=== PATIENT | male | born 1940 | race Caucasian/White ===

== ENCOUNTER → 2019-08-15 14:15 | Outpatient (BNVA) | payer MEDICARE, SELFPAY | PROVIDERS: Family Provider Internal Medicine; PCP Internal Medicine; Visit Provider Urology | DX: R97.20 Elevated prostate specific antigen [PSA] (principal) | CPT/HCPCS: 84153 ==

== ENCOUNTER → 2019-08-18 09:05 | Outpatient (BNVA) | payer MEDICARE, SELFPAY | PROVIDERS: Family Provider Internal Medicine; PCP Internal Medicine; Visit Provider Urology | DX: N41.1 Chronic prostatitis (principal); N40.1 Benign prostatic hyperplasia with lower urinary tract symptoms; R97.20 Elevated prostate specific antigen [PSA] | CPT/HCPCS: 81001 ==

== ENCOUNTER 2019-08-19 14:00 | Outpatient (CLI) | payer MEDICARE, SELFPAY ==
--- NOTE | 2019-08-19 14:06 | XR_ITS ---
WS: [id number] Right shoulder, 3 views, 08/19/2019 Clinical Data: pain in right shoulder Comparison: None. Findings: No fractures or dislocations are seen. The AC joint is normal. There are arthritic changes on the usama face of the glenoid fossa. There is a spur at the inferior aspect of the humeral head as it articulat es with the inferior aspect of the glenoid.The adjacent right clavicle and right ribs are not remarka ble. XR/XR shoulder RT min 2V* [id number] Impression: Osteoarthritic change of the glenoid fossa and inferior aspect of the medial ri ght humeral head.
== END 2019-08-19 14:01 | disposition home or self-care (01) ==
LOC: RAD 14:03
PROVIDERS: Family Provider Internal Medicine; PCP Internal Medicine; Visit Provider Internal Medicine
DX: M25.511 Pain in right shoulder (principal)
CPT/HCPCS: 73030

== ENCOUNTER 2019-11-29 13:21 | Outpatient (CLI) | payer MEDICARE, SELFPAY ==
--- NOTE | 2019-11-29 13:46 | MR_ITS ---
WS: [id number] MRI RIGHT SHOULDER HISTORY: RIGHT SHOULDER PAIN COMPARISON: Radiographs 08/19/2019 TECHNIQUE: Multiplanar sequences of the shoulder joint are submitted. Complete tear distal supraspinatus tendon with the tendon retracted to the medial humeral head. There is fluid extending along the tendon sheath. Severe atrophy of the supraspinatus muscle. Motion obscuring detail of the tendons of the infraspinatus and subscapularis muscles. No significant atrophy but there is increased signal in the distal tendons. Partial tears versus tendinopathy. Ther e is no muscle atrophy of the subscapularis or infraspinatus. Biceps tendon is in normal position with increased fluid in the tendon sheath. Osteophytic ridging with subchondral cystic changes, loss of cartilage and edema in the humeral head. Severe subchondral cystic changes and loss of cartilage involving the glenoid. Marked narrowing of t he glenohumeral joint. Increased signal throughout the entire labrum. Moderate AC joint narrowing with bony hypertrophy. Increase fluid in the subacromial and subdeltoid b ursa. Humeral head is high riding abutting the undersurface of the distal acromion. No os acromion. MR/MR shoulder RT wo con* [id number] IMPRESSION: 1. Severe degenerative changes at the glenohumeral joint. 2. Torn retracted supraspinatus tendon. Chronic tear as there is muscle atroph y. 3. Motion artifact obscuring detail of the distal subscapularis and infraspina tus tendons. There is increased signal. Partial tears versus tendinopathy. 4. Severe degenerative changes involving the humeral head and at the glenohume ral joint with moderate AC joint arthritis.
== END 2019-11-29 13:22 | disposition home or self-care (01) ==
LOC: RADWPI 13:24
PROVIDERS: Family Provider Internal Medicine; PCP Internal Medicine; Visit Provider Internal Medicine
DX: M25.511 Pain in right shoulder (principal); M75.101 Unspecified rotator cuff tear or rupture of right shoulder, not specified as traumatic
CPT/HCPCS: 73221

== ENCOUNTER → 2020-01-16 13:54 | Outpatient (BNVA) | payer MEDICARE, SELFPAY | PROVIDERS: Family Provider Internal Medicine; PCP Internal Medicine; Visit Provider Nurse Practitioner Family | DX: R97.20 Elevated prostate specific antigen [PSA] (principal) | CPT/HCPCS: 84153 ==

== ENCOUNTER → 2020-01-19 09:45 | Outpatient (BNVA) | payer MEDICARE, SELFPAY | PROVIDERS: Family Provider Internal Medicine; PCP Internal Medicine; Visit Provider Urology | DX: R97.20 Elevated prostate specific antigen [PSA] (principal); N40.1 Benign prostatic hyperplasia with lower urinary tract symptoms | CPT/HCPCS: 81001 ==

== ENCOUNTER 2020-06-29 08:44 | Outpatient (CLI) | payer MEDICARE, SELFPAY ==
--- NOTE | 2020-06-29 09:00 | CT_ITS ---
WS: [id number] CT scan of the chest with IV contrast, additional two-dimensional coronal and sagittal reconstruction was performed. 06/29/2020 Clinical Data: PULMONARY NODULE Comparison: CT chest, 03/09/2018. DLP: 715.[address] scans at [facility] use at least one of these dose optimization techniques: automat ed exposure control; mA and/or kV adjustment per patient size (includes targeted exams where dose is matched to clinical indication); or iterative reconstruction. Findings: There is a right upper lobe nodule measuring 0.6 cm seen best on axial image 1971 which is unchanged. The there is a nodule at the right pleural surface seen best on axial image 32 of 71 measuring 1.1 c m unchanged. The left upper lobe nodule is not imaged. There are emphysematous changes throughout the lungs especially in the upper lobes. No large masses are seen. There are no effusions. No pneumonia or pneumothorax is seen. The heart size is normal with no pericardial effusion. The pulmonary arteria l system and thoracic aorta demonstrate no dilatations. The aortic arch and descending aorta show ca lcification. 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 The trachea bifurcates normally into the bronchi. The thyroid gland shows normal enhancement. There is no axillary or signi ficant mediastinal adenopathy. The upper abdomen shows no change from before. There are bilateral renal cysts. Osteoarthritic change of the thoracic vertebral bodies is seen. CT/CT chest w con* [id number] Impression: 1. 2 right upper lobe nodules are unchanged. 2. The left upper lobe nodule is no longer present. No new nodules or masses ar e seen. 3. Emphysematous changes throughout both lungs.
[2020-06-29] MEDS: iodixanol 320 mg/mL 100mL Btl IV (09:35)
== END 2020-06-29 08:45 | disposition home or self-care (01) ==
LOC: RADWPI 08:49
PROVIDERS: PCP Internal Medicine; Visit Provider Internal Medicine
DX: R91.1 Solitary pulmonary nodule (principal); R91.8 Other nonspecific abnormal finding of lung field
CPT/HCPCS: 71260; Q9967

== ENCOUNTER → 2020-07-18 10:17 | Outpatient (BNVA) | payer MEDICARE, SELFPAY | PROVIDERS: PCP Internal Medicine; Visit Provider Specialist | DX: M65.341 Trigger finger, right ring finger (principal) | CPT/HCPCS: 73130 ==

== ENCOUNTER → 2020-07-23 14:49 | Outpatient (BNVA) | payer MEDICARE, SELFPAY | PROVIDERS: PCP Internal Medicine; Visit Provider Specialist | DX: Z20.822 Contact with and (suspected) exposure to COVID-19 (principal) | CPT/HCPCS: 87635 ==

== ENCOUNTER 2020-07-27 06:45 | Day surgery (SDC) | payer MEDICARE, SELFPAY ==
[2020-07-26 13:14] VITALS: BMI 21.2
--- NOTE | 2020-07-27 06:56 | W.PM.OPSUD ---
Surgery/Procedure H&P Update DATE OF PROCEDURE: July 27, 2020 DATE H&P PERFORMED: 07/18/20 H&P UPDATE INFORMATION: I have reviewed H&P completed within last 30 days, I have examined patient prior to procedure, No changes to prior documentation and H&P is in [facility] EMR on date indicated PREOP DIAGNOSIS: Ring long and ring trigger fingers PLANNED PROCEDURE: Operation Date: 07/27/20 08:00 Proposed Procedures p Right ring and long finger trigger digit release 54126 M65.30(Right) - Martha Gomez MD Related Problem List Diagnoses (1) Trigger finger, right middle finger: (2) Trigger finger, right ring finger:
[2020-07-27 07:07] VITALS: BP 159/77; PULSE 85; RESP 18; TEMP 36.3; O2SAT 99
[2020-07-27 07:18] LABS: Basophils # 0.1 10^3/uL (0.0-0.1); Basophils % 0.7 %; Eosinophils # 0.3 10^3/uL (0.0-0.8); Hematocrit 42.5 % (42.0-52.0); Hemoglobin 13.6 g/dL (11.7-16.6); Lymphocytes # 1.3 10^3/uL (0.8-4.8); Lymphocytes % 15.2 %; Mean Corpuscular Hemoglobin 31.6 pg (28.0-34.0); Mean Corpuscular Volume 98.6 fL (80-94); Mean Platelet Volume 9.1 fL (7.4-10.4); Monocytes # 1.1 10^3/uL (0.2-0.9); Monocytes % 12.4 %; Neutrophils # 5.88 10^3/uL (1.8-7.7); Neutrophils % 68.6 %; Nucleated Red Blood Cells % 0 %; Platelet Count 283 10^3/cmm (130-400); Red Blood Count 4.31 10^6/uL (4.1-5.3); Red Cell Distribution Width 13.6 % (12.1-15.1); White Blood Count 8.6 10^3/uL (4.0-10.0)
[2020-07-27] MEDS: CELEcoxib 200 mg Capsule 400 MG PO (07:31)
[2020-07-27] MEDS: sodium chloride 0.9% 1,000 ML 30 ML IV (07:31)
[2020-07-27 07:33] LABS: Alanine Aminotransferase 12 U/L (0-41); Albumin Level 4.1 g/dL (3.5-5.2); Alkaline Phosphatase 71 IU/L (40-130); Anion Gap 11.3 (5-19); Aspartate Amino Transferase 15 U/L (0-40); Blood Urea Nitrogen 23 mg/dL (8-23); Calcium 9.6 mg/dL (8.5-10.5); Carbon Dioxide 31 mmol/L (22-29); Chloride 104 mmol/L (98-107); Creatinine Clr Calc Pharmacy 46.1397; Globulin 3.1 g/dL (1.3-4.6); Glucose 106 mg/dL (65-115); Osmolality Calculated 298 mOsm/kg (285-295); Potassium 4.3 mmol/L (3.5-5.1); Sodium 142 mmol/L (136-145); Total Bilirubin 0.3 mg/dL (0.15-1.2); Total Protein 7.2 g/dL (6.6-8.7)
--- NOTE | 2020-07-27 08:24 | ANES.PREANE2 ---
Pre-Anesthetic Assessment Pre-Anesthetic Assessment: Height/Weight: Height 1.73 m Weight 63.503 kg Temp Pulse Resp BP Pulse Ox 97.3 F L 85 18 159/77 99 07/27/20 07:07 07/27/20 07:07 07/27/20 07:07 07/27/20 07:07 07/27/20 07:07 Preop Diagnosis: Ring long and ring trigger fingers Proposed Procedure: Operation Date: 07/27/20 08:00 Proposed Procedures p Right ring and long finger trigger digit release [id number] M65.30(Right) - Martha Gomez MD Was Beta Ankur taken within 24 hours: N/A Last intake: Intake Last Liquid Date 07/26/20 Last Solid Date 07/26/20 Social: Social History: Tobacco and No alcohol Exam: Pre-Anes Outpt Exam: alert, oriented x 3 and regular rate & rhythm Additional Exam Findings (including area of procedure): rhonchi Airway: Submandibular: WNL Cervical ROM: WNL MP: 2 Dentition: False Pulmonary: Pulmonary: COPD CV/HEM: CV/HEM: HTN : : None reported Hepatic: Hepatic: None reported GI: GI: None reported Metabolic: Metabolic: None reported Musc/skel: Musc/skel: None reported Neuropsych: Neuropsych: None reported Anesthetic Plan: ASA status: 3 Anesthesia: MAC Risk of > 500 ml blood loss (7ml/kg in children): No Meds/Allergies Current Medications: Current Medications Generic Name Dose Route Start Last Admin Trade Name Freq PRN Reason Stop Dose Admin Sodium Chloride 1,000 mls @ 30 ml s/hr 07/27/20 06:45 07/27/20 07:31 Sodium Chloride 0.9% IV 07/28/20 06:44 30 mls/hr .Q24H ADDY Administration PFSH Anesthesia PFSH: Medical History (Updated 07/19/20 @ 11:16 by Martha Gomez MD) Benign prostatic hyperplasia with lower urinary tract symptoms Chronic prostatitis Elevated PSA Surgical History History of amputation of toe History of appendectomy History of inguinal hernia repair right History of tonsillectomy Family History Mother , at age 84-leukemia No problems noted. Father , at age 64--heart attack No problems noted. Social History Smoking and tobacco status: current every day smoker Alcohol intake: never Marital status: Current occupational status: employed History of recent travel: No Data Anesthesia CBC & Chem 7: 07/27/20 07:10 07/27/20 07:10 Other Labs: Laboratory Results - last 48 hr 07/27/20 07/27/20 07:10 07:10 WBC 8.6 RBC 4.31 Hgb 13.6 Hct 42.5 MCV 98.6 H MCH 31.6 MCHC 32.0 RDW 13.6 Plt Count 283 MPV 9.1 Neut % (Auto) 68.6 Lymph % (Auto) 15.2 [place] % (Auto) 12.4 Eos % (Auto) 3.0 Baso % (Auto) 0.7 Neut # (Auto) 5.88 Lymph # (Auto) 1.3 [place] # (Auto) 1.1 H Eos # (Auto) 0.3 Baso # (Auto) 0.1 Nucleated RBC % (auto) 0 Nucleated RBCs # 0.0 Sodium 142 Potassium 4.3 Chloride 104 Carbon Dioxide 31 H Anion Gap 11.3 BUN 23 Creatinine 1.2 GFR Calculation Not Reportable Glucose 106 Calculated Osmolality 298 H Calcium 9.6 Total Bilirubin 0.3 AST 15 ALT 12 Alkaline Phosphatase 71 Total Protein 7.2 Albumin 4.1 Globulin 3.1 Cardiac Studies: No Data to Display
[2020-07-27 09:30] VITALS: BP 128/73; PULSE 75; RESP 18; TEMP 36.4; O2SAT 100
--- NOTE | 2020-07-27 09:34 | W.PM.OPSUD ---
Surgery/Procedure H&P Update DATE OF PROCEDURE: July 27, 2020 DATE H&P PERFORMED: 07/18/20 H&P UPDATE INFORMATION: I have reviewed H&P completed within last 30 days, I have examined patient prior to procedure, No changes to prior documentation and H&P is in [facility] on date indicated PREOP DIAGNOSIS: Ring long and ring trigger fingers PLANNED PROCEDURE: Operation Date: 07/27/20 08:00 Proposed Procedures p Right ring and long finger trigger digit release 91271 M65.30(Right) - Martha Gomez MD
--- NOTE | 2020-07-27 09:35 | PM.OP ---
Operative Report Date of procedure: July 27, 2020 Pre-op Diagnosis: Ring long and ring trigger fingers Post-op diagnosis: same Post-op Findings: Significant compression across the tendons with minimal tendon damage. 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 Primarily, it involves the long and ring fingers. After discussion, he wished to proceed with trigger finger release of both fingers. Risks and complications were discussed with him. Preoperatively, they were also discussed with his . Consents were signed. Procedure: Patient was brought to the operating theater. He was placed on the operating room table. A Accord block was administered without difficulty. Patient tolerated it well. Prophylactic antibiotic, Ancef 2 g was administered. A tourniquet was placed high on the arm and was elevated for the Accord block following exsanguination. Tourniquet time was 31 minutes. Surgical pause was performed prior to commencement of the surgical procedure. At the time of the surgical pause we identified the site and side of surgery. We also identified the patient's identity and appropriate administration of IV antibiotics. Following the surgical pause, an incision was made along the distal palmar crease beneath the long and ring fingers. Dissection continued through the skin to the subcutaneous tissues using a scalpel. Blunt dissection was then utilized to spread soft tissues and allow access to the A1 wily. Each A1 wily was identified. It was then incised longitudinally and sharply using a knife. This was accomplished without difficulty and atraumatically. Once the A1 pulleys were released, tendons were brought up out of the wound and evaluated. There were no gross masses on the tendons. Tendons were returned to normal position. Proximally, we also evaluated for compression secondary to fibrous tissue. Release was accomplished proximally as well. We then irrigated the wound and subsequently closed it with 3-0 nylon with an interrupted mattress type suture. Following closure of the wound, the wound was injected with local anesthetic into the subcutaneous tissues. Sterile dressing was then placed consisting of OpSite, fluffed fluffs, sterile soft roll, and an Mateus wrap. The patient was returned to recovery in satisfactory condition. He will be discharged home to follow-up with me in the office. There were no complications and no specimens.
[2020-07-27 09:44] VITALS: BP 136/82; PULSE 73; RESP 18; O2SAT 100
--- NOTE | 2020-07-27 10:08 | ANE.PACU2 ---
Inpatient post-anesthesia follow up: Airway intact: Yes Vital signs: Temperature 97.6 F Pulse Rate 73 Respiratory Rate 18 Blood Pressure 136/82 Pulse Oximetry 100 Oxygen Delivery Me thod Nasal Cannula Oxygen Flow Rate 3 Fraction of Inspir ed Oxygen Hydration adequate: Yes Nausea and vomiting: No Pain level: 1 Mental status: Baseline
== END 2020-07-27 10:10 | disposition home or self-care (01) ==
PROVIDERS: PCP Internal Medicine; Visit Provider Specialist
PROC: (CPT 26055; principal; 2020-07-27 08:00)
DX: M65.341 Trigger finger, right ring finger (principal); M65.331 Trigger finger, right middle finger; J44.9 Chronic obstructive pulmonary disease, unspecified; I10 Essential (primary) hypertension; F17.210 Nicotine dependence, cigarettes, uncomplicated
CPT/HCPCS: 26055 ×2; 12345; 36415; 80053; 85025; 96365; J0131; J0690; J3490; J7030

== ENCOUNTER → 2020-07-30 11:24 | Outpatient (BNVA) | payer MEDICARE, SELFPAY | PROVIDERS: PCP Internal Medicine; Visit Provider Urology | DX: R97.20 Elevated prostate specific antigen [PSA] (principal) | CPT/HCPCS: 84153 ==

== ENCOUNTER → 2020-08-01 11:04 | Outpatient (BNVA) | payer MEDICARE, SELFPAY | PROVIDERS: PCP Internal Medicine; Visit Provider Urology | DX: N40.1 Benign prostatic hyperplasia with lower urinary tract symptoms (principal); R97.20 Elevated prostate specific antigen [PSA] | CPT/HCPCS: 81003 ==

== ENCOUNTER → 2020-10-17 13:39 | Outpatient (BNVA) | payer MEDICARE, SELFPAY | PROVIDERS: PCP Internal Medicine; Visit Provider Internal Medicine | DX: M65.331 Trigger finger, right middle finger (principal); M65.341 Trigger finger, right ring finger; Z20.822 Contact with and (suspected) exposure to COVID-19 | CPT/HCPCS: 87635 ==

== ENCOUNTER 2020-10-23 07:10 | Outpatient (CLI) | payer MEDICARE, SELFPAY ==
--- NOTE | 2020-10-23 10:35 | PFTS_ITS ---
Date of Study:10/23/20 Date of Dictation: 10/24/20 MECHANICS: Postbronchodilator Forced vital capacity (FVC) is reduced . Postbronchodilator Forced expiratory volume in one second (FEV1) is severely reduced 36%. FEV1/FVC is reduced. FLOW VOLUME LOOP: severe scooping of expiratory limb suggestive of obstruction of airways. LUNG VOLUMES: Not measured DIFFUSING CAPACITY FOR CARBON MONOXIDE: severely reduced 30% . INTERPRETATION: The spirometry consistent with severe obstructive ventilatory defect with a postbronchodilator FEV1 36% and 0.97 L. Lung volumes not measured. There is severe gas transfer defect 30%. 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 Correlate clinically. MTDD
== END 2020-10-23 07:11 | disposition home or self-care (01) ==
LOC: RT 07:11
PROVIDERS: PCP Internal Medicine; Visit Provider Internal Medicine
DX: J44.9 Chronic obstructive pulmonary disease, unspecified (principal)
CPT/HCPCS: 94060; 94729; J7611

== ENCOUNTER → 2020-11-15 14:29 | Outpatient (BNVA) | payer MEDICARE, SELFPAY | PROVIDERS: PCP Internal Medicine; Visit Provider Surgery | DX: K40.90 Unilateral inguinal hernia, without obstruction or gangrene, not specified as recurrent (principal); Z20.822 Contact with and (suspected) exposure to COVID-19 | CPT/HCPCS: 87635 ==

== ENCOUNTER 2020-11-21 08:12 | Day surgery (SDC) | payer MEDICARE, SELFPAY ==
[2020-11-20 14:50] VITALS: BMI 20.7
[2020-11-21] VITALS (12 sets, daily range): BP systolic 126–158; BP diastolic 65–83; PULSE 70–89; RESP 15–20; TEMP 36.3–36.6; O2SAT 95–100
[2020-11-21] MEDS: sodium chloride 0.9% 1,000 ML 30 ML IV (08:41)
--- NOTE | 2020-11-21 08:41 | ECG_ITS ---
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 Measurements Intervals [place] Rate: 66 P: 75 MS: 141 QRS: -76 QRSD: 132 T: 49 QT: 399 QTc: 421 Interpretive Statements SINUS RHYTHM MARKED LEFT AXIS DEVIATION [QRS AXIS < -30] RIGHT BUNDLE BRANCH BLOCK [120+ ms QRS DURATION, UPRIGHT V1, 40+ ms S IN I/aVL/V4/V5/V6] Compared to ECG 04/26/2018 08:57:54 Left-axis deviation now present Right bundle-branch block now present Sinus arrhythmia no longer present Myocardial infarct finding no longer present Electronically Signed On 11-21-2020 18:22:16 CDT by Rama Condon M.D. [email or web address]
--- NOTE | 2020-11-21 09:06 | P.HP_ITS ---
Same Day Surgery H&P Indication for Procedure/HPI DATE OF PROCEDURE: November 21, 2020 CHIEF COMPLAINT/INDICATIONFOR SURGICAL PROCEDURE: Recurrent inguinal hernia PREOP DIAGNOSIS: Recurrent right inguinal hernia PLANNED PROCEDRUE: Operation Date: 11/21/20 10:00 Proposed Procedures p Laparoscopic Inguinal Hernia Repair 08100 K40.90(Not Applicable) - Ted marc MD Medications/Allergies* Home Medications Medication Instructions Recorded Confirmed Type acetaminophen 500 mg tablet 500 mg PO Q6H PRN 08/18/19 11/21/20 History albuterol sulfate 2.5 mg INHALATION Q4H PRN 08/18/19 11/21/20 History albuterol sulfate 90 mcg/actuation 2 puff INHALATION Q6H PRN 08/18/19 11/21/20 H istory aerosol inhaler ascorbic acid (vitamin C) 1,000 mg 1,000 mg PO Q12H 08/18/19 11/20/20 History tablet,extended release fluticasone fur. 100 mcg-umeclid 1 inh INHALATION DAILY 08/18/19 11/21/20 History 62.5 mcg-vilant 25 mcg inhalat.powder ibuprofen 200 mg capsule 200 mg PO Q6H PRN 08/18/19 11/21/20 History meclizine 25 mg tablet 25 mg PO .Q6 HOURS PRN tab 08/18/19 11/21/20 History multivitamin,jw-gthh-nwbivtbc 1 tab PO DAILY 08/18/19 11/20/20 History atorvastatin [Lipitor] 20 mg PO DAILY 07/26/20 11/20/20 History esomeprazole magnesium [Nexium] 20 mg PO DAILY 11/20/20 11/20/20 History Allergies/Adverse Reactions Allergy/AdvReac Type Severity Reaction Status Date / Time No Known Allergies Allergy Verified 11/20/20 14:46 Current Medications: Generic Name Dose Route Start Last Admin Trade Name Freq PRN Reason Stop Dose Admin Sodium Chloride 1,000 mls @ 30 mls/hr 11/21/20 08:30 11/21/20 08:41 Sodium Chloride 0.9% IV 11/22/20 08:29 30 mls/hr .Q24H ADDY Administration Pertinent History/Comorbid Conditions* Medical History (Updated 11/06/20 @ 16:30 by Ted Moore MD) Benign prostatic hyperplasia with lower urinary tract symptoms Chronic prostatitis COPD (chronic obstructive pulmonary disease) Elevated PSA Surgical History (Updated 11/06/20 @ 16:30 by Ted Moore MD) History of amputation of toe History of appendectomy History of inguinal hernia repair right History of tonsillectomy Status post left inguinal hernia repair Family History Father, at age 64--heart attack Mother, at age 84-leukemia Social History Smoking and tobacco status: current every day smoker cigarettes Packs smoked per day: 1 Quit status (tobacco): has tried quititng Alcohol intake: never Marital status: Current occupational status: employed History of recent travel: No Pertinent Exam Findings alert, oriented x 3 and operative site marked Recommendations Surgery/Procedure today Coding Level of Care Code 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
[2020-11-21] MEDS: ipratropium-albuterol 3 mL Neb INHALATION (09:16)
--- NOTE | 2020-11-21 09:17 | P.ANESASSM_ITS ---
Pre-Anesthetic Assessment Pre-Anesthetic Assessment: Height/Weight: Height 1.75 m Weight 63.503 kg Temp Pulse Resp BP Pulse Ox 97.6 F 89 18 158/80 95 11/21/20 08:34 11/21/20 09:16 11/21/20 09:11 11/21/20 08:34 11/21/20 09:11 Preop Diagnosis: Recurrent right inguinal hernia Proposed Procedure: Operation Date: 11/21/20 10:00 Proposed Procedures p Laparoscopic Inguinal Hernia Repair 13720 K40.90(Not Applicable) - Ted Moore MD Familial anesthetic complications: none Was Beta Ankur taken within 24 hours: N/A Was Clonidine taken within 24 hours: N/A Last intake: Intake Last Liquid Date 11/20/20 Last Liquid Time 21:00 Last Solid Date 11/20/20 Last Solid Time 21:00 Social: Social History: No alcohol and No tobacco Exam: Pre-Anes Outpt Exam: alert, oriented x 3, clear to auscultation bilaterally and regular rate & rhythm Airway: Cervical ROM: WNL MP: 2 Dentition: False Pulmonary: Pulmonary: COPD CV/HEM: CV/HEM: HTN Anesthetic Plan: ASA status: 3 Anesthesia: General Risk of > 500 ml blood loss (7ml/kg in children): No Meds/Allergies Current Medications: Current Medications Generic Name Dose Route Start Last Admin Trade Name Freq PRN Reason Stop Dose Admin Sodium Chloride 1,000 mls @ 30 ml s/hr 11/21/20 08:30 11/21/20 08:41 Sodium Chloride 0.9% IV 11/22/20 08:29 30 mls/hr .Q24H ADDY Administration PFSH Anesthesia PFSH: Medical History Benign prostatic hyperplasia with lower urinary tract symptoms Chronic prostatitis COPD (chronic obstructive pulmonary disease) Elevated PSA Surgical History History of amputation of toe History of appendectomy History of inguinal hernia repair right History of tonsillectomy Status post left inguinal hernia repair Family History Mother , at age 84-leukemia No problems noted. Father , at age 64--heart attack No problems noted. Social History Smoking and tobacco status: current every day smoker cigarettes Packs smoked per day: 1 Quit status (tobacco): has tried quititng Alcohol intake: never Marital status: Current occupational status: employed History of recent travel: No Data Anesthesia Cardiac Studies: No Data to Display
--- NOTE | 2020-11-21 11:16 | P.OP_ITS ---
Operative Report Date of procedure: November 21, 2020 Pre-op Diagnosis: Recurrent right inguinal hernia Post-op Diagnosis: Recurrent reducible direct right inguinal hernia Procedure Done: Laparoscopic total extraperitoneal repair of recurrent right direct inguinal hernia with 16 x 10 cm Surgimax 3D mesh Pathology: none sent Surgeon: Ted Moore Anesthesia: General Condition: stable Disposition: PACU Procedure: The patient was taken to the operating room and intubated under general anesthesia. After IV antibiotic was administered, the abdomen was prepped and draped in a sterile manner. Using a 15 blade, a 1.0 cm transverse incision was made infraumbilically on the right side. Subcutaneous tissue was divided using electrocautery and the anterior rectus sheath divided using an 11 blade. The rectus muscle was retracted laterally and the extraperitoneal space identified. A 11 mm port was placed and 12 mm of pneumoperitoneum was created. A 10 mm 30? scope was introduced and the retrorectus space was opened using the camera up to the pubic symphysis and 5 mm ports were placed in the midline, one 2-fingerbreadths above the pubic symphysis and the other midway between these two ports under direct visualization. Blunt dissection was carried out to open up the tissue in the midline and to the pubic symphysis, which was identified. The dissection was then carried laterally where the iliopubic tract was sofia ntified. There was no femoral or obturator hernia noted but there was moderate sized direct hernia which was reduced without difficulty. The inferior epigastric artery was identified and dissection was carried posterior to it and laterally, the space was opened up to the level of the umbilicus superior to the anterior superior iliac spine. I then proceeded to dissect out the spermatic cord and there was no indirect hernia sac noted. 16 x 10cm Surigmax 3D mesh was rolled and introduced through the 10 mm port and then rolled laterally and apposed well against the abdominal wall to cover the myopectineal orifice completely. 10 Cc of 0.5% Marcaine was infiltrated into the preperitoneal space. The extraperitoneal space was desufflated under direct visualization to ensure no slippage of hernial sac under the mesh. All ports were removed, the anterior rectus fascia at the infraumbilical port closed using figure of eight 0 Vicryl sutures, subcutaneous tissue approximated using 3-0 Vicryl sutures and skin at all three port sites were closed using running subcuticular 4-0 Monocryl sutures and Dermabond. 10 mL of 0.5% Marcaine was infiltrated at the port sites. The patient was stable throughout the procedure, extubated and transferred to recovery room.
[2020-11-21] MEDS: HYDROcodone-acetaminophen 5-325 mg Tablet 1 TAB PO (11:49)
--- NOTE | 2020-11-21 14:11 | ANE.PACU2 ---
Inpatient post-anesthesia follow up: Airway intact: Yes Vital signs: Temperature 97.8 F Pulse Rate 70 Respiratory Rate 18 Blood Pressure 133/77 Pulse Oximetry 99 Oxygen Delivery Me thod Nasal Cannula Oxygen Flow Rate 2.0 Fraction of Inspir ed Oxygen Hydration adequate: Yes Nausea and vomiting: No Pain level: 1 Mental status: Baseline
== END 2020-11-21 12:55 | disposition home or self-care (01) ==
PROVIDERS: PCP Internal Medicine; Visit Provider Surgery
PROC: (CPT 49650; principal; 2020-11-21 09:50)
DX: K40.91 Unilateral inguinal hernia, without obstruction or gangrene, recurrent (principal); J44.9 Chronic obstructive pulmonary disease, unspecified; I10 Essential (primary) hypertension; N40.0 Benign prostatic hyperplasia without lower urinary tract symptoms; F17.210 Nicotine dependence, cigarettes, uncomplicated
CPT/HCPCS: 49651; 93005; 94640; C1781; J0690; J2370; J2704; J2710; J3010; J3490; J7030

== ENCOUNTER 2021-01-24 12:57 | Outpatient (RCR) | payer MEDICARE, SELFPAY | END 2021-02-09 23:59 | disposition home or self-care (01) | LOC: PULRHB 12:57 | PROVIDERS: PCP Internal Medicine; Visit Provider Internal Medicine | DX: J44.9 Chronic obstructive pulmonary disease, unspecified (principal); R97.20 Elevated prostate specific antigen [PSA]; N40.1 Benign prostatic hyperplasia with lower urinary tract symptoms | CPT/HCPCS: 84153; 94618; G0424 ==

== ENCOUNTER → 2021-01-29 12:20 | Outpatient (BNVA) | payer MEDICARE, SELFPAY | PROVIDERS: PCP Internal Medicine; Visit Provider Urology | DX: R97.20 Elevated prostate specific antigen [PSA] (principal); N40.1 Benign prostatic hyperplasia with lower urinary tract symptoms | CPT/HCPCS: 81003 ==

== ENCOUNTER 2021-02-10 06:00 | Outpatient (RCR) | payer MEDICARE, SELFPAY | END 2021-03-12 23:59 | disposition home or self-care (01) | LOC: PULRHB 06:00 | PROVIDERS: PCP Internal Medicine; Visit Provider Internal Medicine | DX: J44.9 Chronic obstructive pulmonary disease, unspecified (principal) | CPT/HCPCS: G0237; G0238; G0424 ==

== ENCOUNTER 2021-03-06 08:25 | Outpatient (CLI) | payer MEDICARE, SELFPAY ==
--- NOTE | 2021-03-06 08:29 | MR_ITS ---
WS: [id number] MRI HEAD WITH CONTRAST TECHNIQUE: Sagittal T1, T2 axial, T2 axial FLAIR, axial susceptibility weighted imaging, axial diffus ion weighted images, and coronal T2 images were obtained. Pre and post-T1 axial and post T1 coronal i mages. ADC and FSPGR images. CLINICAL INFORMATION: LEFT FOOT DROP COMPARISON: None. FINDINGS: No evidence of restricted diffusion to suggest acute pneumonia. Ventricular system and basal cisterns are patent. Mild small vessel changes. Moderate parenchymal volume loss. Mild small vessel changes i n the [place]. Poor flow in the left ICA at the skull base likely due to high-grade cervical stenosis. R ecommend further evaluation with CTA neck. Normal right ICA fluid. No extra axial fluid collections. No evidence of mass or mass effect. Mild mucosal thickening in the paranasal sinuses. Mastoid air celio ls are well aerated. Normal optic chiasm and pituitary infundibulum. Slightly asymmetric pituitary tissue likely incidenta l. Normal cavernous sinuses and Meckel's cave.No abnormal gadolinium enhancement. Hypoplastic normal variant right transverse sinus. Normal dural venous sinuses. MR/MR head wo/w con [id number] IMPRESSION: 1. No evidence of restricted diffusion to suggest acute ischemia. Ventricular system and basal cisterns are patent. 2. Mild small vessel changes with moderate parenchymal volume loss. 3. Poor flow in the left ICA at the skull base likely due to high-grade cervic al stenosis. Recommend further evaluation with CTA neck 4. Mild symmetric atrophy temporal lobes and hippocampal formations 5. . No abnormal gadolinium enhancement. 6. No hemosiderin on the susceptibility weighted images.
[2021-03-06] MEDS: gadobenate dimeglumine 20 mL vial IV (09:26)
== END 2021-03-06 08:26 | disposition home or self-care (01) ==
LOC: RADSHAW 08:29
PROVIDERS: PCP Internal Medicine; Visit Provider Internal Medicine
DX: M21.372 Foot drop, left foot (principal)
CPT/HCPCS: 70553; A9577

== ENCOUNTER 2021-03-13 06:00 | Outpatient (RCR) | payer MEDICARE, SELFPAY | END 2021-04-11 23:59 | disposition home or self-care (01) | LOC: PULRHB 06:00 | PROVIDERS: PCP Internal Medicine; Visit Provider Internal Medicine | DX: J44.9 Chronic obstructive pulmonary disease, unspecified (principal) | CPT/HCPCS: G0424 ==

== ENCOUNTER 2021-03-21 12:26 | Outpatient (CLI) | payer MEDICARE, SELFPAY ==
--- NOTE | 2021-03-21 12:49 | CT_ITS ---
WS: [id number] CT ANGIOGRAM CAROTID ARTERIES HISTORY: ABNORMAL BRAIN MRI TECHNIQUE: CT angiogram is performed of the carotid arteries. During arterial injection imaging is ob tained from the skull base to the aortic arch in 1.25 mm imaging. Coronal and sagittal reformats are submitted, MIP imaging also reviewed. Additional multiplanar reformats of the carotid arteries are hammonds bmitted. NASCET criteria utilized. All CT scans at [facility] use at least one of these dose optimization techniques: automated exposure control; mA and/or kV adjustment per patient size (includ es targeted exams where dose is matched to clinical indication); or iterative reconstruction. CONTRAST: Visipaque 320; 95 mL IV. DLP: 890.55 mGycm COMPARISON: MRI brain 03/06/2021 Right carotid: Common carotid artery: Arises normally from the innominate. Scattered calcified plaque and intimal th ickening. Internal carotid artery: Increasing calcified plaque and intimal thickening at the bifurcation. 40% s tenosis involving the origin of the RIGHT ICA. External carotid artery: Patent. Left carotid: Common carotid artery: Arises normally from the arch. Intimal thickening is asymmetric along the ante rior proximal LEFT common carotid artery. Stenosis less than 30%. 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 There is dense calc ified plaque in intimal thickening. External carotid artery: Patent. Right vertebral artery: Unremarkable. Left vertebral artery: Unremarkable. Arises normally from the left subclavian artery. Subclavian arteries: Poor visualization of the RIGHT subclavian artery due to contrast within the vei n. Atherosclerotic plaque in the LEFT subclavian artery. No stenosis. Upper thorax: Marked emphysematous changes at the lung apices. Thyroid gland: Very small caliber atrophied thyroid. Osseous structures: Moderate cervical spondylosis. No fracture. Skull base: Lack of contrast on the intracranial LEFT ICA due to the complete occlusion more proximal ly. CT/CT angio neck [id number] IMPRESSION: 1. Complete occlusion LEFT extracranial ICA. 2. 40% stenosis proximal RIGHT ICA. 3. Vertebral arteries are both patent.
[2021-03-21 13:13] LABS: Blood Urea Nitrogen 19 mg/dL (8-23)
[2021-03-21] MEDS: iodixanol 320 mg/mL 100mL Btl IV (13:26)
== END 2021-03-21 12:27 | disposition home or self-care (01) ==
PROVIDERS: PCP Internal Medicine; Visit Provider Internal Medicine
DX: R90.89 Other abnormal findings on diagnostic imaging of central nervous system (principal); I65.23 Occlusion and stenosis of bilateral carotid arteries
CPT/HCPCS: 70498; 82565; 84520; Q9967

== ENCOUNTER 2021-03-21 16:23 | Inpatient (IN) | payer MEDICARE, SELFPAY ==
[2021-03-21] VITALS (7 sets, daily range): BP systolic 127–147; BP diastolic 64–83; PULSE 76–96; RESP 16–20; TEMP 36.6–37.1; O2SAT 99–100; BMI 19.9
--- NOTE | 2021-03-21 16:37 | ECG_ITS ---
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 Measurements Intervals [place] Rate: 89 P: 80 LA: 157 QRS: -84 QRSD: 138 T: -21 QT: 369 QTc: 451 Interpretive Statements SINUS RHYTHM WITH OCCASIONAL SUPRAVENTRICULAR PREMATURE COMPLEXES LEFT AXIS DEVIATION [QRS AXIS < -30] RIGHT BUNDLE BRANCH BLOCK [120+ ms QRS DURATION, UPRIGHT V1, 40+ ms S IN I/aVL/V4/V5/V6] Compared to ECG 11/21/2020 09:03:22 No significant changes Electronically Signed On 03-21-2021 20:08:25 CDT by Jonathan Hill M.D. [email or web address]
--- NOTE | 2021-03-21 16:39 | ED_ITS ---
HPI - General Adult General: Chief complaint: ER Hold Stated complaint: SEIZURE LIKE ACTIVITY Time Seen by Provider: 03/21/21 16:24 History of Present Illness: HPI narrative: Patient is an 80-year-old male with a history of COPD, BPH, prior inguinal hernia repairs who presents the emergency room after a witnessed episode of seizure-like activity. Patient was seen and evaluated earlier today had a CTA study that was performed which showed complete left-sided cranial ICA occlusion. Patient was doing cross for possible shortly after getting home and at which point time, patient's noticed that the patient was not acting like himself. Patient fell to his right side and has a minor abrasion on the right elbow. Patient was noted to be unresponsive and shaking his arms for 2 minutes. Patient also lost his bladder. After yesterday, patient was noted to be confused. reports the patient hitting his head. Patient does not have a history of seizure. No prior shaking-like activity similar to this 1. Patient denies any associated chest pain shortness breath palpitation prior to this happening. Patient has no focal neurological complaints including weakness, dysarthria, dysphagia, diplopia, or vertigo symptoms. Onset: 6 hrs ago Duration:6 hrs Location:home Severity:moderate/severe Review of Systems Narrative: Constitutional: No fever, no chills. HEENT: No vision changes CV: No chest pain, no palpitations PULM: no cough, no dyspnea. GI: No abdominal pain, no N/V/D. : No dysuria MSKEL: No muscle pain SKIN: No new rashes, no lesions. NEURO: No headache, no focal weakness. HEME: No visible bruises PSYCH: Normal mood PFS ED PFSH: Medical History Benign prostatic hyperplasia with lower urinary tract symptoms Chronic prostatitis COPD (chronic obstructive pulmonary disease) Elevated PSA Surgical History History of amputation of toe History of appendectomy History of inguinal hernia repair right History of tonsillectomy Status post left inguinal hernia repair Status post right inguinal hernia repair (11/21/20) Recurrent Family History Mother , at age 84-leukemia No problems noted. Father , at age 64--heart attack No problems noted. Social History Smoking and tobacco status: current every day smoker cigarettes Packs smoked per day: 1 Quit status (tobacco): has tried quititng Alcohol intake: never Marital status: Current occupational status: employed History of recent travel: No Physical Exam Narrative: EXAM NARRATIVE: Head: Atraumatic Eyes: PERRL, conjunctiva without injection ENT: Mucous membrane moist NECK: Supple, ROM intact LUNGS: LCTAB, no crackles/rhonchi CV: RRR ABDOMEN: Soft, nontender in all quadrants EXTREMITY: Normal ROM SKIN: No rash or erythema NEURO: Mental status? Awake, alert, and oriented to self, year, month, location, and situation.? Following simple axial and appendicular commands.? Has appropriate fund of knowledge, comprehension, and insight.? Able to recall and understands pertinent aspects of medical history and current treatment status.? ? Language? Speech is fluent without word-finding difficulties.? 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 ? Cranial nerves? 2,3,4,6: PERRL, EOMI with no nystagmus. 5: Intact sensation to light touch, symmetric? 7: Smile symmetrical, no facial droop.? 8: Hearing grossly intact.? 9,10: Normal palate movement.? 11: Normal strength in trapezius bilaterally 12: Tongue protrudes midline.? ? Motor examination? Normal bulk & tone. Strength as follows (R/L): Delts (5/5), Biceps (5/5), Triceps (5/5), Wrist ext (5/5), hip flexors (5/5), plantarflexors (5/5), dorsiflexors (5/5). ? Sensation? Light Touch: Grossly intact and equal in upper and lower extremities bilaterally? Romberg: Negative.? Distal joint position sense intact ? Coordination? Lnkdlu-nl-zgyv-finger movements intact without dysmetria or past-pointing.? Rapid fingertaps: preserved amplitude without decriment.? No tremor, myoclonus or truncal ataxia.? ? Gait/stance? Steady, normal narrow base gait with appropriate arm swing and turning.? Tandem gait without hesitation or loss of balance. PSYCH: Normal mood and affect Course Vital Signs: Vital signs: Vital Signs Temperature 98.2 F 03/23/21 07:13 Pulse Rate 74 03/23/21 08:40 Respiratory Rate 18 03/23/21 08:40 Blood Pressure 124/61 03/23/21 07:13 Pulse Oximetry 96 03/23/21 08:42 MDM - General Adult MDM Narrative: Medical decision making narrative: 80-year-old male with a history of hypertension, smoking presented to the emergency room after possible syncope versus seizure-like episode. On arrival, patient is hemodynamically stable, neuro exam is intact. EKG showing regular sinus rhythm at HT of [89]. RBBB, LAFB Normal axis. No ST elevations/depressions to suggest coronary occlusion. Normal NM, QRS, QT intervals. Upright T wave in V2-V3 in the setting of RBBB is abnormal but similar to prior EKG from 11/21/2020. Today patient is currently chest pain-free. Troponin is noted to be 112 s/p aspirin and heparin bolus & drip. Patient will be in the hospital for work-up of cardiac syncope. Patient received TDAP arm abrasion. Repeat troponin uptrending. Disposition: Admission Lab Data: Labs: Lab Results 03/21/21 03/21/21 03/21/21 Range/Units 16:05 16:05 16:05 WBC 8.8 (4.0-10.0) 10^3/ uL RBC 3.93 L (4.1-5.3) 10^6/u L Hgb 12.6 (11.7-16.6) g/dL Hct 38.8 L (42.0-52.0) % MCV 98.7 H (80-94) fl MCH 32.1 (28.0-34.0) pg MCHC 32.5 (30.0-36.0) g/dL RDW 13.5 (12.1-15.1) % Plt Count 319 (130-400) 10^3/c mm MPV 9.7 (7.4-10.4) fL Neut % (Auto) 68.5 % Lymph % (Auto) 19.4 % [place] % (Auto) 9.6 % Eos % (Auto) 1.1 % Baso % (Auto) 0.7 % Neut # (Auto) 6.02 (1.8-7.7) 10^3/u L Lymph # (Auto) 1.7 (0.8-4.8) 10^3/u L [place] # (Auto) 0.8 (0.2-0.9) 10^3/u L Eos # (Auto) 0.1 (0.0-0.8) 10^3/u L Baso # (Auto) 0.1 (0.0-0.1) 10^3/u L Nucleated RBC % (a uto) 0 % Nucleated RBCs # 0.0 /100WBC PT (12.1-14.9) SECO NDS INR (0.8-1.2) APTT (23.9-36.7) SECO NDS Sodium 135 L (136-145) mmol/L Potassium 4.8 (3.5-5.1) mmol/L Chloride 99 (98-107) mmol/L Carbon Dioxide 26 (22-29) mmol/L Anion Gap 14.8 (5-19) BUN 17 (8-23) mg/dL Creatinine 1.2 (0.7-1.2) mg/dL GFR Calculation Not Reportable Glucose 142 H (65-115) mg/dL POC Glucose (70-110) mg/dL Estimat Average Gl ucose Hemoglobin A1c (4.0-6.0) % Calculated Osmolal ity 284 L (285-295) mOsm/k g Calcium 8.8 (8.5-10.5) mg/dL Magnesium 2.0 (1.7-2.3) mg/dL Total Bilirubin 0.4 (0.15-1.2) mg/dL AST 33 (0-40) U/L ALT 23 (0-41) U/L Alkaline Phosphata se 71 (40-130) IU/L Troponin T Gen 5 n g/L 126 H* (0-15) ng/L Troponin T 120 Min [place] (0-15) ng/L Delta Troponin T (0-10) ABS# Troponin T Hi Sens 6Hr (0-15) ng/L Troponin T Hi Sens 6Hr Delta (0-12) ng/L NT-Pro-B Natriuret Pep (0-450) pg/mL Total Protein 6.4 L (6.6-8.7) g/dL Albumin 4.0 (3.5-5.2) g/dL Globulin 2.4 (1.3-4.6) g/dL Lipase 38 (13-60) U/L TSH (0.27-4.20) uIU/ mL Urine Color (Yellow) Urine Appearance (CLEAR) Urine pH (5-7) Ur Specific Gravit y (1.005-1.030) Urine Protein (Negative) Urine Glucose (UA) (Normal) Urine Ketones (Negative) Urine Blood (Negative) Urine Nitrate (Negative) Urine Bilirubin (Negative) Urine Urobilinogen (Negative) mg/dL Ur Leukocyte Patricia ase (Negative) Urine RBC (0-2) /hpf Urine WBC (0-5) /hpf Ur Squamous Epith Cells (0-5) /hpf Amorphous Sediment Urine Bacteria (NONE) /hpf SARS-CoV-2 Ag (Rap id) (Negative) 3 03/21/21 03/21/21 03/21/21 Range/Units 16:05 16:05 16:42 WBC (4.0-10.0) 10^3/ uL RBC (4.1-5.3) 10^6/u L Hgb (11.7-16.6) g/dL Hct (42.0-52.0) % MCV (80-94) fl MCH (28.0-34.0) pg MCHC (30.0-36.0) g/dL RDW (12.1-15.1) % Plt Count (130-400) 10^3/c mm MPV (7.4-10.4) fL Neut % (Auto) % Lymph % (Auto) % [place] % (Auto) % Eos % (Auto) % Baso % (Auto) % Neut # (Auto) (1.8-7.7) 10^3/u L Lymph # (Auto) (0.8-4.8) 10^3/u L [place] # (Auto) (0.2-0.9) 10^3/u L Eos # (Auto) (0.0-0.8) 10^3/u L Baso # (Auto) (0.0-0.1) 10^3/u L Nucleated RBC % (a uto) % Nucleated RBCs # /100WBC PT (12.1-14.9) SECO NDS INR (0.8-1.2) APTT (23.9-36.7) SECO NDS Sodium (136-145) mmol/L Potassium (3.5-5.1) mmol/L Chloride (98-107) mmol/L Carbon Dioxide (22-29) mmol/L Anion Gap (5-19) BUN (8-23) mg/dL Creatinine (0.7-1.2) mg/dL GFR Calculation Glucose (65-115) mg/dL POC Glucose 130 H (70-110) mg/dL Estimat Average Gl ucose 108 Hemoglobin A1c 5.4 (4.0-6.0) % Calculated Osmolal ity (285-295) mOsm/k g Calcium (8.5-10.5) mg/dL Magnesium 2.2 (1.7-2.3) mg/dL Total Bilirubin (0.15-1.2) mg/dL AST (0-40) U/L ALT (0-41) U/L Alkaline Phosphata se (40-130) IU/L Troponin T Gen 5 n g/L (0-15) ng/L Troponin T 120 Min [place] (0-15) ng/L Delta Troponin T (0-10) ABS# Troponin T Hi Sens 6Hr (0-15) ng/L Troponin T Hi Sens 6Hr Delta (0-12) ng/L NT-Pro-B Natriuret Pep 793 H (0-450) pg/mL Total Protein (6.6-8.7) g/dL Albumin (3.5-5.2) g/dL Globulin (1.3-4.6) g/dL Lipase (13-60) U/L TSH 3.26 (0.27-4.20) uIU/ mL Urine Color (Yellow) Urine Appearance (CLEAR) Urine pH (5-7) Ur Specific Gravit y (1.005-1.030) Urine Protein (Negative) Urine Glucose (UA) (Normal) Urine Ketones (Negative) Urine Blood (Negative) Urine Nitrate (Negative) Urine Bilirubin (Negative) Urine Urobilinogen (Negative) mg/dL Ur Leukocyte Patricia ase (Negative) Urine RBC (0-2) /hpf Urine WBC (0-5) /hpf Ur Squamous Epith Cells (0-5) /hpf Amorphous Sediment Urine Bacteria (NONE) /hpf SARS-CoV-2 Ag (Rap id) (Negative) 03/21/21 03/21/21 03/21/21 Range/Units 17:21 18:19 19:02 WBC (4.0-10.0) 10^3/ uL RBC (4.1-5.3) 10^6/u L Hgb (11.7-16.6) g/dL Hct (42.0-52.0) % MCV (80-94) fl MCH (28.0-34.0) pg MCHC (30.0-36.0) g/dL RDW (12.1-15.1) % Plt Count (130-400) 10^3/c mm MPV (7.4-10.4) fL Neut % (Auto) % Lymph % (Auto) % [place] % (Auto) % Eos % (Auto) % Baso % (Auto) % Neut # (Auto) (1.8-7.7) 10^3/u L Lymph # (Auto) (0.8-4.8) 10^3/u L [place] # (Auto) (0.2-0.9) 10^3/u L Eos # (Auto) (0.0-0.8) 10^3/u L Baso # (Auto) (0.0-0.1) 10^3/u L Nucleated RBC % (a uto) % Nucleated RBCs # /100WBC PT 13.70 (12.1-14.9) SECO NDS INR 1.02 (0.8-1.2) APTT 25.8 (23.9-36.7) SECO NDS Sodium (136-145) mmol/L Potassium (3.5-5.1) mmol/L Chloride (98-107) mmol/L Carbon Dioxide (22-29) mmol/L Anion Gap (5-19) BUN (8-23) mg/dL Creatinine (0.7-1.2) mg/dL GFR Calculation Glucose (65-115) mg/dL POC Glucose (70-110) mg/dL Estimat Average Gl ucose Hemoglobin A1c (4.0-6.0) % Calculated Osmolal ity (285-295) mOsm/k g Calcium (8.5-10.5) mg/dL Magnesium (1.7-2.3) mg/dL Total Bilirubin (0.15-1.2) mg/dL AST (0-40) U/L ALT (0-41) U/L Alkaline Phosphata se (40-130) IU/L Troponin T Gen 5 n g/L (0-15) ng/L Troponin T 120 Min [place] (0-15) ng/L Delta Troponin T (0-10) ABS# Troponin T Hi Sens 6Hr (0-15) ng/L Troponin T Hi Sens 6Hr Delta (0-12) ng/L NT-Pro-B Natriuret Pep (0-450) pg/mL Total Protein (6.6-8.7) g/dL Albumin (3.5-5.2) g/dL Globulin (1.3-4.6) g/dL Lipase (13-60) U/L TSH (0.27-4.20) uIU/ mL Urine Color Yellow (Yellow) Urine Appearance Sl hazy (CLEAR) Urine pH 6.5 (5-7) Ur Specific Gravit y 1.010 (1.005-1.030) Urine Protein 1+ H (Negative) Urine Glucose (UA) Norm (Normal) Urine Ketones Negative (Negative) Urine Blood 2+ H (Negative) Urine Nitrate Negative (Negative) Urine Bilirubin Neg (Negative) Urine Urobilinogen 1 H (Negative) mg/dL Ur Leukocyte Patricia ase Trace H (Negative) Urine RBC 0-4 H (0-2) /hpf Urine WBC 0-4 H (0-5) /hpf Ur Squamous Epith Cells 0-4 H (0-5) /hpf Amorphous Sediment Not Reportable Urine Bacteria Trace (NONE) /hpf SARS-CoV-2 Ag (Rap id) Negative (Negative) 03/21/21 03/22/21 03/22/21 Range/Units 19:42 01:40 01:40 WBC (4.0-10.0) 10^3/ uL RBC (4.1-5.3) 10^6/u L Hgb (11.7-16.6) g/dL Hct (42.0-52.0) % MCV (80-94) fl MCH (28.0-34.0) pg MCHC (30.0-36.0) g/dL RDW (12.1-15.1) % Plt Count (130-400) 10^3/c mm MPV (7.4-10.4) fL Neut % (Auto) % Lymph % (Auto) % [place] % (Auto) % Eos % (Auto) % Baso % (Auto) % Neut # (Auto) (1.8-7.7) 10^3/u L Lymph # (Auto) (0.8-4.8) 10^3/u L [place] # (Auto) (0.2-0.9) 10^3/u L Eos # (Auto) (0.0-0.8) 10^3/u L Baso # (Auto) (0.0-0.1) 10^3/u L Nucleated RBC % (a uto) % Nucleated RBCs # /100WBC PT (12.1-14.9) SECO NDS INR (0.8-1.2) APTT 76.9 H D (23.9-36.7) SECO NDS Sodium (136-145) mmol/L Potassium (3.5-5.1) mmol/L Chloride (98-107) mmol/L Carbon Dioxide (22-29) mmol/L Anion Gap (5-19) BUN (8-23) mg/dL Creatinine (0.7-1.2) mg/dL GFR Calculation Glucose (65-115) mg/dL POC Glucose (70-110) mg/dL Estimat Average Gl ucose Hemoglobin A1c (4.0-6.0) % Calculated Osmolal ity (285-295) mOsm/k g Calcium (8.5-10.5) mg/dL Magnesium (1.7-2.3) mg/dL Total Bilirubin (0.15-1.2) mg/dL AST (0-40) U/L ALT (0-41) U/L Alkaline Phosphata se (40-130) IU/L Troponin T Gen 5 n g/L (0-15) ng/L Troponin T 120 Min [place] 133.6 H (0-15) ng/L Delta Troponin T 7.60 (0-10) ABS# Troponin T Hi Sens 6Hr 435.3 H (0-15) ng/L Troponin T Hi Sens 6Hr Delta 309.3 H* (0-12) ng/L NT-Pro-B Natriuret Pep (0-450) pg/mL Total Protein (6.6-8.7) g/dL Albumin (3.5-5.2) g/dL Globulin (1.3-4.6) g/dL Lipase (13-60) U/L TSH (0.27-4.20) uIU/ mL Urine Color (Yellow) Urine Appearance (CLEAR) Urine pH (5-7) Ur Specific Gravit y (1.005-1.030) Urine Protein (Negative) Urine Glucose (UA) (Normal) Urine Ketones (Negative) Urine Blood (Negative) Urine Nitrate (Negative) Urine Bilirubin (Negative) Urine Urobilinogen (Negative) mg/dL Ur Leukocyte Patricia ase (Negative) Urine RBC (0-2) /hpf Urine WBC (0-5) /hpf Ur Squamous Epith Cells (0-5) /hpf Amorphous Sediment Urine Bacteria (NONE) /hpf SARS-CoV-2 Ag (Rap id) (Negative) 03/22/21 03/22/21 03/22/21 Range/Units 01:40 07:44 12:52 WBC 9.6 (4.0-10.0) 10^3/ uL RBC 3.52 L (4.1-5.3) 10^6/u L Hgb 11.4 L (11.7-16.6) g/dL Hct 35.6 L (42.0-52.0) % MCV 101.1 H (80-94) fl MCH 32.4 (28.0-34.0) pg MCHC 32.0 (30.0-36.0) g/dL RDW 13.8 (12.1-15.1) % Plt Count 276 (130-400) 10^3/c mm MPV 9.6 (7.4-10.4) fL Neut % (Auto) 76.5 % Lymph % (Auto) 10.3 % [place] % (Auto) 11.2 % Eos % (Auto) 1.1 % Baso % (Auto) 0.6 % Neut # (Auto) 7.34 (1.8-7.7) 10^3/u L Lymph # (Auto) 1.0 (0.8-4.8) 10^3/u L [place] # (Auto) 1.1 H (0.2-0.9) 10^3/u L Eos # (Auto) 0.1 (0.0-0.8) 10^3/u L Baso # (Auto) 0.1 (0.0-0.1) 10^3/u L Nucleated RBC % (a uto) 0 % Nucleated RBCs # 0.0 /100WBC PT (12.1-14.9) SECO NDS INR (0.8-1.2) APTT 78.6 H (23.9-36.7) SECO NDS Sodium (136-145) mmol/L Potassium (3.5-5.1) mmol/L Chloride (98-107) mmol/L Carbon Dioxide (22-29) mmol/L Anion Gap (5-19) BUN (8-23) mg/dL Creatinine (0.7-1.2) mg/dL GFR Calculation Glucose (65-115) mg/dL POC Glucose (70-110) mg/dL Estimat Average Gl ucose Hemoglobin A1c (4.0-6.0) % Calculated Osmolal ity (285-295) mOsm/k g Calcium (8.5-10.5) mg/dL Magnesium (1.7-2.3) mg/dL Total Bilirubin (0.15-1.2) mg/dL AST (0-40) U/L ALT (0-41) U/L Alkaline Phosphata se (40-130) IU/L Troponin T Gen 5 n g/L (0-15) ng/L Troponin T 120 Min [place] (0-15) ng/L Delta Troponin T (0-10) ABS# Troponin T Hi Sens 6Hr (0-15) ng/L Troponin T Hi Sens 6Hr Delta (0-12) ng/L NT-Pro-B Natriuret Pep 1421 H (0-450) pg/mL Total Protein (6.6-8.7) g/dL Albumin (3.5-5.2) g/dL Globulin (1.3-4.6) g/dL Lipase (13-60) U/L TSH (0.27-4.20) uIU/ mL Urine Color (Yellow) Urine Appearance (CLEAR) Urine pH (5-7) Ur Specific Gravit y (1.005-1.030) Urine Protein (Negative) Urine Glucose (UA) (Normal) Urine Ketones (Negative) Urine Blood (Negative) Urine Nitrate (Negative) Urine Bilirubin (Negative) Urine Urobilinogen (Negative) mg/dL Ur Leukocyte Patricia ase (Negative) Urine RBC (0-2) /hpf Urine WBC (0-5) /hpf Ur Squamous Epith Cells (0-5) /hpf Amorphous Sediment Urine Bacteria (NONE) /hpf SARS-CoV-2 Ag (Rap id) (Negative) 03/22/21 03/22/21 Range/Units 12:52 14:27 WBC (4.0-10.0) 10^3/ uL RBC (4.1-5.3) 10^6/u L Hgb (11.7-16.6) g/dL Hct (42.0-52.0) % MCV (80-94) fl MCH (28.0-34.0) pg MCHC (30.0-36.0) g/dL RDW (12.1-15.1) % Plt Count (130-400) 10^3/c mm MPV (7.4-10.4) fL Neut % (Auto) % Lymph % (Auto) % [place] % (Auto) % Eos % (Auto) % Baso % (Auto) % Neut # (Auto) (1.8-7.7) 10^3/u L Lymph # (Auto) (0.8-4.8) 10^3/u L [place] # (Auto) (0.2-0.9) 10^3/u L Eos # (Auto) (0.0-0.8) 10^3/u L Baso # (Auto) (0.0-0.1) 10^3/u L Nucleated RBC % (a uto) % Nucleated RBCs # /100WBC PT (12.1-14.9) SECO NDS INR (0.8-1.2) APTT 59.6 H (23.9-36.7) SECO NDS Sodium 139 (136-145) mmol/L Potassium 5.2 H (3.5-5.1) mmol/L Chloride 105 (98-107) mmol/L Carbon Dioxide 30 H (22-29) mmol/L Anion Gap 9.2 (5-19) BUN 18 (8-23) mg/dL Creatinine 1.1 (0.7-1.2) mg/dL GFR Calculation Not Reportable Glucose 88 (65-115) mg/dL POC Glucose (70-110) mg/dL Estimat Average Gl ucose Hemoglobin A1c (4.0-6.0) % Calculated Osmolal ity 289 (285-295) mOsm/k g Calcium 8.4 L (8.5-10.5) mg/dL Magnesium 2.1 (1.7-2.3) mg/dL Total Bilirubin 0.3 (0.15-1.2) mg/dL AST 58 H (0-40) U/L ALT 28 (0-41) U/L Alkaline Phosphata se 56 (40-130) IU/L Troponin T Gen 5 n g/L (0-15) ng/L Troponin T 120 Min [place] (0-15) ng/L Delta Troponin T (0-10) ABS# Troponin T Hi Sens 6Hr (0-15) ng/L Troponin T Hi Sens 6Hr Delta (0-12) ng/L NT-Pro-B Natriuret Pep 2386 H (0-450) pg/mL Total Protein 5.7 L (6.6-8.7) g/dL Albumin 3.3 L (3.5-5.2) g/dL Globulin 2.4 (1.3-4.6) g/dL Lipase (13-60) U/L TSH (0.27-4.20) uIU/ mL Urine Color (Yellow) Urine Appearance (CLEAR) Urine pH (5-7) Ur Specific Gravit y (1.005-1.030) Urine Protein (Negative) Urine Glucose (UA) (Normal) Urine Ketones (Negative) Urine Blood (Negative) Urine Nitrate (Negative) Urine Bilirubin (Negative) Urine Urobilinogen (Negative) mg/dL Ur Leukocyte Patricia ase (Negative) Urine RBC (0-2) /hpf Urine WBC (0-5) /hpf Ur Squamous Epith Cells (0-5) /hpf Amorphous Sediment Urine Bacteria (NONE) /hpf SARS-CoV-2 Ag (Rap id) (Negative) Imaging Data^: Other Imaging: Radiologist's impression: [email or web address], [place] [id number] Scan ReportSigned Patient: Jorge Odom #: [id number]: [id number]#:[id number]/Sex: 80 / MADM Date: 03/21/21Loc: ERRoom/Bed:Attending Dr: Ordering Provider/Ordering MD: Aly Mejía MD Date of Service: 03/21/21 Procedure(s): CT head wo con* [id number] Accession Number(s): [id number] Report Number: [id number] PROCEDURE INFORMATION: Exam: CT Head Without Contrast Exam date and time: 03/21/2021 4:37 PM Age: 80 years old Clinical indication: Syncope and collapse; Additional info: Rule out bran injury TECHNIQUE: Imaging protocol: Computed tomography of the head without contrast. Radiation optimization: All CT scans at this facility use at least one of these dose optimization techniques: automated exposure control; mA and/or kV adjustment per patient size (includes targeted exams where dose is matched to clinical indication); or iterative reconstruction. COMPARISON: MR head wo/w con [id number] 03/06/2021 8:55 AM RADIATION DOSE METRICS: Total DLP (mGy-cm): 920.8 FINDINGS: Brain: Normal. No hemorrhage. Unremarkable white matter. No mass effect. Cerebral ventricles: No ventriculomegaly. Paranasal sinuses: Visualized sinuses are unremarkable. No fluid levels. Mastoid air cells: Visualized mastoid air cells are well aerated. Bones/joints: Unremarkable. No acute fracture. Soft tissues: Unremarkable. CT/CT head wo con* [id number] IMPRESSION: No acute intracranial abnormality. Radiation Dose CTDIVOL = (mGy): DLP = 920.8 (mGy-cm) Dictated By:Jasen Cervantes MDSigned By:Jasen Cervantes MDSigned Date/Time:03/21/21 1712DD/ [address].[place], [place] [address]LLfs ReportSigned Patient: Jorge Odom #: [id number]: 1940Acct#:[id number]/Sex: 80 / MADM Date: 03/21/21Loc: ERRoom/Bed:Attending Dr: Ordering Provider/Ordering MD: Aly Mejía MD Date of Service: 03/21/21 Procedure(s): XR elbow RT 2V [id number] Accession Number(s): [id number] Report Number: [id number] PROCEDURE INFORMATION: Exam: XR Right Elbow Exam date and time: 03/21/2021 4:37 PM Age: 80 years old Clinical indication: Patient HX: Fall, right elbow pain/abrasion; Additional info: Rule out injury TECHNIQUE: Imaging protocol: XR Right elbow. Views: 1 or 2 views. COMPARISON: No relevant prior studies available. FINDINGS: Bones/joints: Normal. Soft tissues: Normal. XR/XR elbow RT 2V [id number] IMPRESSION: No acute findings. Dictated By:Jasen Cervantes MDSigned By:Jasen Cervantes MDSigned Date/Time:03/21/21 17 34DD/ 1733 Discharge Plan Discharge Patient Disposition: Admitted As Inpatient Admit Provider: Andriy Reich Clinical Impression: Syncope, Elevated troponin Condition: Stable Coding Level of Care Code ED [employer] Agent for Jesica Johnson
[2021-03-21 16:46] LABS: Glucose Point of Care 130 mg/dL (70-110)
[2021-03-21 16:52] LABS: Basophils # 0.1 10^3/uL (0.0-0.1); Basophils % 0.7 %; Eosinophils # 0.1 10^3/uL (0.0-0.8); Eosinophils % 1.1 %; Hematocrit 38.8 % (42.0-52.0); Hemoglobin 12.6 g/dL (11.7-16.6); Lymphocytes # 1.7 10^3/uL (0.8-4.8); Lymphocytes % 19.4 %; Mean Corpuscular HGB Conc 32.5 g/dL (30.0-36.0); Mean Corpuscular Hemoglobin 32.1 pg (28.0-34.0); Mean Corpuscular Volume 98.7 fl (80-94); Mean Platelet Volume 9.7 fL (7.4-10.4); Monocytes # 0.8 10^3/uL (0.2-0.9); Monocytes % 9.6 %; Neutrophils # 6.02 10^3/uL (1.8-7.7); Neutrophils % 68.5 %; Nucleated Red Blood Cells % 0 %; Platelet Count 319 10^3/cmm (130-400); Red Blood Count 3.93 10^6/uL (4.1-5.3); Red Cell Distribution Width 13.5 % (12.1-15.1); White Blood Count 8.8 10^3/uL (4.0-10.0)
--- NOTE | 2021-03-21 17:10 | PC.PHAR ---
PT AND PTS VERIFIED THE PTS MEDICATIONS
--- NOTE | 2021-03-21 17:13 | PC.NURSE ---
PATIENT COMPLAINS OF RIGHT ELBOW PAIN, RATING IT AN 8/10.
[2021-03-21 17:45] LABS: Alanine Aminotransferase 23 U/L (0-41); Alkaline Phosphatase 71 IU/L (40-130); Anion Gap 14.8 (5-19); Aspartate Amino Transferase 33 U/L (0-40); Blood Urea Nitrogen 17 mg/dL (8-23); Calcium 8.8 mg/dL (8.5-10.5); Carbon Dioxide 26 mmol/L (22-29); Chloride 99 mmol/L (98-107); Globulin 2.4 g/dL (1.3-4.6); Glucose 142 mg/dL (65-115); Lipase 38 U/L (13-60); Osmolality Calculated 284 mOsm/kg (285-295); Potassium 4.8 mmol/L (3.5-5.1); Sodium 135 mmol/L (136-145); Total Bilirubin 0.4 mg/dL (0.15-1.2); Total Protein 6.4 g/dL (6.6-8.7)
[2021-03-21 17:47] LABS: Troponin T (5th) Once 126 ng/L (0-15)
[2021-03-21 18:00] LABS: Add Urine Microscopic? YES; Bilirubin Urine Neg (Negative); Blood Urine 2+ (Negative); Glucose Urine UA Norm (Normal); Ketones Urine Negative (Negative); Leukocyte Esterase Urine Trace (Negative); Nitrate Urine Negative (Negative); Protein Urine 1+ (Negative); Urine Appearance SL Hazy (CLEAR); Urine Color Yellow (Yellow); Urobilinogen Urine 1 mg/dL (Negative); pH Urine 6.5 (5-7)
[2021-03-21 18:01] LABS: Add Urine Culture? No; Bacteria Urine TRACE /hpf; RBC Urine 0-4 /hpf (0-2); Squamous Epithelial Cell Urine 0-4 /hpf (0-5); WBC Urine 0-4 /hpf (0-5)
[2021-03-21] MEDS: aspirin 325 mg Tablet PO (18:08)
[2021-03-21] MEDS: acetaminophen 500 mg Tablet PO (18:08)
[2021-03-21] MEDS: tetanus-dipt-pertussis 0.5 mL SDV IM (18:09)
--- NOTE | 2021-03-21 18:48 | PM.HP ---
Providers/Chief Complaint Primary Care Provider: Sulma Alcantara MD Chief Complaint: SEIZURE LIKE ACTIVITY History of Present Illness Jorge Odom is a 80 year old male with a past medical history of COPD 2 L oxygen dependent, smoker, BPH, hyperlipidemia, left foot drop, left ICA complete stenosis, who presents [facility] for seizure-like episode. Patient tells me that he was in the regular state of health, at 3 PM he was playing a crossword puzzle, his stepped out to fold the laundry, suddenly she heard a thump, and he was found on the floor on his side, shaking all over, he was according to her nonresponsive, no facial droop, no slurring of speech, roughly lasting about 3 minutes, after 3 minutes he was a bit dazed and confused, he is weak in bilateral lower extremities, but they were able to get him up to a chair, but he was still weak on and days, it took about 20 minutes for the EMS to,, and then he was more responsive, in the emergency room is alert and oriented x3, his only complaint is chronic left foot drop for which Dr. Infante has been doing an outpatient work-up, no history of seizures, no history of dehydration, does have evidence of UTI, does have an enlarged prostate, denies drug use, no alcohol use, no history of thyroid problems. He was also found to have elevated troponins of 114, with nonspecific ST-T wave changes, no complaints of chest pain, no cardiovascular history, he does provide a vague history of passing out in the past, but no work-up was completed Review of Systems Const: Denies: fever(s), chills, fatigue or malaise Eyes: Denies: change in vision or blurry vision ENMT: Denies: nasal congestion Card: Denies: chest pain, palpitations, irregular heart rhythm, edema, lightheadedness or syncope Resp: Denies: dyspnea, productive cough, non-productive cough or wheezing GI: Denies: abdominal pain, nausea, vomiting, hematemesis, diarrhea, constipation, hematochezia or melena : Denies: flank pain, difficulty urinating, dysuria or urinary frequency Musc: Denies: neck pain or back pain Skin/Breast: Denies: rash Neuro: Denies: headache(s), dizziness or vertigo Psych: Reports: anxiety; Denies: depression Endo: Denies: polyuria or polydipsia Medications/Allergies Home Medications Medication Instructions Recorded Confirmed Last Taken Type acetaminophen 500 mg tablet 1,000 mg PO Q4H PRN 08/18/19 03/21/21 11/20/20 History albuterol sulfate 90 mcg/actuation 2 puff INHALATION Q6H PRN 08/18/19 03/21/21 07/27/20 History aerosol inhaler fluticasone fur. 100 mcg-umeclid 1 inh INHALATION QAM 08/18/19 03/21/21 03/21/21 10:00 History 62.5 mcg-vilant 25 mcg inhalat.powder meclizine 25 mg tablet 25 mg PO Q6H PRN tab 08/18/19 03/21/21 11/20/20 History tamsulosin 0.4 mg capsule 0.4 mg PO BID #180 cap 06/29/20 03/21/21 03/21/21 10:00 Rx atorvastatin [Lipitor] 20 mg PO QAM 07/26/20 03/21/21 03/21/21 10:00 History escitalopram oxalate 10 mg tablet 5 mg PO QAM tab 01/29/21 03/21/21 03/21/21 10:00 History ascorbic acid (vitamin C) [Vitamin 1,000 mg PO QPM 03/21/21 03/21/21 03/20/21 History C] multivitamin 1 tab PO QAM 03/21/21 03/21/21 03/21/21 10:00 History Allergies Allergy/AdvReac Type Severity Reaction Status Date / Time No Known Allergies Allergy Verified 03/21/21 17:10 PFSH Acute PFSH: Medical History (Updated 03/21/21 @ 18:58 by Andriy Reich MD) Benign prostatic hyperplasia with lower urinary tract symptoms Chronic prostatitis COPD (chronic obstructive pulmonary disease) Elevated PSA Surgical History History of amputation of toe History of appendectomy History of inguinal hernia repair right History of tonsillectomy Status post left inguinal hernia repair Status post right inguinal hernia repair (11/21/20) Recurrent Family History Mother , at age 84-leukemia No problems noted. Father , at age 64--heart attack No problems noted. Social History Smoking and tobacco status: current every day smoker cigarettes Packs smoked per day: 1 Quit status (tobacco): has tried quititng Alcohol intake: never Marital status: Current occupational status: employed History of recent travel: No Vitals/I&O/Wt Last Vital Signs Temp 97.9 F 03/21/21 16:25 Pulse 96 03/21/21 17:04 Resp 16 03/21/21 16:25 BP 128/73 03/21/21 17:04 Pulse Ox 100 03/21/21 17:04 Weight last 48 hrs Weight 61.235 kg Physical Exam Const: COMMON NORMALS: no acute distress and patient oriented x3 Eye: COMMON NORMALS: Equal, round and reactive pupils present and EOMs intact bilaterally GENERAL EYE: appearance normal, both eyes and all related structures PUPIL: Yes Equal, round and reactive pupils present Neck/C-Spine: COMMON NORMALS: full ROM Lymph: LYMPHATIC: no lymphadenopathy noted Resp: COMMON NORMALS: normal respiratory effort, No retractions, No use of accessory muscles and clear to auscultation bilaterally AUSCULTATION: clear to auscultation bilaterally Cardio: COMMON NORMALS: regular rate, regular rhythm, S1 normal heart sound present, S2 normal heart sound present, No gallops present (Cardio), No clicks present (Cardio) and No murmurs present (Cardio) RATE: regular rate RHYTHM: regular rhythm HEART SOUNDS: S1 normal heart sound present and S2 normal heart sound present GI: COMMON NORMALS: Normal to inspection, nondistended, normoactive bowel sounds present, Soft to palpation, non-tender and No hepatosplenomegaly present PALPATION: Yes Soft to palpation and Yes No hepatosplenomegaly present Extremity: COMMON NORMALS: normal to inspection, full ROM and no pedal edema Neuro: COMMON NORMALS: patient oriented x3, CN's II-XII intact bilaterally, moves all extremities and no focal motor deficits OTHER: Some degree of a left foot drop Psych: COMMON NORMALS: mental status grossly normal, Normal thought process present and cooperative THOUGHT PROCESS: Normal thought process present Data : 03/21/21 16:05 03/21/21 16:05 A&P Assessment and plan (1) NSTEMI (non-ST elevated myocardial infarction): Admit to CSU -Serial troponins, serial EKGs, telemetry monitoring -TSH, mag -Cardiac echo -Aspirin, statin, Coreg, heparin drip -Cardiology on consult -Full code -Heparin for DVT prophylaxis Status: Acute (2) Seizure: -No evidence of electrolyte abnormalities's, sounds like a true seizure -Start Keppra 500 twice daily Status: Acute (3) COPD (chronic obstructive pulmonary disease): Status: Acute (4) Internal carotid artery stenosis: -Left ICA stenosis Chronicity unknown, no focal neurologic deficits, does have chronic left foot drop, unrelated Status: Acute Additional A&P Information UTI, continue Rocephin COPD, continue inhalers Attestations Medical Necessity Statement*: Patient course hospitalization, inpatient, greater than 2 midnights, or NSTEMI, seizure Coding Level of Care Code Acute Vp Information Technology for [facility] Fwd Diagnoses NSTEMI (non-ST elevated myocardial infarction) I21.4 Seizure R56.9 COPD (chronic obstructive pulmonary disease) J44.9 Internal carotid artery stenosis I65.29
[2021-03-21 19:12] LABS: Magnesium 2.2 mg/dL (1.7-2.3); NT Pro B Type Natriuretic Pept 793 pg/mL (0-450); Thyroid Stimulating Hormone 3.26 uIU/mL (0.27-4.20)
[2021-03-21 19:34] LABS: INR 1.02 (0.8-1.2)
[2021-03-21 19:35] LABS: Partial Thromboplastin Time 25.8 SECONDS (23.9-36.7)
[2021-03-21] MEDS: heparin 5,000 unit/mL INJ 1 mL 4000 UNIT IVP (20:00)
[2021-03-21] MEDS: heparin drip 25,000 UNIT/500 ML PREMIX 17.15 UNIT IV (20:10)
--- NOTE | 2021-03-21 20:33 | PC.NURSE ---
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
[2021-03-21 20:54] LABS: Troponin 5 2HR 133.6 ng/L (0-15)
--- NOTE | 2021-03-21 20:55 | ECG_ITS ---
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 Measurements Intervals [place] Rate: 83 P: 85 TN: 155 QRS: -78 QRSD: 146 T: -23 QT: 368 QTc: 434 Interpretive Statements SINUS RHYTHM LEFT AXIS DEVIATION [QRS AXIS < -30] RIGHT BUNDLE BRANCH BLOCK [120+ ms QRS DURATION, UPRIGHT V1, 40+ ms S IN I/aVL/V4/V5/V6] Compared to ECG 03/21/2021 16:36:07 No significant changes Electronically Signed On 03-22-2021 20:41:45 CDT by Jonathan Hill M.D. [email or web address]/[id number] f
--- NOTE | 2021-03-21 20:56 | ECG_ITS ---
[facility] Test Date: 2021-03-21 Pat Name: Jorge Odom Department: Room: Gender: Male Legal Operations Manager: : 1940 Requested By: Aly Mejía Order Number: [id number] Hortencia MD: Jonathan Hill M.D. Measurements Intervals [place] Rate: 83 P: 85 NE: 155 QRS: -78 QRSD: 146 T: -23 QT: 368 QTc: 434 Interpretive Statements SINUS RHYTHM LEFT AXIS DEVIATION [QRS AXIS < -30] RIGHT BUNDLE BRANCH BLOCK [120+ ms QRS DURATION, UPRIGHT V1, 40+ ms S IN I/aVL/V4/V5/V6] Compared to ECG 03/21/2021 16:36:07 No significant changes Electronically Signed On 03-22-2021 20:43:01 CDT by Jonathan Hill M.D. [email or web address]/store/[id number] f
[2021-03-21 21:24] LABS: SARS Covid-2 Antigen Negative (Negative)
[2021-03-21 22:20] LABS: Estmated Average Glucose 108; Hemoglobin A1C 5.4 % (4.0-6.0)
--- NOTE | 2021-03-21 22:50 | PC.NURSE ---
patient was assisted with ambulation to restroom. Patient was then assisted into the clean clothes his brought to sleep in. Dr. Mejía approved food until midnight. patient sitting up in bed eating a sack lunch with milk. denies any needs at this time
--- NOTE | 2021-03-21 23:28 | PC.NURSE ---
patient done eating. Placed in wheelchair and patient and patient belongings moved to room 6 for a hospital bed. reports received by Kymberly MARTINES
[2021-03-22] VITALS (19 sets, daily range): BP systolic 100–142; BP diastolic 47–72; PULSE 66–87; RESP 16–25; TEMP 36.6–36.7; O2SAT 90–100
--- NOTE | 2021-03-22 00:55 | ECG_ITS ---
[facility] Test Date: 2021-03-21 Pat Name: Jorge Odom Department: Room: Gender: Male Cupola Man: : 1940 Requested By: Aly Mejía Order Number: [id number] Hortencia MD: Jonathan Hill M.D. Measurements Intervals [place] Rate: 89 P: 80 DC: 157 QRS: -84 QRSD: 138 T: -21 QT: 369 QTc: 451 Interpretive Statements SINUS RHYTHM WITH OCCASIONAL SUPRAVENTRICULAR PREMATURE COMPLEXES LEFT AXIS DEVIATION [QRS AXIS < -30] RIGHT BUNDLE BRANCH BLOCK [120+ ms QRS DURATION, UPRIGHT V1, 40+ ms S IN I/aVL/V4/V5/V6] Compared to ECG 11/21/2020 09:03:22 No significant changes Electronically Signed On 03-22-2021 20:43:41 CDT by Jonathan Hill M.D. [email or web address] [email or web address] Energymccullough-[facility].[employer] - Financial Reconciliation/store/NU/[id number].pd f
--- NOTE | 2021-03-22 00:56 | ECG_ITS ---
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 Measurements Intervals [place] Rate: 89 P: 80 VT: 157 QRS: -84 QRSD: 138 T: -21 QT: 369 QTc: 451 Interpretive Statements SINUS RHYTHM WITH OCCASIONAL SUPRAVENTRICULAR PREMATURE COMPLEXES LEFT AXIS DEVIATION [QRS AXIS < -30] RIGHT BUNDLE BRANCH BLOCK [120+ ms QRS DURATION, UPRIGHT V1, 40+ ms S IN I/aVL/V4/V5/V6] Compared to ECG 11/21/2020 09:03:22 No significant changes Electronically Signed On 03-22-2021 20:43:52 CDT by Jonathan Hill M.D. [email or web address] Scrap Metal Recyclingochsner rush healthObjectFXcleveland [facility].[employer]/store/NU/[id number]/[id number] f
[2021-03-22 02:12] LABS: Troponin 5 6HR 435.3 ng/L (0-15); Troponin 5 6HR Delta 309.3 ng/L (0-12)
[2021-03-22 02:21] LABS: Partial Thromboplastin Time 76.9 SECONDS (23.9-36.7)
--- NOTE | 2021-03-22 07:52 | USCV_ITS ---
Jorge Odom Age: 80 Gender: M : 1940 Exam Date: 03/22/2021 09:48 Ordering Phys: Andriy Reich MD Technologist: Debbie Meredith Exam Location: [facility] [place] Indication: NSTEMI BP: 134 / 66 HR: 69 Rhythm: Sinus Technical Quality: Technically difficult study MEASUREMENTS (Male / Female) Normal Values 2D ECHO LV Diastolic Diameter PLAX 3.3 cm 4.2 - 5.9 / 3.9 - 5.3 cm LV Systolic Diameter PLAX 2.3 cm IVS Diastolic Thickness 1.3 cm 0.6 - 1.0 / 0.6 - 0.9 cm IVS Systolic Thickness 1.5 cm LVPW Diastolic Thickness 1.0 cm 0.6 - 1.0 / 0.6 - 0.9 cm LVPW Systolic Thickness 1.3 cm RV Chamber Size 3.3 cm LVOT Diameter 2.0 cm LV Ejection Fraction 2D Teich 58.8 % LV Ejection Fraction MOD 2C 56.1 % LV Ejection Fraction 2C AL 59.0 % LA Diameter 2.5 cm LA Width 2.9 cm LA Height 2.9 cm RA Width 3.0 cm RA Height 3.1 cm Aorta at Sinotubular Diameter 2.6 cm M-MODE LV Diastolic Diameter MM 3.5 cm 4.2 - 5.9 / 3.9 - 5.3 cm LV Systolic Diameter MM 2.4 cm LV Ejection Fraction MM Teich 59.6 % IVS Diastolic Thickness MM 1.7 cm 0.6 - 1.0 / 0.6 - 0.9 cm IVS Systolic Thickness MM 1.5 cm LVPW Diastolic Thickness MM 1.6 cm 0.6 - 1.0 / 0.6 - 0.9 cm LVPW Systolic Thickness MM 1.7 cm DOPPLER AV Peak Velocity 102.0 cm/s LVOT Peak Velocity 83.0 cm/s AV Area Cont Eq vti 3.2 cm squared AV Area Cont Eq pk 2.5 cm squared MV Area PHT 3.2 cm squared Mitral E to A Ratio 0.7 MV E' Velocity 37.0 cm/s Mitral E to MV E' Ratio 8.7 Mitral E to LV E' Lateral Ratio 9.8 Mitral E to LV E' Septal Ratio 8.0 TR Peak Velocity 214.3 cm/s TR Peak Gradient 18.4 mmHg TV Peak E Velocity 41.0 cm/s Right Atrial Pressure 3.0 mmHg Pulmonary Artery Systolic Pressu 21.4 mmHg PV Peak Velocity 94.0 cm/s RV Acceleration Time 0.1 s RV Ejection Time 0.3 s RV AcT/ET 0.4 FINDINGS Left Ventricle Normal left ventricular size. LV systolic function is normal with EF of 50-55%. Septal motion is consistent with conduction abnormalities. Grade 1 diastolic dysfunction Right Ventricle The right ventricle is dilated and mildly hypokinetic Right Atrium The right atrium is normal in size. Left Atrium The left atrium is normal in size. Mitral Valve Mild to moderate mitral annular calcification is noted without significant stenosis or prolapse. There is mild mitral regurgitation. Aortic Valve Aotic valve is thickened and calcified without significant stenosis. There is no aortic regurgitation. Tricuspid Valve Structurally normal tricuspid valve without significant stenosis. Mild tricuspid regurgitation. Pulmonary artery systolic pressure is normal. Pulmonic Valve Structurally normal pulmonic valve without significant stenosis. There is no pulmonic regurgitation. Pericardium Normal pericardium without effusion. Aorta Normal ascending aorta dimension. CONCLUSIONS Technically limited quality study because of poor ultrasonic windows. LV systolic function is normal with EF of 50 to 55%. Septal motion is consistent with conduction abnormalities. Grade 1 diastolic dysfunction. Right ventricle is dilated and mildly hypokinetic. Mild to moderate mitral annular calcification is seen. Mild mitral regurgitation Aortic valve is thickened and calcified Mild tricuspid regurgitation No comparison studies are available Jonathan Hill MD (Electronically Signed) Final Date: 23 March 2021 09:48 S
[2021-03-22] MEDS: aspirin 81 mg EC Tablet PO (08:07)
[2021-03-22] MEDS: levETIRAcetam 500 mg Tablet PO ×2 (08:07→18:32)
[2021-03-22] MEDS: atorvastatin 40 mg Tablet 20 MG PO (08:07)
[2021-03-22] MEDS: tamsulosin 0.4 mg Capsule PO ×2 (08:07→18:32)
[2021-03-22] MEDS: famotidine 20 mg Tablet PO ×2 (08:07→18:32)
[2021-03-22 08:11] LABS: Partial Thromboplastin Time 78.6 SECONDS (23.9-36.7)
[2021-03-22 08:31] LABS: NT Pro B Type Natriuretic Pept 1421 pg/mL (0-450)
[2021-03-22] MEDS: cefTRIAXone 1,000 MG in sodium chloride 0.9% (plus) 50 ML 100 MG IV (08:45)
[2021-03-22] MEDS: escitalopram 10 mg Tablet 5 MG PO (09:04)
[2021-03-22] MEDS: carvedilol 3.125 mg Tablet PO ×2 (09:04→18:33)
--- NOTE | 2021-03-22 09:20 | USCV_ITS ---
Jorge Odom Age: 80 Gender: M : 1940 Exam Date: 03/22/2021 09:48 Ordering Phys: Andriy Reich MD Technologist: Aquilino Curry Exam Location: [facility] [place] Indication: SWELLING HISTORY: Lower extremity swelling. PROCEDURES: Venous duplex imaging was performed in bilateral lower extremities. The following venous structures were evaluated: common femoral vein, profunda vein, proximal portion of the greater saphenous vein, superficial femoral vein, and the popliteal vein. In addition, the posterior tibial and peroneal trunk were evaluated. FINDINGS: Normal 2-D Doppler and augmentation and compressibility throughout the lower extremity venous structures. Additional imaging through the proximal calf veins also reveals no thrombus. Limited evaluation of the greater saphenous vein is patent with no thrombus.. CONCLUSIONS No evidence of right lower extremity DVT. No evidence of left lower extremity DVT. Lavon Larsen MD (Electronically Signed) Final Date: 22 March 2021 17:04 S
--- NOTE | 2021-03-22 09:20 | CT_ITS ---
WS: [id number] CTA OF THE CHEST WITH PULMONARY EMBOLISM PROTOCOL TECHNIQUE: High-resolution contrast enhanced CTA of the chest with coronal and sagittal reformatted i mages with pulmonary embolism protocol. MIP images are also reviewed. CLINICAL INFORMATION: right heart strain, elevated troponin COMPARISON: CT chest June 2020 DLP: 532.[address] scans at [facility] use at least one of these dose optimization techniques: automated e xposure control; mA and/or kV adjustment per patient size (includes targeted exams where dose is matc hed to clinical indication); or iterative reconstruction. FINDINGS: Proximal main pulmonary arteries are normal. Normal segmental and subsegmental pulmonary arteries. No evidence of pulmonary embolus. No suspicious filling defects. Moderate aortic calcification. No mediastinal or hilar lymphadenopathy. Advanced chronic emphysematou s changes. No acute pulmonary infiltrates. No focal pneumonia or pleural fluid. Stable 6 mm pulmonary nodule right upper lobe. Additional stable 11 mm opacity right lower lobe. Additional noncalcified p ulmonary nodule left lower lobe subpleural in location and measuring 7 mm is unchanged. Additional n odule right lower lobe slightly more prominent today measuring 5 mm. Hypertrophic changes thoracic spine. Adrenal glands are normal. Small bilateral renal cysts. Small e sophageal hiatal hernia. Small pericardial effusion. Ectatic upper abdominal aorta measuring 2.5 x 3. 0 CM. Slightly ectatic aortic arch measuring 3.[address]/CT angio chest PE protcl [id number] IMPRESSION: 1. Proximal main pulmonary arteries are normal. No evidence of pulmonary embol us. 2. Moderate chronic emphysematous changes. No acute pulmonary infiltrates. 3. A few subcentimeter pulmonary nodules and semisolid pulmonary opacities lar gest measuring 11 mm in right lower lobe are unchanged from previous. Slightly more prominent right lower lobe nodule measuring 5 mm. Recommend 6 month follow -up chest CT. 4. No mediastinal or hilar lymphadenopathy. 5. Slightly ectatic upper abdominal aorta measuring 2.5 x 3.0 cm unchanged. Sl ightly ectatic aortic arch measuring 3.4 cm unchanged. 6. Partially visualized small bilateral renal cysts.
[2021-03-22] MEDS: iodixanol 320 mg/mL 100mL Btl IV (10:18)
--- NOTE | 2021-03-22 12:20 | P.PN_ITS ---
Subjective Subjective: Interval history: Patient was seen this morning, he is currently symptom-free, no chest pain, no shortness of breath, no nausea, no vomiting, no recurrent seizure-like episodes Vitals/I&O/Wt Last Vital Signs Temp 97.8 F 03/22/21 11:00 Pulse 73 03/22/21 11:00 Resp 18 03/22/21 11:00 BP 101/64 03/22/21 11:00 Pulse Ox 100 03/22/21 11:00 03/21/21 03/22/21 03/22/21 22:59 06:59 14:59 Intake Total 111.475 / 111.475 90.744 / 90.744 Balance 111.475 / 111.475 90.744 / 90.744 Weight last 48 hrs Weight 61.235 kg Physical Exam Const: COMMON NORMALS: no acute distress and patient oriented x3 Resp: COMMON NORMALS: normal respiratory effort, No retractions, No use of accessory muscles and clear to auscultation bilaterally AUSCULTATION: clear to auscultation bilaterally Cardio: COMMON NORMALS: regular rate, regular rhythm, S1 normal heart sound present and S2 normal heart sound present RATE: regular rate RHYTHM: regular rhythm HEART SOUNDS: S1 normal heart sound present and S2 normal heart sound present GI: COMMON NORMALS: Normal to inspection, nondistended, normoactive bowel sounds present, Soft to palpation and non-tender PALPATION: Yes Soft to palpation Extremity: COMMON NORMALS: no pedal edema Neuro: COMMON NORMALS: patient oriented x3 Psych: COMMON NORMALS: mental status grossly normal Data : 03/21/21 16:05 03/21/21 16:05 A&P Assessment and plan (1) NSTEMI (non-ST elevated myocardial infarction): Admit to CSU -Baseline troponin 126, 6-hour 309, delta 435, BNP 1421 -EKG no acute ST-T wave changes -TSH WNL, mag WNL -ct angio: 1. Proximal main pulmonary arteries are normal. No evidence of pulmonary embolus. 2. Moderate chronic emphysematous changes. No acute pulmonary infiltrates. 3. A few subcentimeter pulmonary nodules and semisolid pulmonary opacities largest measuring 11 mm in right lower lobe are unchanged from previous. Slightly more prominent right lower lobe nodule measuring 5 mm. Recommend 6 month follow-up chest CT. 4. No mediastinal or hilar lymphadenopathy. 5. Slightly ectatic upper abdominal aorta measuring 2.5 x 3.0 cm unchanged. Sli ghtly ectatic aortic arch measuring 3.4 cm unchanged. 6. Partially visualized small bilateral renal cysts plan Plan: -echo pending -Aspirin, statin, Coreg -heparin drip, will require 48 hours of anticoagulation -Likely will require an outpatient stress test, no urgent need for cardiac catheterization -Cardiology on consult -Full code -Heparin for DVT prophylaxis Status: Acute (2) Seizure: -No evidence of electrolyte abnormalities's, sounds like a true seizure -Start Keppra 500 twice daily Status: Acute (3) COPD (chronic obstructive pulmonary disease): Status: Acute (4) Internal carotid artery stenosis: -Left ICA stenosis Chronicity unknown, no focal neurologic deficits, does have chronic left foot drop, unrelated Status: Acute Additional A&P Information UTI, continue Rocephin COPD, continue inhalers Attestations Medical Necessity Statement*: Patient requires hospitalization for NSTEMI Coding Level of Care Code Acute 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
[2021-03-22 13:02] LABS: Basophils # 0.1 10^3/uL (0.0-0.1); Basophils % 0.6 %; Eosinophils # 0.1 10^3/uL (0.0-0.8); Eosinophils % 1.1 %; Hematocrit 35.6 % (42.0-52.0); Hemoglobin 11.4 g/dL (11.7-16.6); Lymphocytes % 10.3 %; Mean Corpuscular Hemoglobin 32.4 pg (28.0-34.0); Mean Corpuscular Volume 101.1 fl (80-94); Mean Platelet Volume 9.6 fL (7.4-10.4); Monocytes # 1.1 10^3/uL (0.2-0.9); Monocytes % 11.2 %; Neutrophils # 7.34 10^3/uL (1.8-7.7); Neutrophils % 76.5 %; Nucleated Red Blood Cells % 0 %; Platelet Count 276 10^3/cmm (130-400); Red Blood Count 3.52 10^6/uL (4.1-5.3); Red Cell Distribution Width 13.8 % (12.1-15.1); White Blood Count 9.6 10^3/uL (4.0-10.0)
[2021-03-22 13:23] LABS: Alanine Aminotransferase 28 U/L (0-41); Albumin Level 3.3 g/dL (3.5-5.2); Alkaline Phosphatase 56 IU/L (40-130); Anion Gap 9.2 (5-19); Aspartate Amino Transferase 58 U/L (0-40); Blood Urea Nitrogen 18 mg/dL (8-23); Calcium 8.4 mg/dL (8.5-10.5); Carbon Dioxide 30 mmol/L (22-29); Chloride 105 mmol/L (98-107); Globulin 2.4 g/dL (1.3-4.6); Glucose 88 mg/dL (65-115); Magnesium 2.1 mg/dL (1.7-2.3); NT Pro B Type Natriuretic Pept 2386 pg/mL (0-450); Osmolality Calculated 289 mOsm/kg (285-295); Potassium 5.2 mmol/L (3.5-5.1); Sodium 139 mmol/L (136-145); Total Bilirubin 0.3 mg/dL (0.15-1.2); Total Protein 5.7 g/dL (6.6-8.7)
[2021-03-22] MEDS: sodium chloride 0.9% 1,000 ML 50 ML IV (13:43)
--- NOTE | 2021-03-22 14:28 | PM.CONSULT ---
Providers/Reason For Consult Consulting Physician/Specialty*: Jonathan Hill MD/Cardiology Reason for Consult*: Troponin elevation Requesting Physician: Dr Reich Attending Physician: Andriy Reich MD Primary Care Provider: Sulma Alcantara MD History of Present Illness History of Present Illness Jorge Odom is a 80 year old male past medical history of COPD 2 L oxygen dependent, smoker, BPH, hyperlipidemia, left foot drop, left ICA complete stenosis, who presented to hospital with syncope and seizure. Says he was sitting on the table yesterday afternoon and fell down. The next thing he remembers is that his family was trying to help him get up. Denies any chest pain or pressure . He is chronically on oxygen. Episode lasted for approximately 3 minutes. In the ER he had normal sinus rhythm with right bundle branch block. Cardiology was consulted as initial troponin was elevated and at 6 hours trended up significantly. Review of Systems Const: Denies: fever(s), chills, fatigue or malaise Eyes: Denies: change in vision or blurry vision ENMT: Denies: nasal congestion Card: Denies: chest pain, palpitations, irregular heart rhythm, edema, lightheadedness or syncope Resp: Denies: dyspnea, productive cough, non-productive cough or wheezing GI: Denies: abdominal pain, nausea, vomiting, hematemesis, diarrhea, constipation, hematochezia or melena : Denies: flank pain, difficulty urinating, dysuria or urinary frequency Musc: Denies: neck pain or back pain Skin/Breast: Denies: rash Neuro: Denies: headache(s), dizziness or vertigo Psych: Reports: anxiety; Denies: depression Endo: Denies: polyuria or polydipsia Meds/Allergies Home Medications and Allergies Home Medications Medication Instructions Recorded Confirmed Last Taken Type acetaminophen 500 mg tablet 1,000 mg PO Q4H PRN 08/18/19 03/21/21 11/20/20 History albuterol sulfate 90 mcg/actuation 2 puff INHALATION Q6H PRN 08/18/19 03/21/21 07/27/20 History aerosol inhaler fluticasone fur. 100 mcg-umeclid 1 inh INHALATION QAM 08/18/19 03/21/21 03/21/21 10:00 History 62.5 mcg-vilant 25 mcg inhalat.powder meclizine 25 mg tablet 25 mg PO Q6H PRN tab 08/18/19 03/21/21 11/20/20 History tamsulosin 0.4 mg capsule 0.4 mg PO BID #180 cap 06/29/20 03/21/21 03/21/21 10:00 Rx atorvastatin [Lipitor] 20 mg PO QAM 07/26/20 03/21/21 03/21/21 10:00 History escitalopram oxalate 10 mg tablet 5 mg PO QAM tab 01/29/21 03/21/21 03/21/21 10:00 History ascorbic acid (vitamin C) [Vitamin 1,000 mg PO QPM 03/21/21 03/21/21 03/20/21 History C] multivitamin 1 tab PO QAM 03/21/21 03/21/21 03/21/21 10:00 History Allergies Allergy/AdvReac Type Severity Reaction Status Date / Time No Known Allergies Allergy Verified 03/21/21 17:10 Current Medications Current Medications Generic Name Dose Route Start Last Admin Trade Name Freq PRN Reason Stop Dose Admin Aspirin 81 mg 03/22/21 08:00 03/22/21 13:26 Aspirin 81 Mg Ec Tablet PO Not Given DAILY ADDY Atorvastatin Calcium 20 mg 03/22/21 09:00 03/22/21 08:07 Atorvastatin 40 Mg Tablet PO 20 mg QAM ADDY Administration Carvedilol 3.125 mg 03/22/21 09:00 03/22/21 09:04 Carvedilol 3.125 Mg Tablet PO 3.125 mg BID ADDY Administration Escitalopram Oxalate 5 mg 03/22/21 09:00 03/22/21 09:04 Escitalopram 10 Mg Tablet PO 5 mg QAM ADDY Administration Famotidine 20 mg 03/22/21 09:00 03/22/21 08:07 Famotidine 20 Mg Tablet PO 20 mg BID ADDY Administration Heparin Sodium/Sodium Chloride 25,000 unit in 500 mls @ 0 mls/hr 03/21/21 18:00 03/22/21 08:22 Heparin Drip IV 12.17 unit/kg/hr .Q0M ADDY 14.9 mls/hr Titration Protocol Per Protocol Ceftriaxone Sodium 1,000 mg/ 50 mls @ 100 mls/hr 03/22/21 09:00 03/22/21 08:45 Sodium Chloride IV 100 mls/hr Q24H ADDY Administration Protocol Sodium Chloride 1,000 mls @ 50 mls/hr 03/22/21 12:30 03/22/21 13:43 Sodium Chloride 0.9% IV 50 mls/hr .Q20H ADDY Administration Levetiracetam 500 mg 03/22/21 07:52 03/22/21 13:26 Levetiracetam 500 Mg Tablet PO Not Given BID ADDY Tamsulosin HCl 0.4 mg 03/22/21 09:00 03/22/21 08:07 Tamsulosin 0.4 Mg Capsule PO 0.4 mg BID ADDY Administration PFSH Acute PFSH: Medical History Benign prostatic hyperplasia with lower urinary tract symptoms Chronic prostatitis COPD (chronic obstructive pulmonary disease) Elevated PSA Surgical History History of amputation of toe History of appendectomy History of inguinal hernia repair right History of tonsillectomy Status post left inguinal hernia repair Status post right inguinal hernia repair (11/21/20) Recurrent Family History Mother , at age 84-leukemia No problems noted. Father , at age 64--heart attack No problems noted. Social History Smoking and tobacco status: current every day smoker cigarettes Packs smoked per day: 1 Quit status (tobacco): has tried quititng Alcohol intake: never Marital status: Current occupational status: employed History of recent travel: No Vitals/I&O/Wt Last Vital Signs Temp 97.8 F 03/22/21 11:00 Pulse 73 03/22/21 11:00 Resp 18 03/22/21 11:00 BP 101/64 03/22/21 11:00 Pulse Ox 100 03/22/21 11:00 03/21/21 03/22/21 03/22/21 22:59 06:59 14:59 Intake Total 111.475 / 111.475 90.744 / 90.744 Balance 111.475 / 111.475 90.744 / 90.744 Weight last 48 hrs Weight 135 lb Physical Exam Const: COMMON NORMALS: no acute distress and patient oriented x3 Resp: COMMON NORMALS: normal respiratory effort, No retractions, No use of accessory muscles and clear to auscultation bilaterally AUSCULTATION: clear to auscultation bilaterally Cardio: COMMON NORMALS: regular rate, regular rhythm, S1 normal heart sound present and S2 normal heart sound present RATE: regular rate RHYTHM: regular rhythm HEART SOUNDS: S1 normal heart sound present and S2 normal heart sound present GI: COMMON NORMALS: Normal to inspection, nondistended, normoactive bowel sounds present, Soft to palpation and non-tender PALPATION: Yes Soft to palpation Extremity: COMMON NORMALS: no pedal edema Neuro: COMMON NORMALS: patient oriented x3 Psych: COMMON NORMALS: mental status grossly normal A&P Assessment and plan (1) Elevated troponin: Status: Acute (2) COPD (chronic obstructive pulmonary disease): Status: Acute 80 year old man with no significant cardiac history presented with seizure like activity and was found to have elevated troponins. No symptoms suggestive of NM. Likely demand ischemia, however given the extent of troponin elevation reasonable to complete 48 hours of anticoagulation Continue aspirin and statin ECHO showed normal LV systolic function, RV is dilated. CTA to rule out PE. Patient will need ischemic evaluation with a stress test. Continue tele monitoring Thank you for involving us with care of this patient. We will continue to follow. Please call with questions Coding Level of Care Code Acute Sales Marketing Director for Chg Fwd Diagnoses Elevated troponin R77.8 COPD (chronic obstructive pulmonary disease) J44.9
[2021-03-22 14:54] LABS: Partial Thromboplastin Time 59.6 SECONDS (23.9-36.7)
[2021-03-22] MEDS: acetaminophen 325 mg Tablet 650 MG PO (21:07)
[2021-03-22 22:17] LABS: Partial Thromboplastin Time 48.8 SECONDS (23.9-36.7)
[2021-03-22] MEDS: heparin 5,000 unit/mL INJ 1 mL IV (22:30)
[2021-03-23] VITALS (34 sets, daily range): BP systolic 94–125; BP diastolic 49–85; PULSE 57–83; RESP 15–26; TEMP 36.5–36.9; O2SAT 93–100
[2021-03-23 04:58] LABS: Basophils # 0.1 10^3/uL (0.0-0.1); Basophils % 0.6 %; Eosinophils # 0.2 10^3/uL (0.0-0.8); Eosinophils % 2.3 %; Hematocrit 32.7 % (42.0-52.0); Hemoglobin 10.4 g/dL (11.7-16.6); Lymphocytes # 1.4 10^3/uL (0.8-4.8); Lymphocytes % 16.6 %; Mean Corpuscular HGB Conc 31.8 g/dL (30.0-36.0); Mean Corpuscular Hemoglobin 32.5 pg (28.0-34.0); Mean Corpuscular Volume 102.2 fl (80-94); Mean Platelet Volume 9.9 fL (7.4-10.4); Monocytes # 1.2 10^3/uL (0.2-0.9); Neutrophils # 5.44 10^3/uL (1.8-7.7); Neutrophils % 66.3 %; Nucleated Red Blood Cells % 0 %; Platelet Count 253 10^3/cmm (130-400); Red Cell Distribution Width 13.8 % (12.1-15.1); White Blood Count 8.2 10^3/uL (4.0-10.0)
[2021-03-23 05:25] LABS: Chol HDL Ratio 2.28 mg/dL (1.0-5.00); Cholesterol 130 mg/dL (0-200); HDL Cholesterol 57 mg/dL (60-100); LDL Cholesterol Calculated 62 mg/dL (50-129); LDL HDL Ratio 1.09 RATIO (0.00-3.22); Triglycerides 55 mg/dL (0-150)
[2021-03-23] MEDS: atorvastatin 40 mg Tablet 20 MG PO (05:28)
[2021-03-23] MEDS: escitalopram 10 mg Tablet 5 MG PO (05:29)
[2021-03-23] MEDS: heparin drip 25,000 UNIT/500 ML PREMIX 15.9 UNIT IV (05:30)
[2021-03-23 05:32] LABS: Partial Thromboplastin Time 89.6 SECONDS (23.9-36.7)
[2021-03-23 05:33] LABS: Alanine Aminotransferase 26 U/L (0-41); Albumin Level 3.3 g/dL (3.5-5.2); Alkaline Phosphatase 57 IU/L (40-130); Anion Gap 13.5 (5-19); Aspartate Amino Transferase 44 U/L (0-40); Blood Urea Nitrogen 19 mg/dL (8-23); Carbon Dioxide 27 mmol/L (22-29); Chloride 107 mmol/L (98-107); Globulin 1.9 g/dL (1.3-4.6); Glucose 74 mg/dL (65-115); NT Pro B Type Natriuretic Pept 2632 pg/mL (0-450); Osmolality Calculated 295 mOsm/kg (285-295); Potassium 5.5 mmol/L (3.5-5.1); Sodium 142 mmol/L (136-145); Total Bilirubin 0.3 mg/dL (0.15-1.2); Total Protein 5.2 g/dL (6.6-8.7)
[2021-03-23 05:36] LABS: Creatine Phosphokinase 372 U/L (39-308); Troponin T (5th) Once 1635 ng/L (0-15)
--- NOTE | 2021-03-23 07:54 | PC.NURSE ---
Pt presents lying in bed at 45 degree eating breakfast and talking to staff. Pts resp even and non -labored no distress noted. Pt had no c/o pain or discomfort at the present time. No needs voiced. Call light in reach. Will cont to monitor.
--- NOTE | 2021-03-23 08:00 | ECG_ITS ---
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 Measurements Intervals [place] Rate: 57 P: 78 CT: 138 QRS: 269 QRSD: 138 T: -50 QT: 404 QTc: 396 Interpretive Statements SINUS BRADYCARDIA RIGHT BUNDLE BRANCH BLOCK [120+ ms QRS DURATION, UPRIGHT V1, 40+ ms S IN I/aVL/V4/V5/V6] LEFT POSTERIOR FASCICULAR BLOCK [QRS AXIS > 109, INFERIOR Q] MODERATE T-WAVE ABNORMALITY, CONSIDER INFERIOR ISCHEMIA [-0.1+ mV T-WAVE IN II/aVF] Compared to ECG 03/21/2021 20:28:26 Left posterior fascicular block now present T-wave abnormality now present Possible ischemia now present Sinus rhythm no longer present Left-axis deviation no longer present Electronically Signed On 03-25-2021 19:18:18 CDT by Rama Condon M.D. [email or web address]
[2021-03-23] MEDS: aspirin 81 mg EC Tablet PO (09:26)
[2021-03-23] MEDS: levETIRAcetam 500 mg Tablet PO (09:26)
[2021-03-23] MEDS: famotidine 20 mg Tablet PO ×2 (09:27→17:51)
[2021-03-23] MEDS: tamsulosin 0.4 mg Capsule PO ×2 (09:27→17:51)
[2021-03-23] MEDS: carvedilol 3.125 mg Tablet PO ×2 (09:27→17:51)
[2021-03-23] MEDS: cefTRIAXone 1,000 MG in sodium chloride 0.9% (plus) 50 ML 100 MG IV (09:27)
[2021-03-23] MEDS: sodium chloride 0.9% 1,000 ML 50 ML IV ×2 (09:34→11:28)
[2021-03-23] MEDS: diphenhydrAMINE 50 mg Capsule PO (11:11)
--- NOTE | 2021-03-23 11:37 | XACV_ITS ---
Exam Room: [facility] Ht: 175 cm Wt: 61 kg BSA: 1.72 m2 Gender: Male : 1940 Any Known Allergies: No known allergies Exam Priority: Routine Indication(s): - Elevated troponin - Acute coronary syndrome Procedure(s): Procedure Description: Diagnostic procedure Procedure Description: PCI procedure Procedure Description: Drug Eluting Coronary Stent Procedure Description: PTCA Procedure Description: Coronary Angiography Diagnostic Cath Status: Urgent Diagnostic Findings * INDICATION: Patient presented with a syncopal episode. Family described seizure-like activity. His troponin is trended up. However no chest pain or acute ST changes. Given troponin elevation to more than 1600, syncopal episode and seizure-like activity could have been cardiac arrest. Plan for coronary angiogram.. * Mid Right Coronary Artery: 99% stenosis, KY: 3 flow. * Left Main has no disease. * Left Anterior Descending has no disease. * Circumflex has no disease. * Coronary angiography shows right dominance. PCI Status: Urgent PCI Indication: NSTE - ACS Interventional Findings * Procedure details: We engaged RCA with a JR4 guide catheter. IV heparin was administered to maintain an ACT above 250 seconds. A 0.014 run-through guidewire was used to cross the stenosis and was placed in distal vessel. 2.5 x 12 mm semicompliant balloon was used to predilate the stenosis. This was followed by placement of 3.0 x 15 mm resolute [place] drug-eluting stent. We postdilated the proximal part of stent with 3.0 x 6 mm NC balloon. However an area of underexpansion was still noted. We post dilated the stent with a 3.25x6mm NC balloon. At this time final angiogram was performed that showed good stent expansion, KY-3 flow. Guidewire and guide catheter were removed. Patient left the Veterinary Technologist in a stable condition. * Mid Right Coronary Artery: 99% stenosis treated with a AB TREK 2.50X12 RX BALLOON, MDT R DAVID 3.0X15 JOHN, MDT NC EUPHORA RX [id number] BALLOON, and MDT NC EUPHORA RX [id number] BALLOON. 0% residual stenosis, KY: 3 flow. Conclusions 1. Severe stenosis of the mid RCA treated with JOHN X 1. 2. Mid Right Coronary Artery was treated with a Balloon, Drug Eluting Stent, Balloon, and Balloon. Recommendations * Aspirin and Plavix for atleast 1 year. * High intensity statin therapy. * Smoking cessation advised. * Outpatient cardiology follow up in 4 weeks. Interventional RX Recommendation: PCI w/o planned CABG Diagnostic RX Recommendation: PCI w/o planned CABG Anticoagulation: Heparin Pressures Phase:Rest AO : 89 / 55 ( 70 ) @ 11:09:00 AM 71 / 41 ( 55 ) @ 11:21:00 AM 90 / 51 ( 67 ) @ 11:25:00 AM 117 / 60 ( 82 ) @ 11:33:00 AM Clinical Evaluation EBL: 5mL-10mL Procedural Details Procedure Consent Obtained. Paula Benitez RN circulating with Karishma Florez RN. Pre-Procedure Time Out. Identified patient by full name and date of as verbalized by the patient/guarantor. Does the consent match the physician's order: Yes. Accurate & Complete Informed Consent: Yes. Inpatient/Outpatient History & Physical on Chart: Yes. If H&P is completed, is and addenduem needed: No. Relevant Radiology Images available: Yes. The risks, benefits, and alternatives of sedation and/or procedure were discussed by physician. The patient agrees to continue. Procedure started. [facility] Clinical Fraility Score: 3: Managing Well. Veterinary Technologist Indications: ACS > 24 hours. Chest Pain Symptom Assessment: Non-anginal Chest Pain. Cardiovascular Instability: No. Correct patient, site and procedure confirmed by cath team. PERRLA. Strong, equal hand pocket maker bilaterally. Lungs clear x 5 lobes. IV Site on Arrival: 20 gauge in the right forearm. IV Fluids: 0.9% NaCl at KVO. 0 mL infused prior to labor relations supervisor. Pre Procedural Pulses: bilateral dorsalis pedis was Doppled. Pre Procedural Pulses: bilateral posterior tibial was Doppled. Pre Procedural Pulses: bilateral radial was Doppled. Oxygen started at 2liters/min via nasal canula. right groin was prepped with chloroprep then draped in the usual sterile fashion. right radial was prepped with chloroprep then draped in the usual sterile fashion. Physician notified. Baseline sample Acquired. HR: 69 BPM. Patient's family placed in the radiology waiting room. Dr. Hill spoke to the spouse just prior to scrubbing in. Equipment: 6F - Radial. Cardiac Cath Pack. ACIST Manifold Kit Model BT 2000. Heparinized Saline (2 units/mL), 1000 mL bag. Physician arrived. Physician scrubbed in. Immediate Pre-Procedure Time Out. Correct Patient: Yes; Correct Procedure: Yes; Correct Site: Yes; Correct Patient Position: Yes; Correct Supplies: Yes; Dried Flammable Prep: Yes; Blood Products Available: N/A. Lidocaine 1% infiltrated to the right radial. Arterial access obtained. A 5 kinyarwanda TIG catheter in over the exchange wire. Multiple views taken of left coronary artery. Catheter redirected to the RCA. Multiple views taken of right coronary artery. AP pads placed on the patient. ACT drawn. Results 97 seconds. Therapeutic limits - pre-heparin administration 90-150 seconds and monitoring heparin during a vascular procedure >250 seconds. Catheter removed over the exchange wire. Diagnostic complete starting intervention. 6 kinyarwanda JR 4 guide catheter was inserted over the exchange wire. Runthrough guidewire was advanced through the guide catheter to lesion in the mid RCA. Inflation number : 1 A AB TREK 2.50X12 RX BALLOON was prepped and advanced across the Mid RCA , then inflated to 12 MONROE for 0:15 seconds. Inflation number: 2 The AB TREK 2.50X12 RX BALLOON was reinflated across the Mid RCA, to 12 MONROE for 0:16 seconds. Inflation number: 3 The AB TREK 2.50X12 RX BALLOON was reinflated across the Mid RCA, to 12 MONROE for 0:19 seconds. results checked. Inflation number: 4 The AB TREK 2.50X12 RX BALLOON was reinflated across the Mid RCA, to 12 MONROE for 0:15 seconds. Inflation number: 5 The AB TREK 2.50X12 RX BALLOON was reinflated across the Mid RCA, to 12 MONROE for 0:17 seconds. Balloon out, results checked. Inflation Number : 6 A MDT R DAVID 3.0X15 JOHN -Lot Number# [id number] was prepped and advanced across the Mid RCA. The stent was deployed at 12 MONROE for 0:21 seconds. Exp. 11/05/2023. Stent balloon out, results checked. Inflation number : 7 A MDT NC EUPHORA RX [id number] BALLOON was prepped and advanced across the Mid RCA , then inflated to 12 MONROE for 0:22 seconds. Inflation number: 8 The MDT NC EUPHORA RX [id number] BALLOON was reinflated across the Mid RCA, to 14 MONROE for 0:21 seconds. Inflation number: 9 The MDT NC EUPHORA RX [id number] BALLOON was reinflated across the Mid RCA, to 18 MONROE for 0:14 seconds. Balloon out, results checked. Wire out. Results checked. Physician review of cine films. Current Diagnosis : ACS. PCI Indication: NSTE. Runthrough guidewire was advanced through the guide catheter to lesion in the mid RCA. Inflation number : 10 A MDT NC EUPHORA RX [id number] BALLOON was prepped and advanced across the Mid RCA , then inflated to 18 MONROE for 0:22 seconds. ACT drawn. Results 210 seconds. Therapeutic limits - pre-heparin administration 90-150 seconds and monitoring heparin during a vascular procedure >250 seconds. Inflation number: 11 The MDT NC EUPHORA RX 3.91O65PO BALLOON was reinflated across the Mid RCA, to 14 MONROE for 0:11 seconds. Balloon out, results checked. Wire out. Results checked. Guide catheter out over the exchange wire. Physician scrubbed out. TR band placed. Hemostasis obtained. Post Procedure: Pulses reassessed and unchanged. PERRLA. Strong, equal hand pocket maker bilaterally. No VTE prophylaxis required. Medication's Wasted: Lidocaine 1% = 18 mL. Total IV fluids: 200 mL. Medication's Wasted: Nitro = 49.7 mg. Medication's Wasted: Heparin = 2000 mg. Post-op diagnosis: Severe Mid RCA Thombotic stenosis. Complications: none. Estimated blood loss: 5mL-10mL. A TR Band was successful obtaining hemostatsis at the Right Radial artery insertion site. Procedure completed. Patient transferred by bed to 1st floor. Vital chart was stopped. Access Site Site: Right Radial artery Sheath Size: 6 Fr Hemostasis Method: TR Band Hemostasis Success: Successful Procedure Medications Start: 11:57 AM Stop: 11:57 AM Medication: Versed Amount: 1 mg Route: I.V. Start: 11:57 AM Stop: 11:57 AM Medication: Fentanyl Amount: 25 mcg Route: I.V. Start: 12:05 PM Stop: 12:05 PM Medication: Nitrogylcerin Amount: 100 mcg Route: I.A. Start: 12:16 PM Stop: 12:16 PM Medication: Heparin Amount: 7000 units Route: I.V. Start: 12:16 PM Stop: 12:16 PM Medication: Aggrastat 12.5 mg/250 mL Amount: 31 ml Route: I.V. bolus Start: 12:19 PM Stop: 12:19 PM Medication: Versed Amount: 1 mg Route: I.V. Start: 12:31 PM Stop: 12:31 PM Medication: Aggrastat 12.5 mg/250 mL Amount: 11.2 ml/hr Route: I.V. drip Start: 12:32 PM Stop: 12:32 PM Medication: Nitrogylcerin Amount: 200 mcg Route: I.C. Start: 12:37 PM Stop: 12:37 PM Medication: Fentanyl Amount: 25 mcg Route: I.V. Start: 12:41 PM Stop: 12:41 PM Medication: Heparin Amount: 2000 units Route: I.V. Start: 12:50 PM Stop: 12:50 PM Medication: Plavix Amount: 600 mg Route: P.O. I, the attending physician, have reviewed and verified all procedure medications. Yes, all medications given per verbal order History/Risk Factors Hypertension: No Dyslipidemia: Yes Peripheral Arterial Disease (PAD): No Myocardial Infarction (PR): No Obesity: No Renal Disease: No Tobacco Use: Current/Recent(w/in 1 year) Prior Interventions PCI: No CABG: No Valve Surgery: No Report Signatures Finalized by Jonathan Hill MD on 03/24/2021 10:17 PM
--- NOTE | 2021-03-23 11:56 | W.PM.OPSUD ---
Surgery/Procedure H&P Update DATE OF PROCEDURE: March 23, 2021 DATE H&P PERFORMED: 03/22/21 H&P UPDATE INFORMATION: I have reviewed H&P completed within last 30 days, I have examined patient prior to procedure and No changes to prior documentation PREOP DIAGNOSIS: NSTEMI PRIMARY INDICATION FOR PROCEDURE: NSTEMI PLANNED PROCEDURE: Left heart cath with possible percutaneous coronary intervention PATIENT REASSESSED PRIOR TO SEDATION, WITH NO CHANGE NOTED: Yes PHYSICAL EXAM: alert, oriented x 3, clear to auscultation bilaterally and regular rate & rhythm AIRWAY EVAL/ANESTHESIA PLAN: ASA III, Monitored Anesthesia, Local Anesthesia, Risks, benefits & alternatives of sedation and/or procedure discussed and Patient agrees to continue as planned
--- NOTE | 2021-03-23 12:29 | PC.NURSE ---
Pt left for laboratory chemical assistant at 1145.
--- NOTE | 2021-03-23 13:46 | PM.PN ---
Subjective Subjective: Interval history: Patient is chest pain free, however morning troponin was significantly elevated with a level >1600. EKG performed this AM showed mild ST elevation in the inferior leads not meeting STEMI criteria. However given the troponin elevation and EKG changes compared to before, we proceeded with coronary angiogram, that showed severe, thrombotic mid RCA stenosis. Left system was patent. He underwent successful revascularization with JOHN x 1. Vitals/I&O/Wt Last Vital Signs Temp 98.2 F 03/23/21 11:59 Pulse 61 03/23/21 11:59 Resp 15 03/23/21 11:59 BP 125/64 03/23/21 11:59 Pulse Ox 100 03/23/21 11:59 03/22/21 03/23/21 03/23/21 22:59 06:59 14:59 Intake Total 211.083 / 351.827 86.698 / 975.991 9711 / 1305 Output Total 200 / 200 350 / 350 Balance 11.083 / 151.827 86.698 / 238.525 955 / 955 Weight last 48 hrs Weight 135 lb Physical Exam Narrative: EXAM NARRATIVE: GENERAL: Patient is alert, awake and oriented x3. [] NECK: No jugular vein distension. [] HEENT: No cyanosis. No icterus. No pallor. [] HEART: Regular S1 and S2. No murmur, rub or gallop. [] LUNGS: Clear to auscultate bilaterally. [] ABDOMEN: Soft, nontender and nondistended. Positive bowel sounds. No guarding, rebound or tenderness. [] CENTRAL NERVOUS SYSTEM: Grossly nonfocal. [] EXTREMITIES: Lower extremities with no edema bilaterally. Pulses palpable in the lower extremities, both dorsalis pedis and posterior tibial. [] Data : 03/23/21 03:57 03/23/21 03:57 A&P Assessment and plan (1) Elevated troponin: Status: Acute (2) COPD (chronic obstructive pulmonary disease): Status: Acute (3) NSTEMI (non-ST elevated myocardial infarction): Status: Acute Patient had presented with loss of consciousness and seizure-like activity. His troponins were elevated however he was chest pain-free. No EKG changes on admission suggestive of ischemia. He had known right bundle branch block. However given the extent of this troponin elevation, he was kept on heparin drip to continue for 48 hours. He remained chest pain-free. His troponins kept trending up and EKG this morning showed borderline ST elevation in the inferior leads not meeting STEMI criteria. Given significant troponin elevation and loss of consciousness with seizure-like activity concerning for possible cardiac arrest, and dynamic EKG changeswe decided to proceed with coronary angiogram. His left system was patent. Mid RCA had severe 99% stenosis with thrombus seen in the vessel. He underwent successful revascularization with JOHN x1. His presentation to hospital was likely secondary to cardiac arrest rather than seizure Continue aspirin and Plavix for at least 1 year. LV systolic function is preserved. RV is dilated and hypokinetic. Aggrastat drip for 4 hours. High intensity statin therapy. CTA ruled out PE Thank you for involving us with the care of this patient. We will continue to follow. Please call with questions. Attestations Medical Necessity Statement*: Care expected to cross 2 midnights. Coding Level of Care Code Acute Folder Inspector for Jesica Johnson Diagnoses Elevated troponin R77.8 COPD (chronic obstructive pulmonary disease) J44.9 NSTEMI (non-ST elevated myocardial infarction) I21.4
--- NOTE | 2021-03-23 13:47 | P.PN_ITS ---
Subjective Subjective: Interval history: Patient denies chest pain this morning, no shortness of breath, no lightheaded, dizziness, no nausea, no vomiting, Vitals/I&O/Wt Last Vital Signs Temp 98.2 F 03/23/21 11:59 Pulse 61 03/23/21 11:59 Resp 15 03/23/21 11:59 BP 125/64 03/23/21 11:59 Pulse Ox 100 03/23/21 11:59 03/22/21 03/23/21 03/23/21 22:59 06:59 14:59 Intake Total 211.083 / 351.827 86.698 / 697.820 7220 / 1305 Output Total 200 / 200 350 / 350 Balance 11.083 / 151.827 86.698 / 238.525 955 / 955 Weight last 48 hrs Weight 61.235 kg Physical Exam Const: COMMON NORMALS: no acute distress and patient oriented x3 Resp: COMMON NORMALS: normal respiratory effort, No retractions, No use of accessory muscles and clear to auscultation bilaterally AUSCULTATION: clear to auscultation bilaterally Cardio: COMMON NORMALS: regular rate, regular rhythm, S1 normal heart sound present and S2 normal heart sound present RATE: regular rate RHYTHM: regular rhythm HEART SOUNDS: S1 normal heart sound present and S2 normal heart sound present GI: COMMON NORMALS: Normal to inspection, nondistended, normoactive bowel sounds present, Soft to palpation and non-tender PALPATION: Yes Soft to palpation Extremity: COMMON NORMALS: no pedal edema Neuro: COMMON NORMALS: patient oriented x3 Psych: COMMON NORMALS: mental status grossly normal Data : 03/23/21 03:57 03/23/21 03:57 A&P Assessment and plan (1) NSTEMI (non-ST elevated myocardial infarction): Admit to CSU -Baseline troponin 126, 6-hour 309, delta 435, BNP 1421 -EKG no acute ST-T wave changes -TSH WNL, mag WNL -ct angio: 1. Proximal main pulmonary arteries are normal. No evidence of pulmonary embolus. 2. Moderate chronic emphysematous changes. No acute pulmonary infiltrates. 3. A few subcentimeter pulmonary nodules and semisolid pulmonary opacities largest measuring 11 mm in right lower lobe are unchanged from previous. Slightly more prominent right lower lobe nodule measuring 5 mm. Recommend 6 month follow-up chest CT. 4. No mediastinal or hilar lymphadenopathy. 5. Slightly ectatic upper abdominal aorta measuring 2.5 x 3.0 cm unchanged. Slightly ectatic aortic arch measuring 3.4 cm unchanged. 6. Partially visualized small bilateral renal cysts plan -Echocardiogram shows EF of 50 to 55%, septal wall motion is consistent with conduction abnormalities, grade 1 diastolic dysfunction, right ventricle is dilated mildly hypokinetic -Troponin this morning 1635, EKG shows sinus bradycardia, right bundle branch block, T wave abnormalities Plan: -Aspirin, statin, Coreg -heparin drip, -Plan on cardiac catheterization today -Cardiology on consult -Full code -Heparin for DVT prophylaxis Status: Acute (2) Seizure: -No evidence of electrolyte abnormalities's, sounds like a true seizure -Start Keppra 500 twice daily Status: Acute (3) COPD (chronic obstructive pulmonary disease): Status: Acute (4) Internal carotid artery stenosis: -Left ICA stenosis Chronicity unknown, no focal neurologic deficits, 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
--- NOTE | 2021-03-23 16:23 | PC.NURSE ---
Second armband was added just proximal to the first d/t swelling and hematoma. Pt tolerated well. Pt had no c/o pain or discomfort. Will continue to monitor.
--- NOTE | 2021-03-23 16:43 | PC.NURSE ---
Aggrastat turned off at 1635.
--- NOTE | 2021-03-23 18:00 | PC.NURSE ---
TR Band removed no hematoma or swelling noted. Drsg in place dry and intact. Pt tolerated well. Pt had no c/o pain or discomfort at the present time. Will continue to monitor.
[2021-03-23] MEDS: acetaminophen 325 mg Tablet 650 MG PO (22:01)
[2021-03-24 00:14] VITALS: BP 112/66; PULSE 70; RESP 20; O2SAT 98
[2021-03-24 04:04] VITALS: BP 115/54; PULSE 69; RESP 18; TEMP 36.6; O2SAT 99
[2021-03-24 05:35] LABS: Basophils # 0.1 10^3/uL (0.0-0.1); Basophils % 0.6 %; Eosinophils # 0.3 10^3/uL (0.0-0.8); Eosinophils % 3.3 %; Hematocrit 31.9 % (42.0-52.0); Hemoglobin 10.2 g/dL (11.7-16.6); Lymphocytes # 1.1 10^3/uL (0.8-4.8); Lymphocytes % 13.2 %; Mean Corpuscular Hemoglobin 32.4 pg (28.0-34.0); Mean Corpuscular Volume 101.3 fl (80-94); Mean Platelet Volume 9.9 fL (7.4-10.4); Monocytes # 1.2 10^3/uL (0.2-0.9); Monocytes % 13.5 %; Nucleated Red Blood Cells % 0 %; Platelet Count 256 10^3/cmm (130-400); Red Blood Count 3.15 10^6/uL (4.1-5.3); Red Cell Distribution Width 13.7 % (12.1-15.1); White Blood Count 8.5 10^3/uL (4.0-10.0)
[2021-03-24] MEDS: escitalopram 10 mg Tablet 5 MG PO (05:36)
[2021-03-24] MEDS: atorvastatin 40 mg Tablet PO (05:37)
[2021-03-24 06:00] VITALS: PULSE 75
[2021-03-24 06:08] LABS: Alanine Aminotransferase 25 U/L (0-41); Albumin Level 3.1 g/dL (3.5-5.2); Alkaline Phosphatase 58 IU/L (40-130); Anion Gap 9.6 (5-19); Aspartate Amino Transferase 38 U/L (0-40); Blood Urea Nitrogen 21 mg/dL (8-23); Carbon Dioxide 27 mmol/L (22-29); Chloride 106 mmol/L (98-107); Globulin 2.3 g/dL (1.3-4.6); Glucose 67 mg/dL (65-115); Magnesium 2.1 mg/dL (1.7-2.3); Osmolality Calculated 287 mOsm/kg (285-295); Phosphorus 3.9 mg/dL (2.5-4.5); Potassium 4.6 mmol/L (3.5-5.1); Sodium 138 mmol/L (136-145); Total Bilirubin 0.3 mg/dL (0.15-1.2); Total Protein 5.4 g/dL (6.6-8.7)
[2021-03-24 06:27] LABS: Creatine Phosphokinase 336 U/L (39-308)
[2021-03-24 07:35] VITALS: BP 131/70; PULSE 83; RESP 18; TEMP 36.6; O2SAT 97
[2021-03-24] MEDS: clopidogrel 75 mg Tablet PO (08:29)
[2021-03-24] MEDS: aspirin 81 mg EC Tablet PO (08:29)
[2021-03-24] MEDS: famotidine 20 mg Tablet PO (08:29)
[2021-03-24] MEDS: tamsulosin 0.4 mg Capsule PO (08:29)
[2021-03-24] MEDS: carvedilol 3.125 mg Tablet PO (08:29)
[2021-03-24] MEDS: cefTRIAXone 1,000 MG in sodium chloride 0.9% (plus) 50 ML 100 MG IV (08:30)
--- NOTE | 2021-03-24 09:22 | P.PN_ITS ---
Subjective Subjective: Interval history: Patient is doing well. Denies any complaints of chest pain, shortness of breath or palpitations. Vitals/I&O/Wt Last Vital Signs Temp 97.8 F 03/24/21 07:35 Pulse 83 03/24/21 07:35 Resp 18 03/24/21 07:35 BP 131/70 03/24/21 07:35 Pulse Ox 97 03/24/21 07:35 03/23/21 03/24/21 03/24/21 22:59 06:59 14:59 Intake Total 1062.667 / 2367.667 Output Total 250 / 600 600 / 1200 200 / 200 Balance 812.667 / 1767.667 -600 / 1167.667 -200 / -200 Physical Exam Narrative: EXAM NARRATIVE: GENERAL: Patient is alert, awake and oriented x3. [] NECK: No jugular vein distension. [] HEENT: No cyanosis. No icterus. No pallor. [] HEART: Regular S1 and S2. No murmur, rub or gallop. [] LUNGS: Clear to auscultate bilaterally. [] ABDOMEN: Soft, nontender and nondistended. Positive bowel sounds. No guarding, rebound or tenderness. [] CENTRAL NERVOUS SYSTEM: Grossly nonfocal. [] EXTREMITIES: Lower extremities with no edema bilaterally. Pulses palpable in the lower extremities, both dorsalis pedis and posterior tibial. [] Data : 03/24/21 04:23 03/24/21 04:23 A&P Assessment and plan (1) Elevated troponin: Status: Resolved (2) COPD (chronic obstructive pulmonary disease): Status: Acute (3) NSTEMI (non-ST elevated myocardial infarction): Status: Resolved Patient had presented with loss of consciousness and seizure-like activity. His troponins were elevated however he was chest pain-free. No EKG changes on admission suggestive of ischemia. He had known right bundle branch block. However given the extent of this troponin elevation, he was kept on heparin drip to continue for 48 hours. He remained chest pain-free. His troponins kept trending up and EKG yesteraday morning showed borderline ST elevation in the inferior leads not meeting STEMI criteria. Given significant troponin elevation and loss of consciousness with seizure-like activity concerning for possible cardiac arrest, and dynamic EKG changes, we decided to proceed with coronary angiogram. His left system was patent. Mid RCA had severe 99% stenosis with thrombus seen in the vessel. He underwent successful revascularization with JOHN x1. His presentation to hospital was likely secondary to cardiac arrest rather than seizure Continue aspirin and Plavix for at least 1 year. LV systolic function is preserved. RV is dilated and hypokinetic. High intensity statin therapy. CTA ruled out PE Patient is doing well. No access site complications. Thank you for involving us with the care of this patient. Patient is stable to be discharged from cardiology standpoint. Please call with questions. Attestations Medical Necessity Statement*: Care expected to cross 2 midnights. Coding Level of Care Code Acute Remote Sensing Technologist for g Fwd Diagnoses Elevated troponin R77.8 COPD (chronic obstructive pulmonary disease) J44.9 NSTEMI (non-ST elevated myocardial infarction) I21.4
--- NOTE | 2021-03-24 11:45 | PM.DCS ---
Discharge Providers Date of Admission: 03/22/21 15:20 Date of Discharge: March 24, 2021 Attending Provider at Admission: Andriy Reich MD Attending Provider at Discharge: Andriy Reich MD Primary Care Provider: Sulma Alcantara MD Diagnoses at Discharge Discharge Diagnosis (1) Elevated troponin: Status: Acute (2) COPD (chronic obstructive pulmonary disease): Status: Acute (3) NSTEMI (non-ST elevated myocardial infarction): Status: Acute (4) Seizure: Status: Acute (5) Internal carotid artery stenosis: Status: Acute Reason for Visit Reason for Visit: SEIZURE LIKE ACTIVITY Hospital Course Hospital Course Jorge Odom is a 80 year old male with a past medical history of COPD 2 L oxygen dependent, smoker, BPH, hyperlipidemia, left foot drop, left ICA complete stenosis, who presents [facility] for seizure-like episode. Patient was admitted to [facility] for seizure-like episode and loss of consciousness, with elevated troponins, initially it was thought the patient had a true seizure-like episode, was started on seizure medications, but had elevated troponins, was started on heparin drip, but given his continually elevating troponin, no significant EKG changes, no complaints of chest pain, he underwent cardiac catheterization which showed mid RCA had severe 99% stenosis with thrombus seen in the vessel, status post successful revascularization with drug-eluting stent. Thus likely patient's seizure-like episode with loss of consciousness, was likely was cardiac arrest rather than the seizure. Patient did well after stent placement, remained chest pain-free, no shortness of breath, no repeat episodes of seizures, no loss of consciousness, echocardiogram showed left ventricular systolic function was preserved, RV is dilated and hypokinetic. CTA ruled out a pulmonary emboli. Patient was discharged home on aspirin and Plavix for at least a year, statin, Coreg, with close follow-up with cardiology as outpatient. He patient's hemoglobin on discharge was 10.2, discharged on Protonix 40 twice daily, with instructions to follow-up with Dr. Infante in 1 week for recheck hemoglobin. Patient was advised if he were to have bloody or black stools go to the emergency room. Patient was advised to quit smoking on discharge Physical Exam Const: COMMON NORMALS: no acute distress and patient oriented x3 HENMT: COMMON NORMALS: normocephalic HEAD & SCALP: normocephalic Resp: COMMON NORMALS: normal respiratory effort, No retractions, No use of accessory muscles and clear to auscultation bilaterally AUSCULTATION: clear to auscultation bilaterally Cardio: COMMON NORMALS: regular rate, regular rhythm, S1 normal heart sound present and S2 normal heart sound present RATE: regular rate RHYTHM: regular rhythm HEART SOUNDS: S1 normal heart sound present and S2 normal heart sound present GI: COMMON NORMALS: Normal to inspection, nondistended, normoactive bowel sounds present, Soft to palpation and non-tender PALPATION: Yes Soft to palpation Extremity: COMMON NORMALS: no pedal edema Neuro: COMMON NORMALS: patient oriented x3 Discharge Data Data Completed and Pending: Completed Studies During Hospitalization Category Date Time Status CT angio chest PE protcl [id number] Urge nt Cat Scan 03/22/21 09:[address] head wo con* [id number] Urgent Cat Scan 03/21/21 16:37 Completed XR elbow RT 2V 73 070 Urgent Exams 03/21/21 16:37 [place] [id number] Routin e Ultrasound 03/22/21 09:20 Completed CV. 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 Routin e Exams 03/23/21 11:37 Ordered Complete Blood Co unt w/Auto AM LABS Lab 03/25/21 04:00 Ordered Complete Blood Co unt w/Auto AM LABS Lab 03/26/21 04:00 Ordered Comprehensive Met abolic Panel AM LA BS Lab 03/25/21 04:00 Ordered Comprehensive Met abolic Panel AM LA BS Lab 03/26/21 04:00 Ordered Creatine Phosphok inase AM LABS Lab 03/25/21 04:00 Ordered Magnesium AM LABS Lab 03/25/21 04:00 Ordered Magnesium AM LABS Lab 03/26/21 04:00 Ordered Phosphorus AM LAB S Lab 03/25/21 04:00 Ordered Phosphorus AM LAB S Lab 03/26/21 04:00 Ordered Platelet Count Q2 D Lab 03/25/21 04:00 Ordered Labs from last 24 hours 03/24/21 03/24/21 03/24/21 04:23 04:23 04:23 WBC 8.5 RBC 3.15 L Hgb 10.2 L Hct 31.9 L MCV 101.3 H MCH 32.4 MCHC 32.0 RDW 13.7 Plt Count 256 MPV 9.9 Neut % (Auto) 69.0 Lymph % (Auto) 13.2 Emanuel % (Auto) 13.5 Eos % (Auto) 3.3 Baso % (Auto) 0.6 Neut # (Auto) 5.90 Lymph # (Auto) 1.1 Emanuel # (Auto) 1.2 H Eos # (Auto) 0.3 Baso # (Auto) 0.1 Nucleated RBC % (a uto) 0 Nucleated RBCs # 0.0 Sodium 138 Potassium 4.6 Chloride 106 Carbon Dioxide 27 Anion Gap 9.6 BUN 21 Creatinine 1.2 GFR Calculation Not Reportable Glucose 67 Calculated Osmolal ity 287 Calcium 8.0 L Phosphorus 3.9 Magnesium 2.1 Total Bilirubin 0.3 AST 38 ALT 25 Alkaline Phosphata se 58 Creatine Kinase 336 H* Total Protein 5.4 L Albumin 3.1 L Globulin 2.3 Vitals: Last Vital Signs Temp 97.8 F 03/24/21 07:35 Pulse 83 03/24/21 07:35 Resp 18 03/24/21 07:35 BP 131/70 03/24/21 07:35 Pulse Ox 97 03/24/21 07:35 Discharge Plan Discharge Patient Disposition: Home Condition: Stable Prescriptions: New carvedilol 3.125 mg Tablet 3.125 mg PO BID 30 Days Qty: 60 RF: 0 clopidogrel 75 mg Tablet 75 mg PO DAILY 30 Days Qty: 30 RF: 0 aspirin 81 mg Tablet,Delayed Release (Dr/Ec) 81 mg PO DAILY 30 Days Qty: 30 RF: 0 nitroglycerin 0.4 mg Tablet, Sublingual 0.4 mg sublingual Q5M PRN (Reason: Chest Pain) 30 Days Qty: 30 RF: 0 atorvastatin 40 mg Tablet 40 mg PO QAM 30 Days Qty: 30 RF: 0 pantoprazole [Protonix] 40 mg tablet,delayed release (DR/EC) 40 mg PO BID 30 Days Qty: 60 RF: 0 Continued escitalopram oxalate [Lexapro] 10 mg tablet 5 mg PO QAM RF: 0 albuterol sulfate [ProAir HFA] 90 mcg/actuation HFA aerosol inhaler 2 puff INHALATION Q6H PRN (Reason: Shortness Of Breath) RF: 0 Trelegy Ellipta 100-62.5-25 mcg blister with device 1 inh INHALATION QAM RF: 0 meclizine 25 mg tablet 25 mg PO Q6H PRN (Reason: Dizziness) RF: 0 acetaminophen [Tylenol Extra Strength] 500 mg tablet 1,000 mg PO Q4H PRN (Reason: Pain) RF: 0 tamsulosin 0.4 mg capsule 0.4 mg PO BID Qty: 180 RF: 3 multivitamin Tablet 1 tab PO QAM RF: 0 Vitamin C 1,000 mg Tablet 1,000 mg PO QPM RF: 0 Discontinued atorvastatin [Lipitor] 20 mg Tablet 20 mg PO QAM RF: 0 Discharge Orders: Discharge Order (Routine); Ordered 03/24/21 Ordered By: Andriy Reich Referrals: Sulma Alcantara MD [Primary Care Provider] - Jonathan Hill M.D [Physician] - 2 weeks Discharge Diet: Cardiac Discharge Activity: Increase activity as tolerated Patient Instructions: Opioid Safety Activity Restrictions/Additional Instructions: -If you have recurrent chest pain please go to the emergency room -Please use nitro as needed for chest pain -Please remember to always take aspirin, and Plavix -Follow-up with Dr. Infante next week to recheck hemoglobin, hemoglobin discharge 10.2 -Please stop smoking -Follow-up with cardiology in 1 to 2 weeks Discharge Attestations Time Spent in Discharge Care*: less than 30 min Quality Metrics Clinical Quality Measures During this hospital stay, did patient experience: AMI Clinical Trial Participant: No Contraindication to aspirin (AMI): Aspirin given Contraindication to statin: Statin prescribed Contraindication to PCI: PCI performed Coding Level of Care Code Acute [facility] IN note Diagnoses Elevated troponin R77.8 COPD (chronic obstructive pulmonary disease) J44.9 NSTEMI (non-ST elevated myocardial infarction) I21.4 Seizure R56.9 Internal carotid artery stenosis I65.29
[2021-03-24 11:57] VITALS: BP 118/67; PULSE 62; RESP 21; O2SAT 98
--- NOTE | 2021-03-24 13:00 | PC.NURSE ---
Discharge Note Patient discharged to Home via private vehicle accompanied by spouse and Daughter. Discharge instructions reviewed with patient and/or sales representative canvas products. Mobile pharmacy medications and/or prescriptions provided. Belongings/home medications returned.
--- NOTE | 2021-03-25 15:56 | PC.SOCIAL ---
discharge follow up call made, spoke with patients . she reports he is weak but feeling better. Let pts know Dr. Alcantara's office will call with follow up date and time. pt is aware of follow up appointment with Dr. Hill. no questions or concerns voiced.
== END 2021-03-24 13:00 | disposition home or self-care (01) | DRG 247 ==
LOC: ER 03-22 08:58 → CSU 03-22 15:20
PROVIDERS: Internal Medicine; Admitting Provider Family Medicine; Emergency Provider Emergency Medicine; PCP Internal Medicine; Visit Provider Family Medicine
PROC: 027034Z Dilation of Coronary Artery, One Artery with Drug-eluting Intraluminal Device, Percutaneous Approach (ICD-10-PCS; principal; 2021-03-23 12:00)
PROC: 027034Z Dilation of Coronary Artery, One Artery with Drug-eluting Intraluminal Device, Percutaneous Approach (ICD-10-PCS; 2021-03-23 12:00)
DX: I21.4 Non-ST elevation (NSTEMI) myocardial infarction (principal); N39.0 Urinary tract infection, site not specified; I25.10 Atherosclerotic heart disease of native coronary artery without angina pectoris; J44.9 Chronic obstructive pulmonary disease, unspecified; N40.1 Benign prostatic hyperplasia with lower urinary tract symptoms; N41.1 Chronic prostatitis; F17.210 Nicotine dependence, cigarettes, uncomplicated; I10 Essential (primary) hypertension; E78.5 Hyperlipidemia, unspecified; M21.372 Foot drop, left foot; I65.22 Occlusion and stenosis of left carotid artery; I45.10 Unspecified right bundle-branch block; Z79.51 Long term (current) use of inhaled steroids
CPT/HCPCS: 36415; 36416; 70450; 70498; 71275; 73070; 80053; 80061; 81001; 82550; 82565; 82962; 83036; 83690; 83735; 83880; 84100; 84443; 84484; 84520; 85025; 85347; 85610; 85730; 87426; 90471; 90715; 93005; 93306; 93454; 93970; 94664; 96361; 96374; 99291; C1725; C1769; C1874; C1887; C1894; C9600; J0461; J0696; J1644; J2250; J3010; J3246; J3490; J7030; Q0163; Q9967

== ENCOUNTER 2021-07-16 15:37 | Emergency (ER) | payer MEDICARE, SELFPAY ==
[2021-07-16 16:11] VITALS: BP 150/69; PULSE 75; RESP 16; TEMP 36.6; O2SAT 98
--- NOTE | 2021-07-16 18:00 | CTR_ITS ---
PROCEDURE INFORMATION: Exam: CT Abdomen And Pelvis With Contrast Exam date and time: 07/16/2021 6:00 PM Age: 80 years old Clinical indication: Abdominal pain; Flank; Left; Prior surgery; Surgery type: Hernia, appy; Additional info: Eval L flank pain TECHNIQUE: Imaging protocol: Computed tomography of the abdomen and pelvis with contrast. Sagittal and coronal reformatted images were created and reviewed. Radiation optimization: All CT scans at this facility use at least one of these dose optimization techniques: automated exposure control; mA and/or kV adjustment per patient size (includes targeted exams where dose is matched to clinical indication); or iterative reconstruction. Contrast material: VISI 320; Contrast volume: 95 ml; Contrast route: INTRAVENOUS (IV); COMPARISON: CT chest w con* [id number] 06/29/2020 9:33 AM RADIATION DOSE METRICS: Total DLP (mGy-cm): 663.91 FINDINGS: Lungs: Bbbe-mg-citxaltu centrilobular emphysematous changes in the visualized lungs. 2 nodules in the visualized right lower lobe. The larger has an average measurement of 6 mm (series 2, image 11). These are stable dating back to 06/29/2020. Pleural spaces: No pleural effusion. Heart: Visualized heart is normal in size. Liver: The liver is unremarkable. Gallbladder and bile ducts: The gallbladder is unremarkable. No biliary ductal dilatation. Pancreas: The pancreas is unremarkable. No pancreatic ductal dilatation. Spleen: The spleen is unremarkable. Adrenal glands: The right and left adrenal glands are unremarkable. Kidneys and ureters: Subcentimeter hypodense foci in both right and left kidneys that are too small to characterize, however likely represent small cysts. 1.7 cm cyst in the right kidney. 2 simple cysts in the left kidney, the larger measures 2.1 cm. The right ureter is unremarkable. 3.9 mm stone at the left ureterovesicular junction with severe left hydroureteronephrosis and moderate in left perinephric/periureteral inflammation. Stomach and bowel: Numerous diverticula in the descending colon and sigmoid colon. No evidence for diverticulitis. No acute abnormality in the small bowel. The stomach is collapsed, which can limit evaluation. No focal abnormality in the stomach otherwise. Appendix: Appendix not definitely visualized. No inflammatory changes in the pericecal region however. Intraperitoneal space: Small amount of free fluid in the pelvis. Vasculature: Moderate atherosclerotic changes in the visualized arteries. 3.0 x 3.2 cm infrarenal abdominal aortic aneurysm (series 2, image 28). The aneurysm does not involve the iliac arteries. No evidence for aneurysm rupture. Lymph nodes: No lymphadenopathy. Urinary bladder: Diffuse, moderate wall thickening of the bladder. Reproductive: The prostate gland is markedly enlarged. Bones/joints: Moderate degenerative changes at both the right and left hips. Bridging anterior osteophytes at the right and left sacroiliac joints, consistent with degenerative change. Multilevel degenerative changes of varying severity in the visualized spine. Bones are diffusely osteopenic. Soft tissues: No acute abnormality in the extra-abdominal soft tissues. CT/CT abdomen pelvis w con* [id number] IMPRESSION: 1. 3.9 mm stone at the left ureterovesicular junction with severe left hydroureteronephrosis and moderate in left perinephric/periureteral inflammation. 2. 2 nodules in the visualized right lower lobe. The larger has an average measurement of 6 mm (series 2, image 11). These are stable dating back to 06/29/2020. Stable pulmonary nodule(s) for which no further follow-up is recommended. (Reference: Pinky) 3. Diffuse, moderate wall thickening of the bladder. In the correct clinical setting, this may suggest cystitis. Recommend correlation with laboratory findings. Alternatively, this may be secondary to chronic outlet obstruction. 4. Small amount of free fluid in the pelvis. 5. Descending colon and sigmoid colon diverticulosis. No evidence for diverticulitis. 6. Small infrarenal abdominal aortic aneurysm. 7. Incidental/nonacute findings are listed in the report. COMMENTS: Consistent with the [employer]'s Incidental Findings Committee white paper (J Am Juno Radiol 2018): Any incidental renal lesion less than 1 cm or classified as too small to characterize, or any incidental cystic renal lesion characterized as simple-appearing, is likely benign. No follow-up imaging is recommended for these lesions per consensus recommendations based on imaging criteria. REFERENCES: Pinky Ordaz et al. Guidelines for Management of Incidental Pulmonary Nodules Detected on CT Images: From the Fleischner Society 2017. Radiology. 2017;284(1):228-243.
[2021-07-16] MEDS: acetaminophen 500 mg Tablet PO (18:35)
[2021-07-16] MEDS: sodium chloride 0.9% 500 ML IV (18:40)
[2021-07-16 18:41] LABS: Basophils % 0.2 %; Eosinophils # 0.1 10^3/uL (0.0-0.8); Eosinophils % 0.7 %; Hematocrit 34.8 % (42.0-52.0); Hemoglobin 11.4 g/dL (11.7-16.6); Lymphocytes # 0.7 10^3/uL (0.8-4.8); Lymphocytes % 4.9 %; Mean Corpuscular HGB Conc 32.8 g/dL (30.0-36.0); Mean Corpuscular Hemoglobin 32.6 pg (28.0-34.0); Mean Corpuscular Volume 99.4 fl (80-94); Mean Platelet Volume 9.1 fL (7.4-10.4); Monocytes # 1.4 10^3/uL (0.2-0.9); Monocytes % 10.3 %; Neutrophils # 11.11 10^3/uL (1.8-7.7); Neutrophils % 83.2 %; Nucleated Red Blood Cells % 0 %; Platelet Count 396 10^3/cmm (130-400); White Blood Count 13.4 10^3/uL (4.0-10.0)
--- NOTE | 2021-07-16 18:43 | ED_ITS ---
HPI - General Adult General: Chief complaint: Abdominal Pain Stated complaint: PAIN IN LEFT SIDE Time Seen by Provider: 07/16/21 17:59 History of Present Illness: HPI narrative: Patient is an 80-year-old male with a history of inguinal hernia, appendectomy, smoking presenting to the emergency room with complaints of left-sided flank pain x 3 days. Patient states pain started 4 days ago. Patient reports pain last for 3 to 4 hours at a time reports intermittent intensity. Pain is not worse with p.o. intake. Patient denies any decreased p.o. intake. Pain is currently 4 out of 10. Patient has no associated symptoms nausea/vomiting, fever/chills, diarrhea, melena hematochezia. Patient not any blood thinner. Denies any associated chest pain, shortness breath, palpitation or lightheadedness, urinary complaints, new penile discharge. Onset: 3 days ago Duration:3 days Location:home Severity:moderate Review of Systems Narrative: Constitutional: No fever, no chills. HEENT: No vision changes CV: No chest pain, no palpitations PULM: no cough, no dyspnea. GI: +L flank pain, no abdominal pain, no N/V/D. : No dysuria MSKEL: No muscle pain SKIN: No new rashes, no lesions. NEURO: No headache, no focal weakness. HEME: No visible bruises PSYCH: Normal mood PFSH ED PFSH: Medical History Benign prostatic hyperplasia with lower urinary tract symptoms Chronic prostatitis COPD (chronic obstructive pulmonary disease) Elevated PSA Surgical History History of amputation of toe History of appendectomy History of inguinal hernia repair right History of tonsillectomy Status post left inguinal hernia repair Status post right inguinal hernia repair (11/21/20) Recurrent Family History Mother , at age 84-leukemia No problems noted. Father , at age 64--heart attack No problems noted. Social History Smoking and tobacco status: current every day smoker cigarettes Packs smoked per day: 1 Quit status (tobacco): has tried quititng Alcohol intake: never Marital status: Current occupational status: employed History of recent travel: No Physical Exam Narrative: EXAM NARRATIVE: Head: Atraumatic Eyes: PERRL, conjunctiva without injection ENT: Mucous membrane moist NECK: Supple, ROM intact LUNGS: LCTAB, no crackles/rhonchi CV: RRR ABDOMEN: Soft, +mild L flank focal TTP. No guarding rebound, guarding, rigidity. +L CVA tenderness to percussion. Neg Valles/Neg McBurney's point tenderness, no suprabupic tenderness to palpation EXTREMITY: Normal ROM SKIN: No rash or erythema NEURO: Awake and alert, no focal motor deficits PSYCH: Normal mood and affect Course Vital Signs: Vital signs: Vital Signs Temperature 97.8 F 07/16/21 16:11 Pulse Rate 65 07/16/21 21:03 Respiratory Rate 17 07/16/21 21:03 Blood Pressure 151/74 07/16/21 21:03 Pulse Oximetry 100 07/16/21 21:03 MDM - General Adult MDM Narrative: Medical decision making narrative: Patient is an 80-year-old male presented to emergency room with complaints of left-sided flank pain for last 3 days. On exam, patient has mild tenderness palpation the left CVA. Work-up showed white count of 13.4. Creatinine 1.8. UA is negative for UTI. CT of pelvis showed severe left-sided hydronephrosis/3.8cm stone. Patient is noted to have potassium 5.5. Baseline potassium of 4.3-5.5. Received 40 mg IV Lasix. EKG did not show any signs of hyperkalemia today. EKG is consistent with baseline. Case was discussed with Dr. Uriostegui 8:40 PM. Given the findings of 3.9 mm stone at the UVJ with creatinine of 1.8, Dr. Uriostegui recommend close follow-up with outpatient urology. I have given patient follow up with our operation manager to be seen by our outpatient primary care provider for evaluation of hyperkalemia. Patient aware of a call from our operation manager to schedule for appointment(s) and verbalizes understanding of the importance of following up. Patient is also given a script for hydrochlorothiazide for hyperkalemia Rx percocet PRN pain, hydrochlorothiazide 25mg x 4 days for hyperkalemia Disposition: Discharge. Patient counseled regarding diagnostic impression, treatment plan. Patient given ED strict return precautions to return for continuation, worsening, or development of new symptoms. Instructed to f/u w/ PCP regarding symptoms today. Patient verbalized understanding. He is given strict instructions to discontinue the hydrochlorothiazide should he have any lightheadedness or syncope. Lab Data: Labs: Lab Results 07/16/21 07/16/21 07/16/21 18:36 18:36 19:15 WBC 13.4 10^3/uL H 10 ^3/uL (4.0-10.0) RBC 3.50 10^6/uL L 10 ^6/uL (4.1-5.3) Hgb 11.4 g/dL L g/dL (11.7-16.6) Hct 34.8 % L % (42.0-52.0) MCV 99.4 fl H fl (80-94) MCH 32.6 pg pg (28.0-34.0) MCHC 32.8 g/dL g/dL (30.0-36.0) RDW 14.0 % % (12.1-15.1) Plt Count 396 10^3/cmm 10^3 /cmm (130-400) MPV 9.1 fL fL (7.4-10.4) Neut % (Auto) 83.2 % % Lymph % (Auto) 4.9 % % [place] % (Auto) 10.3 % % Eos % (Auto) 0.7 % % Baso % (Auto) 0.2 % % Neut # (Auto) 11.11 10^3/uL H 1 0^3/uL (1.8-7.7) Lymph # (Auto) 0.7 10^3/uL L 10^ 3/uL (0.8-4.8) [place] # (Auto) 1.4 10^3/uL H 10^ 3/uL (0.2-0.9) Eos # (Auto) 0.1 10^3/uL 10^3/ uL (0.0-0.8) Baso # (Auto) 0.0 10^3/uL 10^3/ uL (0.0-0.1) Nucleated RBC % (a uto) 0 % % Nucleated RBCs # 0.0 /100WBC /100W BC Sodium 136 mmol/L mmol/L (136-145) Potassium 5.5 mmol/L H mmol /L (3.5-5.1) Chloride 100 mmol/L mmol/L (98-107) Carbon Dioxide 24 mmol/L mmol/L (22-29) Anion Gap 17.5 (5-19) BUN 31 mg/dL H mg/dL (8-23) Creatinine 1.8 mg/dL H mg/dL (0.7-1.2) GFR Calculation Not Reportable Glucose 87 mg/dL mg/dL (65-115) Calculated Osmolal ity 288 mOsm/kg mOsm/ kg (285-295) Calcium 8.5 mg/dL mg/dL (8.5-10.5) Total Bilirubin 0.3 mg/dL mg/dL (0.15-1.2) AST 15 U/L U/L (0-40) ALT 16 U/L U/L (0-41) Alkaline Phosphata se 85 IU/L IU/L (40-130) Total Protein 6.4 g/dL L g/dL (6.6-8.7) Albumin 3.2 g/dL L g/dL (3.5-5.2) Globulin 3.2 g/dL g/dL (1.3-4.6) Lipase 47 U/L U/L (13-60) Urine Color Yellow (Yellow) Urine Appearance Clear (CLEAR) Urine pH 5 (5-7) Ur Specific Gravit y 1.015 (1.005-1.030) Urine Protein Neg (Negative) Urine Glucose (UA) Norm (Normal) Urine Ketones Negative (Negative) Urine Blood 2+ H (Negative) Urine Nitrate Negative (Negative) Urine Bilirubin Neg (Negative) Urine Urobilinogen Norm mg/dL mg/dL (Negative) Ur Leukocyte Patricia ase Negative (Negative) Urine RBC 0-4 /hpf H /hpf (0-2) Urine WBC None /hpf /hpf (0-5) Ur Squamous Epith Cells None /hpf /hpf (0-5) Amorphous Sediment Not Reportable Urine Bacteria None /hpf /hpf (NONE) Imaging Data^: Other Imaging: Radiologist's impression: [facility] [id number] Scan ReportSigned Patient: Jorge Odom #: [id number]: 1940Acct#:[id number]/Sex: 80 / MADM Date: 07/16/21Loc: ERRoom/Bed:Attending Dr: Ordering Provider/Ordering MD: Aly Mejía MD Date of Service: 07/16/21 Procedure(s): CT abdomen pelvis w con* [id number] Accession Number(s): [id number] Report Number: [id number] PROCEDURE INFORMATION: Exam: CT Abdomen And Pelvis With Contrast Exam date and time: 07/16/2021 6:00 PM Age: 80 years old Clinical indication: Abdominal pain; Flank; Left; Prior surgery; Surgery type: Hernia, appy; Additional info: Eval L flank pain TECHNIQUE: Imaging protocol: Computed tomography of the abdomen and pelvis with contrast. Sagittal and coronal reformatted images were created and reviewed. Radiation optimization: All CT scans at this facility use at least one of these dose optimization techniques: automated exposure control; mA and/or kV adjustment per patient size (includes targeted exams where dose is matched to clinical indication); or iterative reconstruction. Contrast material: VISI 320; Contrast volume: 95 ml; Contrast route: INTRAVENOUS (IV); COMPARISON: CT chest w con* [id number] 06/29/2020 9:33 AM RADIATION DOSE METRICS: Total DLP (mGy-cm): 663.91 FINDINGS: Lungs: Xrom-at-uxxqvdir centrilobular emphysematous changes in the visualized lungs. 2 nodules in the visualized right lower lobe. The larger has an average measurement of 6 mm (series 2, image 11). These are stable dating back to 06/29/2020. Pleural spaces: No pleural effusion. Heart: Visualized heart is normal in size. Liver: The liver is unremarkable. Gallbladder and bile ducts: The gallbladder is unremarkable. No biliary ductal dilatation. Pancreas: The pancreas is unremarkable. No pancreatic ductal dilatation. Spleen: The spleen is unremarkable. Adrenal glands: The right and left adrenal glands are unremarkable. Kidneys and ureters: Subcentimeter hypodense foci in both right and left kidneys that are too small to characterize, however likely represent small cysts. 1.7 cm cyst in the right kidney. 2 simple cysts in the left kidney, the larger measures 2.1 cm. The right ureter is unremarkable. 3.9 mm stone at the left ureterovesicular junction with severe left hydroureteronephrosis and moderate in left perinephric/periureteral inflammation. Stomach and bowel: Numerous diverticula in the descending colon and sigmoid colon. No evidence for diverticulitis. No acute abnormality in the small bowel. The stomach is collapsed, which can limit evaluation. No focal abnormality in the stomach otherwise. Appendix: Appendix not definitely visualized. No inflammatory changes in the pericecal region however. Intraperitoneal space: Small amount of free fluid in the pelvis. Vasculature: Moderate atherosclerotic changes in the visualized arteries. 3.0 x 3.2 cm infrarenal abdominal aortic aneurysm (series 2, image 28). The aneurysm does not involve the iliac arteries. No evidence for aneurysm rupture. Lymph nodes: No lymphadenopathy. Urinary bladder: Diffuse, moderate wall thickening of the bladder. Reproductive: The prostate gland is markedly enlarged. Bones/joints: Moderate degenerative changes at both the right and left hips. Bridging anterior osteophytes at the right and left sacroiliac joints, consistent with degenerative change. Multilevel degenerative changes of varying severity in the visualized spine. Bones are diffusely osteopenic. Soft tissues: No acute abnormality in the extra-abdominal soft tissues. CT/CT abdomen pelvis w con* [id number] IMPRESSION: 1. 3.9 mm stone at the left ureterovesicular junction with severe left hydroureteronephrosis and moderate in left perinephric/periureteral inflammation. 2. 2 nodules in the visualized right lower lobe. The larger has an average measurement of 6 mm (series 2, image 11). These are stable dating back to 06/29/2020. Stable pulmonary nodule(s) for which no further follow-up is recommended. (Reference: Pinky) 3. Diffuse, moderate wall thickening of the bladder. In the correct clinical setting, this may suggest cystitis. Recommend correlation with laboratory findings. Alternatively, this may be secondary to chronic outlet obstruction. 4. Small amount of free fluid in the pelvis. 5. Descending colon and sigmoid colon diverticulosis. No evidence for diverticulitis. 6. Small infrarenal abdominal aortic aneurysm. 7. Incidental/nonacute findings are listed in the report. COMMENTS: Consistent with the [employer] [employer]'s Incidental Findings Committee white paper (J Am Juno Radiol 2018): Any incidental renal lesion less than 1 cm or classified as too small to characterize, or any incidental cystic renal lesion characterized as simple-appearing, is likely benign. No follow-up imaging is recommended for these lesions per consensus recommendations based on imaging criteria. REFERENCES: Pinky Ordaz et al. Guidelines for Management of Incidental Pulmonary Nodules Detected on CT Images: From the Fleischner Society 2017. Radiology. 2017;284(1):228-243. Dictated By:Lis Leon MDSigned By:Lis Leon MDSigned Date/Time:07/16/21 2007DD/ 1800 Discharge Plan Discharge Patient Disposition: Home Clinical Impression: Acute flank pain, Hydronephrosis, Renal colic, Acute kidney injury, Hyperkalemia Condition: Stable Prescriptions: New Percocet 5-325 mg tablet 1 tab PO Q8H PRN (Reason: pain) 3 Days Qty: 9 RF: 0 hydrochlorothiazide 25 mg tablet 25 mg PO DAILY 4 Days Qty: 4 RF: 0 Discontinued acetaminophen [Tylenol Extra Strength] 500 mg tablet 1,000 mg PO Q4H PRN (Reason: Pain) RF: 0 No Action escitalopram oxalate [Lexapro] 10 mg tablet 5 mg PO QAM RF: 0 albuterol sulfate [ProAir HFA] 90 mcg/actuation HFA aerosol inhaler 2 puff INHALATION Q6H PRN (Reason: Shortness Of Breath) RF: 0 Trelegy Ellipta 100-62.5-25 mcg blister with device 1 inh INHALATION QAM RF: 0 meclizine 25 mg tablet 25 mg PO Q6H PRN (Reason: Dizziness) RF: 0 duloxetine [Cymbalta] 20 mg capsule,delayed release(DR/EC) 20 mg PO BID RF: 0 atorvastatin 40 mg tablet 40 mg PO QAM Qty: 90 RF: 3 carvedilol 3.125 mg tablet 3.125 mg PO BID Qty: 180 RF: 3 clopidogrel 75 mg tablet 75 mg PO DAILY Qty: 90 RF: 3 aspirin 81 mg tablet,delayed release (DR/EC) 81 mg PO DAILY Qty: 90 RF: 3 oxybutynin chloride 5 mg tablet 5 mg PO DAILY Qty: 30 RF: 6 pantoprazole 40 mg tablet,delayed release (DR/EC) 40 mg PO BID Qty: 30 RF: 0 tamsulosin 0.4 mg capsule See Rx Instructions .ROUTE .COMPLEX Qty: 180 RF: 3 multivitamin Tablet 1 tab PO QAM RF: 0 Vitamin C 1,000 mg Tablet 1,000 mg PO QPM RF: 0 Discharge Orders: Discharge ED (Routine); Ordered 07/16/21 Ordered By: Aly Mejía Referrals: Sulma Alcantara MD [Primary Care Provider] - Discharge Diet: Advance as tolerated Discharge Activity: Increase activity as tolerated Patient Instructions: Renal Colic (ED), Abdominal Pain (ED) Activity Restrictions/Additional Instructions: Please come back if you have any worsening abdominal pain, fever or chills, nausea or vomiting, diarrhea, blood in the stool, inability hold down liquid or solids, or any new concerning complaints. Our operation manager will have you follow-up with Dr. Uriostegui in the next few days. You would be expected to have a phone call with our operation manager who will put you on the schedule. Our operation manager will have you follow-up with primary care provider for your elevated potassium in the next few days. You would be expected to have a phone call with our operation manager who will put you on the schedule. Coding Level of Care Code ED Site Administrator for Jesica Johnson
[2021-07-16 19:22] LABS: Alanine Aminotransferase 16 U/L (0-41); Albumin Level 3.2 g/dL (3.5-5.2); Alkaline Phosphatase 85 IU/L (40-130); Anion Gap 17.5 (5-19); Aspartate Amino Transferase 15 U/L (0-40); Blood Urea Nitrogen 31 mg/dL (8-23); Calcium 8.5 mg/dL (8.5-10.5); Carbon Dioxide 24 mmol/L (22-29); Chloride 100 mmol/L (98-107); Globulin 3.2 g/dL (1.3-4.6); Glucose 87 mg/dL (65-115); Lipase 47 U/L (13-60); Osmolality Calculated 288 mOsm/kg (285-295); Potassium 5.5 mmol/L (3.5-5.1); Sodium 136 mmol/L (136-145); Total Bilirubin 0.3 mg/dL (0.15-1.2); Total Protein 6.4 g/dL (6.6-8.7)
[2021-07-16] MEDS: iodixanol 320 mg/mL 100mL Btl IV (19:28)
[2021-07-16 20:29] LABS: Glucose Urine UA Norm (Normal); Ketones Urine Negative (Negative); Protein Urine Neg (Negative); Specific Gravity, Urine 1.015 (1.005-1.030); Urine Appearance Clear (CLEAR); Urine Color Yellow (Yellow); pH Urine 5 (5-7)
[2021-07-16 20:30] LABS: Add Urine Culture? No; Add Urine Microscopic? YES; Bilirubin Urine Neg (Negative); Blood Urine 2+ (Negative); Leukocyte Esterase Urine Negative (Negative); Nitrate Urine Negative (Negative); RBC Urine 0-4 /hpf (0-2); Urobilinogen Urine Norm (Negative)
[2021-07-16] MEDS: FUROsemide 10 mg/mL SDV 4mL 40 MG IVP (21:01)
[2021-07-16 21:03] VITALS: BP 151/74; PULSE 65; RESP 17; O2SAT 100
--- NOTE | 2021-07-16 21:17 | ECG_ITS ---
[facility] Test Date: 2021-07-16 Pat Name: Jorge Odom Department: Room: Gender: Male General Accounting Manager: : 1940 Requested By: Aly Mejía Order Number: [id number] Hortencia MD: Rama Condon M.D. Measurements Intervals [place] Rate: 62 P: 61 AR: 145 QRS: 249 QRSD: 121 T: 120 QT: 388 QTc: 397 Interpretive Statements SINUS RHYTHM RIGHT AXIS DEVIATION [QRS AXIS > 100] RIGHT BUNDLE BRANCH BLOCK POSSIBLE SEPTAL MYOCARDIAL INFARCTION , PROBABLY OLD [30 ms Q WAVE IN V1/V2] MARKED ST DEPRESSION, CONSIDER SUBENDOCARDIAL INJURY [0.2+ mV ST DEPRESSION] ACUTE HI Compared to ECG 03/23/2021 10:53:37 Myocardial infarct finding now present ST (T wave) deviation now present Sinus bradycardia no longer present Left posterior fascicular block no longer present T-wave abnormality no longer present Possible ischemia no longer present Electronically Signed On 07-18-2021 20:38:25 DISABILITY LIAISON OFFICER by Rama Condon M.D. [email or web address]
[2021-07-16 23:24] LABS: Anion Gap 15.3 (5-19); Blood Urea Nitrogen 28 mg/dL (8-23); Calcium 8.3 mg/dL (8.5-10.5); Carbon Dioxide 27 mmol/L (22-29); Chloride 99 mmol/L (98-107); Glucose 83 mg/dL (65-115); Osmolality Calculated 287 mOsm/kg (285-295); Potassium 5.3 mmol/L (3.5-5.1); Sodium 136 mmol/L (136-145)
--- NOTE | 2021-07-17 09:52 | DCPLANNER ---
manager packaging had message to schedule a follow up appointment for patient with Dr. Uriostegui. manager packaging emailed patients information to Ever Tompkins and Julie at the office of Dr. Uriostegui. Patients information will be printed and reviewed. Clinic will call patient with appointment information.
--- NOTE | 2021-07-17 13:44 | DCPLANNER ---
green house manager had message to speak with patient about scheduling a follow up appointment for patient with primary care physician. green house manager called phone number [phone], unable to speak with patient at this time, a voicemail was left for patient to return shoe caser phone call.
--- NOTE | 2021-07-25 09:13 | DCPLANNER ---
Patient had a follow up appointment scheduled for 07.18.[address] Uriostegui - patient did attend appointment.
== END 2021-07-16 23:00 | disposition home or self-care (01) ==
PROVIDERS: Nurse Practitioner Family; Emergency Provider Emergency Medicine; PCP Internal Medicine
DX: N13.30 Unspecified hydronephrosis (principal); N23 Unspecified renal colic; N17.9 Acute kidney failure, unspecified; E87.5 Hyperkalemia; Z79.82 Long term (current) use of aspirin; Z79.02 Long term (current) use of antithrombotics/antiplatelets; J44.9 Chronic obstructive pulmonary disease, unspecified; F17.210 Nicotine dependence, cigarettes, uncomplicated
CPT/HCPCS: 36415; 74177; 80048; 80053; 81001; 83690; 85025; 93005; 96361; 96374; 99284; J1940; J7040; Q9967

== ENCOUNTER 2021-07-18 07:48 | Outpatient (CLI) | payer MEDICARE, SELFPAY ==
--- NOTE | 2021-07-18 07:30 | XR_ITS ---
WS: [id number] KUB, AP view, 07/18/2021 Clinical Data: STONES Comparison: CT abdomen and pelvis, 07/16/2021. Findings: No abnormal intraabdominal masses or calcifications are seen. There is no dilatated small bowel or ev idence of obstruction. There is minimal residual contrast in the bladder and right kidney from the CT scan of 2 days ago. Th ere is a large amount of intestinal and colon gas obscuring detail over both kidneys. There are phleb oliths in the true pelvis. The 0.4 cm left ureteral vesicle junction calculus seen on the CT abdomen and pelvis is not identified. XR/XR KUB [id number] Impression: Large amount of intestinal and colonic gas obscuring detail over the kidneys an d pelvis.
[2021-07-18 08:49] LABS: Blood Urea Nitrogen 39 mg/dL (8-23); Calcium 9.5 mg/dL (8.5-10.5); Carbon Dioxide 23 mmol/L (22-29); Chloride 101 mmol/L (98-107); Glucose 94 mg/dL (65-115); Osmolality Calculated 291 mOsm/kg (285-295); Sodium 136 mmol/L (136-145)
[2021-07-18 08:54] LABS: Anion Gap 17.9 (5-19); Potassium 5.9 mmol/L (3.5-5.1)
== END 2021-07-18 07:49 | disposition home or self-care (01) ==
PROVIDERS: PCP Internal Medicine; Visit Provider Urology
DX: N13.30 Unspecified hydronephrosis (principal); R10.9 Unspecified abdominal pain; N20.9 Urinary calculus, unspecified
CPT/HCPCS: 74018; 80048; 81003

== ENCOUNTER 2021-07-18 10:07 | Day surgery (SDC) | payer MEDICARE, SELFPAY ==
[2021-07-18] VITALS (10 sets, daily range): BP systolic 103–132; BP diastolic 55–69; PULSE 73–92; RESP 14–18; TEMP 36.2–37.1; O2SAT 96–99; BMI 18.4
--- NOTE | 2021-07-18 | SCC_ITS ---
Procedure Done: 1. Cystoscopy with left retrograde ureteropyelogram 2. LEFT: Ureteroscopy, stone extraction, stent placement 3. Fulguration of left trigone TCCA, MEDIUM 23.2 seconds of fluoroscopic guidance, for a cumulative dose of 2.45 mGy, was provided to Dr. Uriostegui by the radiology department. C-arm images of the abdomen were saved for the patient's permanent record. TAIWOD
--- NOTE | 2021-07-18 11:32 | SC_ITS ---
WS: [id number] C-arm fluoroscopy for left ureteral stent placement, 07/18/2021 Clinical Data: Left distal ureteral stone, ureteroscopy Comparison: None. Findings: A left ureteral catheter has been inserted by Dr. Uriostegui. SC/C-arm FL for Urology Impression: Left ureteral stent.
[2021-07-18] MEDS: sodium chloride 0.9% 1,000 ML 30 ML IV (11:41)
--- NOTE | 2021-07-18 11:45 | W.PM.OPSUD ---
Surgery/Procedure H&P Update DATE OF PROCEDURE: July 18, 2021 DATE H&P PERFORMED: 07/18/21 H&P UPDATE INFORMATION: I have reviewed H&P completed within last 30 days, I have examined patient prior to procedure, No changes to prior documentation and H&P is in [facility] [place] on date indicated CHANGES TO PREVIOUS DOCUMENTATION: He had an EKG ordered for today but it was discovered that he had one just 2 days ago. PREOP DIAGNOSIS: Left ureteral stone with increasing creatinine and potassium PRIMARY INDICATION FOR PROCEDURE: Refractory left distal ureteral stone with rising creatinine and potassium. PLANNED PROCEDURE: Operation Date: 07/18/21 11:00 Proposed Procedures p Cystoscopy 78832 [id number] N20.1(Not Applicable) - Bobby Uriostegui MD s Retrograde Pyelogram(Not Applicable) - Bobby Uriostegui MD s Ureteral Stent Placement(Left) - MD ravi Daly Laser Lithotripsy(Left) - Bobby Uriostegui MD
--- NOTE | 2021-07-18 11:47 | P.OP_ITS ---
Operative Report Date of procedure: July 18, 2021 Pre-op Diagnosis: Left ureteral stone with increasing creatinine and potassium Post-op diagnosis: same Procedure Done: 1. Cystoscopy with left retrograde ureteropyelogram 2. LEFT: Ureteroscopy, stone extraction, stent placement 3. Fulguration of left trigone TCCA, MEDIUM Surgeon: Moody Anesthesia: General Estimated blood loss: Minimal Urine output: Not measured Complications: None Condition: stable Disposition: PACU Brief History: Mr. Odom is a very pleasant 80-year-old white male who was recently diagnosed with a left distal ureteral stone. His baseline creatinine of 1.2 had increased to 2.2. Potassium was 5.5 but he was asymptomatic. Was treated conservatively initially with the hope that he would pass the stone and not require anesthesia for surgery. He does have severe COPD and a history of atherosclerotic coronary vascular disease and peripheral vascular disease. Unfortunately did not pass a stone and he presented to the office today with a creatinine increased to 2.3 and a potassium 5.9. It was decided based on those findings to proceed with at least a stent placement on the left side and hopefully definitive treatment of the stone. He does have a very large prostate which may complicate access to the ureteral orifice. Further complicating his the fact that he is on aspirin and Plavix for coronary artery disease status post stenting. Procedure: After urgent evaluation examination and obtaining of informed consent he was taken to the operating suite on 07/18/2021 where general anesthesia was administered without difficulty after appropriate timeout was performed, SCDs confirmed to be functioning, preoperative antibiotics administered, beta-eleni protocol confirmed. Prepped and draped in usual sterile fashion in dorsolithotomy position paying careful attention to avoiding pressure points. 21 Martiniquais cystoscope with 30 degree lens was introduced into the urethra meatus and advanced into the bladder to videoscopy. The urethra was normal. Prostate was huge. Bladder moderately trabeculated. Orifices were identified and accessible. 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 It appeared to be well differentiated and papillary. An 8 Martiniquais cone-tip catheter was intubated into the left ureteral orifice for a LEFT RETROGRADE URETEROPYELOGRAM: Contrast was injected showing filling defect consistent with the stone in the area of the left distal ureter and it migrated slightly proximally. With that position change a large amount of inspissated fluid drained spontaneously. The ureter proximal to that point was moderately dilated. No other filling defects identified. A flexible tip guidewire was then advanced up the ureter easily bypassing the stone and then a 15 Martiniquais 4 cm balloon was utilized to dilate the ureteral intramural tunnel with no waist at 4 makenzie of pressure. The wire was secured to the drapes as a safety wire and a 7.5 Martiniquais offset semirigid ureteroscope was advanced next to the guidewire of the left ureter where the stone was encountered in its expected position, secured with grasping forceps and withdrawn without tension. It was dropped into the bladder. The scope was then passed again slightly of the ureter and no other stones were seen. There was some typical dilation trauma so was decided to leave a stent indwelling. Prior to stent placement a [employer] cautery probe was utilized to fulgurate the medium sized TCCA papillary tumor on the superior aspect of the trigone above the orifice. Special care was made to avoid cautery near the wire. This was accomplished. The tumor was completely fulgurated down to the base with no significant bleeding. The bladder was inspected there was some clot that had formed from prostatic oozing and this was Ellik evacuated with no further bleeding. The stone was not in the evacuated material and it was then visualized with the cystoscope. The bladder was drained through the cystoscope with the scope positioned next to the stone but I never could see the stone again. Either at passed into the drapes or through the perineal opening of the drapes or remained in the bladder. It was very small and expected should pass easily. He did not have a significantly intravesically protruding median lobe that would form a lobster trap type ef fect. The cystoscope was then backloaded over the guidewire and a 6 Martiniquais by 28 cm double-pigtail stent was advanced over the guidewire through the cystoscope into appropriate position as confirmed via fluoroscopy and cystoscopy. Stent was confirmed to be draining. On final inspection the tumor fulguration site was confirmed to be hemostatic. The bladder was again inspected and the stone again was not identified. No more clots or active bleeding was identified. The procedure was completed. He tolerated procedure well without complications and was awakened in the operating room and returned to the recovery room in stable condition. PLANS: 1. Anticipate discharge from outpatient surgery 2. Follow-up: 7 to 10 days for cystoscopy and stent removal, BMP to be performed at the same time. 3. He will need to have SURVEILLANCE CYSTOSCOPY program beginning sometime in the next couple months 4. He will be provided a strainer encouraged to strain to see if he passes the stone that have been dropped into the bladder. It was <4 mm in size. Associated Problem List Diagnoses (1) Renal colic: (2) Left ureteral calculus: (3) Hyperkalemia: (4) Acute kidney injury:
--- NOTE | 2021-07-18 11:49 | ANES.PREANE2 ---
Documented by User: Kim Mixon CRNA 07/18/21 12:33 Pre-Anesthetic Assessment Pre-Anesthetic Assessment: Height/Weight: Height 1.75 m Weight 56.699 kg Temp Pulse Resp BP Pulse Ox 98.8 F 73 17 132/59 96 07/18/21 11:19 07/18/21 11:19 07/18/21 11:19 07/18/21 11:19 07/18/21 11:19 Preop Diagnosis: Left ureteral stone with increasing creatinine and potassium Proposed Procedure: Operation Date: 07/18/21 11:00 Proposed Procedures p Cystoscopy [id number] N20.1(Not Applicable) - Bobby Uriostegui MD s Retrograde Pyelogram(Not Applicable) - Bobby Uriostegui MD s Ureteral Stent Placement(Left) - MD ravi Daly Laser Lithotripsy(Left) - Bobby Uriostegui MD Familial anesthetic complications: none Last intake: Intake Last Liquid Date 07/18/21 Last Liquid Time 06:00 Last Solid Date 07/17/21 Last Solid Time 20:00 Social: Social History: Tobacco Packs per day: 1 Pack years: 64 Exam: Pre-Anes Outpt Exam: alert, oriented x 3, clear to auscultation bilaterally and regular rate & rhythm Airway: Submandibular: WNL Cervical ROM: WNL MP: 2 Dentition: False History/ROS: No significant history except as noted Pulmonary: Pulmonary: COPD and SOB Comments: 2 L NC with activity CV/HEM: CV/HEM: [place] Comments: March 2021 : Comments: Acute Kidney Injury. Hepatic: Hepatic: None reported GI: GI: None reported Metabolic: Metabolic: Hyperlipidemia Musc/skel: Musc/skel: None reported Anesthetic Plan: ASA status: 3 Anesthesia: General Risk of > 500 ml blood loss (7ml/kg in children): No Meds/Allergies Current Medications: Current Medications Generic Name Dose Route Start Last Admin Trade Name Freq PRN Reason Stop Dose Admin Sodium Chloride 1,000 mls @ 30 ml s/hr 07/18/21 11:45 07/18/21 11:41 Sodium Chloride 0.9% IV 07/19/21 11:44 30 mls/hr .Q24H ADDY Administration PFSH Anesthesia PFSH: Medical History Benign prostatic hyperplasia with lower urinary tract symptoms Chronic prostatitis COPD (chronic obstructive pulmonary disease) Elevated PSA Surgical History History of amputation of toe History of appendectomy History of inguinal hernia repair right History of tonsillectomy S/P trigger finger release Status post left inguinal hernia repair Status post right inguinal hernia repair (11/21/20) Recurrent Family History Mother , at age 84-leukemia No problems noted. Father , at age 64--heart attack No problems noted. Social History Quit status (tobacco): has tried quititng Alcohol intake: never Marital status: Current occupational status: employed History of recent travel: No Data Anesthesia Cardiac Studies: Echocardiogram 03/22/21 Documented by User: Angel Rodriguez 07/18/21 13:10 PFSH Anesthesia PFSH: Medical History Benign prostatic hyperplasia with lower urinary tract symptoms Chronic prostatitis COPD (chronic obstructive pulmonary disease) Elevated PSA Surgical History History of amputation of toe History of appendectomy History of inguinal hernia repair right History of tonsillectomy S/P trigger finger release Status post left inguinal hernia repair Status post right inguinal hernia repair (11/21/20) Recurrent Family History Mother , at age 84-leukemia No problems noted. Father , at age 64--heart attack No problems noted. Social History Quit status (tobacco): has tried quititng Alcohol intake: never Marital status: Current occupational status: employed History of recent travel: No Data Anesthesia Cardiac Studies: Echocardiogram 03/22/21
[2021-07-18] MEDS: levofloxacin-dextrose 5% 250 MG/50 ML PREMIX 50 MG IV (11:57)
[2021-07-18] MEDS: iohexol 300 mg/mL 50 mL Btl (OR ONLY) XX (12:26)
--- NOTE | 2021-07-18 13:31 | ANE.PACU2 ---
Inpatient post-anesthesia follow up: Airway intact: Yes Vital signs: Temperature 98.3 F Pulse Rate 87 Respiratory Rate 16 Blood Pressure 129/66 Pulse Oximetry 98 Oxygen Delivery Me thod Nasal Cannula Oxygen Flow Rate 3 Fraction of Inspir ed Oxygen Hydration adequate: Yes Nausea and vomiting: No Pain level: 2 Mental status: Baseline
== END 2021-07-18 14:38 | disposition home or self-care (01) ==
PROVIDERS: PCP Internal Medicine; Visit Provider Urology
PROC: 0TJB8ZZ Inspection of Bladder, Via Natural or Artificial Opening Endoscopic (ICD-10-PCS; CPT 52000; principal; 2021-07-18 11:00)
PROC: (CPT 74420; 2021-07-18 11:00)
PROC: (CPT 50605; 2021-07-18 11:00)
DX: N20.1 Calculus of ureter (principal); N23 Unspecified renal colic; E87.5 Hyperkalemia; N17.9 Acute kidney failure, unspecified; I25.2 Old myocardial infarction; Z95.5 Presence of coronary angioplasty implant and graft; Z79.02 Long term (current) use of antithrombotics/antiplatelets; Z79.82 Long term (current) use of aspirin; F17.210 Nicotine dependence, cigarettes, uncomplicated; J44.9 Chronic obstructive pulmonary disease, unspecified; Z99.81 Dependence on supplemental oxygen; N13.30 Unspecified hydronephrosis; R10.9 Unspecified abdominal pain; N20.9 Urinary calculus, unspecified
CPT/HCPCS: 52235; 52332; 52352; 74018; 76000; 80048; 81003; C2625; J1100; J1956; J2405; J2704; J3010; J3490; J7030

== ENCOUNTER 2021-07-18 19:11 | Emergency (ER) | payer MEDICARE, SELFPAY ==
[2021-07-18 19:16] VITALS: BP 140/74; PULSE 114; RESP 26; TEMP 36.4; O2SAT 97; BMI 18.4
--- NOTE | 2021-07-18 19:25 | W.ED.MALEGU ---
HPI - Male Genitourinary General: Chief complaint: Urogenital-Male Stated complaint: Cant Urinate\Pain Time Seen by Provider: 07/18/21 19:21 History of Present Illness: HPI Narrative: Patient has stent placed today and now has urinary retention. Complaint: other (Unable to urinate) Onset (ago): hour(s) Duration: constant and progressively worsening Review of Systems Const: Denies: fever(s) or chills Resp: Reports: dyspnea (Chronic) : Reports: other (Unable to urinate had stent placed today) Psych: Denies: anxiety or depression PFS ED PFSH: Medical History Benign prostatic hyperplasia with lower urinary tract symptoms Chronic prostatitis COPD (chronic obstructive pulmonary disease) Elevated PSA Surgical History History of amputation of toe History of appendectomy History of inguinal hernia repair right History of tonsillectomy S/P trigger finger release Status post left inguinal hernia repair Status post right inguinal hernia repair (11/21/20) Recurrent Family History Mother , at age 84-leukemia No problems noted. Father , at age 64--heart attack No problems noted. Social History Quit status (tobacco): has tried quititng Alcohol intake: never Marital status: Current occupational status: employed History of recent travel: No Physical Exam Const: GENERAL APPEARANCE: cooperative Resp: AUSCULTATION: diminished lung sounds Cardio: RATE: tachycardic GI: PALPATION: Yes Tenderness to palpation present (GI) (Bladder) Psych: COMMON NORMALS: cooperative Course Vital Signs: Vital signs: Vital Signs Temperature 97.5 F L 07/18/21 19:16 Pulse Rate 114 H 07/18/21 19:16 Respiratory Rate 26 H 07/18/21 19:16 Blood Pressure 140/74 07/18/21 19:16 Pulse Oximetry 97 07/18/21 19:16 Discharge Plan Discharge Prescriptions: No Action albuterol sulfate [ProAir HFA] 90 mcg/actuation HFA aerosol inhaler 2 puff INHALATION Q6H PRN (Reason: Shortness Of Breath) RF: 0 Trelegy Ellipta 100-62.5-25 mcg blister with device 1 inh INHALATION QAM RF: 0 meclizine 25 mg tablet 25 mg PO Q6H PRN (Reason: Dizziness) RF: 0 atorvastatin 40 mg tablet 40 mg PO QAM Qty: 90 RF: 3 carvedilol 3.125 mg tablet 3.125 mg PO BID Qty: 180 RF: 3 clopidogrel 75 mg tablet 75 mg PO DAILY Qty: 90 RF: 3 aspirin 81 mg tablet,delayed release (DR/EC) 81 mg PO DAILY Qty: 90 RF: 3 pantoprazole 40 mg tablet,delayed release (DR/EC) 40 mg PO BID Qty: 30 RF: 0 tamsulosin 0.4 mg capsule See Rx Instructions .ROUTE .COMPLEX Qty: 180 RF: 3 oxycodone-acetaminophen [Percocet] 5-325 mg tablet 1 tab PO Q8H PRN (Reason: pain) 3 Days Qty: 9 RF: 0 hydrochlorothiazide 25 mg tablet 25 mg PO DAILY 4 Days Qty: 4 RF: 0 multivitamin Tablet 1 tab PO QAM RF: 0 ascorbic acid (vitamin C) [Vitamin C] 1,000 mg Tablet 1,000 mg PO QPM RF: 0 Coding Level of Care Code ED Carbon Sequestration Plant Operator for Jesica Johnson
[2021-07-18 20:01] VITALS: PULSE 104; RESP 22; O2SAT 96
[2021-07-18 20:05] LABS: Add Urine Microscopic? YES; Bacteria Urine TRACE /hpf; Bilirubin Urine Neg (Negative); Blood Urine Neg (Negative); Glucose Urine UA Norm (Normal); Ketones Urine Negative (Negative); Leukocyte Esterase Urine 2+ (Negative); Nitrate Urine Negative (Negative); Protein Urine 3+ (Negative); RBC Urine TOO NUMEROUS TO CNT /hpf (0-2); Urine Appearance Cloudy (CLEAR); Urine Color Red (Yellow); Urobilinogen Urine Norm (Negative); pH Urine 8 (5-7)
[2021-07-18 20:06] LABS: Add Urine Culture? Yes
== END 2021-07-18 19:53 | disposition home or self-care (01) ==
PROVIDERS: Emergency Provider Nurse Practitioner Family
DX: R39.198 Other difficulties with micturition (principal); Z79.02 Long term (current) use of antithrombotics/antiplatelets; Z79.82 Long term (current) use of aspirin; J44.9 Chronic obstructive pulmonary disease, unspecified; N13.30 Unspecified hydronephrosis; R10.9 Unspecified abdominal pain; N20.9 Urinary calculus, unspecified; N20.1 Calculus of ureter; N23 Unspecified renal colic; E87.5 Hyperkalemia; N17.9 Acute kidney failure, unspecified; I25.2 Old myocardial infarction; Z95.5 Presence of coronary angioplasty implant and graft; F17.210 Nicotine dependence, cigarettes, uncomplicated; Z99.81 Dependence on supplemental oxygen
CPT/HCPCS: 51702; 74018; 76000; 80048; 81001; 81003; 87086; 99283; C2625; J1100; J1956; J2704; J3490; J7030

== ENCOUNTER 2021-07-23 15:27 | Emergency (ER) | payer MEDICARE, SELFPAY ==
[2021-07-23 16:25] VITALS: BP 110/72; PULSE 65; RESP 15; TEMP 36.6; O2SAT 100; BMI 19.0
--- NOTE | 2021-07-23 16:44 | W.ED.GENADLT ---
HPI - General Adult General: Chief complaint: General Medical Stated complaint: Pain and leaking at the entrance of Cath Time Seen by Provider: 07/23/21 16:34 History of Present Illness: HPI narrative: Patient would like Harding removed. Still having slight blood in the urine. Appetite slightly decreased. complaint: Harding discomfort Onset (ago): day(s) Severity: mild Associated symptoms: Reports no associated symptoms Review of Systems Const: Denies: fever(s), chills or change in weight : Reports: other (Harding is uncomfortable) Psych: Denies: anxiety PFSH ED PFSH: Medical History Benign prostatic hyperplasia with lower urinary tract symptoms Chronic prostatitis COPD (chronic obstructive pulmonary disease) Elevated PSA Surgical History History of amputation of toe History of appendectomy History of inguinal hernia repair right History of tonsillectomy S/P trigger finger release Status post left inguinal hernia repair Status post right inguinal hernia repair (11/21/20) Recurrent Family History Mother , at age 84-leukemia No problems noted. Father , at age 64--heart attack No problems noted. Social History Quit status (tobacco): has tried quititng Alcohol intake: never Marital status: Current occupational status: employed History of recent travel: No Physical Exam Const: COMMON NORMALS: no acute distress Resp: COMMON NORMALS: normal respiratory effort Psych: COMMON NORMALS: mental status grossly normal Course Vital Signs: Vital signs: Vital Signs Temperature 97.9 F 07/23/21 16:25 Pulse Rate 65 07/23/21 16:25 Respiratory Rate 15 07/23/21 16:25 Blood Pressure 110/72 07/23/21 16:25 Pulse Oximetry 100 07/23/21 16:25 Discharge Plan Discharge Patient Disposition: Home Clinical Impression: Complication of Harding catheter Qualifiers: Encounter type: initial encounter Qualified Code(s): T83.9XXA - Unspecified complication of genitourinary prosthetic device, implant and graft, initial encounter Condition: Stable Prescriptions: New cephalexin 500 mg capsule 500 mg PO Q8H 7 Days Qty: 21 RF: 0 No Action albuterol sulfate [ProAir HFA] 90 mcg/actuation HFA aerosol inhaler 2 puff INHALATION Q6H PRN (Reason: Shortness Of Breath) RF: 0 Trelegy Ellipta 100-62.5-25 mcg blister with device 1 inh INHALATION QAM RF: 0 meclizine 25 mg tablet 25 mg PO Q6H PRN (Reason: Dizziness) RF: 0 atorvastatin 40 mg tablet 40 mg PO QAM Qty: 90 RF: 3 carvedilol 3.125 mg tablet 3.125 mg PO BID Qty: 180 RF: 3 clopidogrel 75 mg tablet 75 mg PO DAILY Qty: 90 RF: 3 aspirin 81 mg tablet,delayed release (DR/EC) 81 mg PO DAILY Qty: 90 RF: 3 pantoprazole 40 mg tablet,delayed release (DR/EC) 40 mg PO BID Qty: 30 RF: 0 tamsulosin 0.4 mg capsule See Rx Instructions .ROUTE .COMPLEX Qty: 180 RF: 3 multivitamin Tablet 1 tab PO QAM RF: 0 ascorbic acid (vitamin C) [Vitamin C] 1,000 mg Tablet 1,000 mg PO QPM RF: 0 Discharge Orders: Discharge ED (Routine); Ordered 07/23/21 Ordered By: Tez Magallon Referrals: Sulma Alcantara MD [Primary Care Provider] - Discharge Diet: Usual diet Activity Restrictions/Additional Instructions: Take medicine as directed. Follow-up with Dr. Uriostegui as scheduled on Thursday. If unable to urinate later this evening or tomorrow please return to the ER. or follow-up your family medical provider Coding Level of Care Code ED Cell Geneticist for Jesica Johnson
[2021-07-23] MEDS: cephALEXin 500 mg Capsule PO (18:01)
[2021-07-23 18:36] VITALS: BP 112/78; PULSE 72; RESP 18; O2SAT 97
[2021-07-23 18:41] VITALS: BP 137/79; PULSE 91; RESP 16; O2SAT 97
[2021-07-23 18:56] LABS: Add Urine Microscopic? YES; Bilirubin Urine Neg (Negative); Blood Urine 3+ (Negative); Glucose Urine UA Norm (Normal); Ketones Urine 1+ (Negative); Leukocyte Esterase Urine 2+ (Negative); Nitrate Urine Negative (Negative); Protein Urine 3+ (Negative); Specific Gravity, Urine 1.015 (1.005-1.030); Urine Appearance Cloudy (CLEAR); Urine Color Brown (Yellow); Urobilinogen Urine Neg (Negative); pH Urine 5 (5-7)
[2021-07-23 18:57] LABS: Add Urine Culture? Yes; RBC Urine TOO NUMEROUS TO CNT /hpf (0-2); WBC Urine 0-4 /hpf (0-5)
== END 2021-07-23 18:45 | disposition home or self-care (01) ==
PROVIDERS: Emergency Provider Nurse Practitioner Family; PCP Internal Medicine
DX: T83.9XXA Unspecified complication of genitourinary prosthetic device, implant and graft, initial encounter (principal); Z79.02 Long term (current) use of antithrombotics/antiplatelets; Z79.82 Long term (current) use of aspirin; J44.9 Chronic obstructive pulmonary disease, unspecified
CPT/HCPCS: 81001; 87086; 99283

== ENCOUNTER → 2021-07-29 16:48 | Outpatient (BNVA) | payer MEDICARE, SELFPAY | PROVIDERS: PCP Internal Medicine; Visit Provider Urology | DX: E87.5 Hyperkalemia; N40.1 Benign prostatic hyperplasia with lower urinary tract symptoms | CPT/HCPCS: 80048; 81003 ==

== ENCOUNTER → 2021-08-09 11:34 | Outpatient (BNVA) | payer MEDICARE, SELFPAY | PROVIDERS: PCP Internal Medicine; Visit Provider Urology | DX: N40.1 Benign prostatic hyperplasia with lower urinary tract symptoms (principal) | CPT/HCPCS: 81003 ==

== ENCOUNTER → 2021-10-07 14:17 | Outpatient (BNVA) | payer MEDICARE, SELFPAY | PROVIDERS: PCP Internal Medicine; Visit Provider Internal Medicine | DX: Z09 Encounter for follow-up examination after completed treatment for conditions other than malignant neoplasm (principal); I65.23 Occlusion and stenosis of bilateral carotid arteries; I25.10 Atherosclerotic heart disease of native coronary artery without angina pectoris | CPT/HCPCS: 99214 ==

== ENCOUNTER 2021-10-23 09:01 | Outpatient (CLI) | payer MEDICARE, SELFPAY ==
--- NOTE | 2021-10-23 09:30 | USCV_ITS ---
LeiJorge strange Age: 80 Gender: M : 1940 Exam Date: 10/23/2021 09:17 Ordering Phys: Jonathan Hill M.D ([email or web address]) Technologist: TRICIA [place] [facility] [place]ication: EVAL FOR CAROTID STENOSIS Risk Factors: Previous Vascular Surgery: Right Brachial BP: / Left Brachial BP: / Right Left Velocity (cm/s) Spectral Plaque Velocity (cm/s) Spectral Plaque Syst/Diast Broadening Syst/Diast Broadening 71.00/ 20.10 Prox CCA 56.70 / 13.20 63.10/ 23.70 Mid CCA 56.30 / 11.40 61.30/ 22.80 Distal CCA 54.40 / 10.10 164.30/51.30 Prox ICA / 126.80/42.90 Mid ICA / 110.40/36.80 Distal ICA / 98.10 ECA 170.90 2.32 ICA/CCA Antegrade Vertebral Antegrade 57.50/ 20.60 cm/s 60.70/ 24.80 cm/s Tri Subclavian Tri 66.90 77.00 FINDINGS Comparison:. 11/07/13. New since 2013 is complete occlusion of the left ICA. Diffuse bilateral scattered calcified plaque and intimal thickening throughout the common carotid arteries and extending through the bifurcation. Progression of bilateral plaque since the prior exam. Antegrade vertebral arteries. CONCLUSIONS Complete occlusion left ICA. Right ICA stenosis 50-69%. Dr. Romina Sevilla DO (Electronically Signed) Final Date: 23 October 2021 13:34 S
== END 2021-10-23 09:02 | disposition home or self-care (01) ==
PROVIDERS: PCP Internal Medicine; Visit Provider Internal Medicine
DX: I65.23 Occlusion and stenosis of bilateral carotid arteries (principal)
CPT/HCPCS: 93880

== ENCOUNTER 2021-10-29 15:33 | Outpatient (CLI) | payer MEDICARE, SELFPAY ==
[2021-10-29 18:03] LABS: NT Pro B Type Natriuretic Pept 324 pg/mL (0-450)
== END 2021-10-29 15:34 | disposition home or self-care (01) ==
PROVIDERS: PCP Internal Medicine; Visit Provider Internal Medicine
DX: I25.10 Atherosclerotic heart disease of native coronary artery without angina pectoris (principal); I65.29 Occlusion and stenosis of unspecified carotid artery; J44.9 Chronic obstructive pulmonary disease, unspecified
CPT/HCPCS: 83880

== ENCOUNTER 2021-11-08 20:30 | Observation (INO) | payer MEDICARE, SELFPAY ==
[2021-11-08 20:40] VITALS: BP 111/64; PULSE 105; RESP 20; TEMP 36.8; O2SAT 96; BMI 19.0
--- NOTE | 2021-11-08 20:55 | ECG_ITS ---
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 Measurements Intervals [place] Rate: 93 P: 86 ME: 147 QRS: -90 QRSD: 138 T: 65 QT: 338 QTc: 420 Interpretive Statements SINUS RHYTHM WITH MARKED SINUS ARRHYTHMIA RIGHT BUNDLE BRANCH BLOCK [120+ ms QRS DURATION, UPRIGHT V1, 40+ ms S IN I/aVL/V4/V5/V6] LEFT ANTERIOR FASCICULAR BLOCK [QRS AXIS <= -45, QR IN I, RS IN II] POSSIBLE SEPTAL MYOCARDIAL INFARCTION , PROBABLY OLD [30 ms Q WAVE IN V1/V2] Compared to ECG 07/16/2021 22:21:59 Left anterior fascicular block now present Right-axis deviation no longer present ST (T wave) deviation no longer present Myocardial infarct finding still present Electronically Signed On 11-09-2021 8:13:14 CDT by Yash Mistry M.D. [id number] xiomy
--- NOTE | 2021-11-08 20:55 | XRR_ITS ---
PROCEDURE INFORMATION: Exam: XR Chest Exam date and time: 11/08/2021 9:08 PM Age: 80 years old Clinical indication: Shortness of breath; Prior surgery; Surgery date: 6+ months; Surgery type: Stents; Patient HX: C/O SOB and cp w cardiac and copd HX TECHNIQUE: Imaging protocol: XR of the chest. Views: 1 view. COMPARISON: CT angio chest PE protcl [id number] 03/22/2021 10:02 AM FINDINGS: Lungs: Stable mild hyperinflation of the lungs. Stable scarring diffusely in both lungs. No focal consolidation. No pulmonary edema. Calcified granulomas in the left upper lobe. Pleural spaces: No pleural effusion. No pneumothorax. Heart/Mediastinum: The cardiac silhouette and mediastinal contours are unremarkable. Vasculature: Stable vascular calcifications in the aorta. Bones/joints: Degenerative changes in the spine and shoulders. XR/XR chest 1V portable [id number] IMPRESSION: 1. No acute cardiopulmonary process. 2. Incidental/nonacute findings are listed in the report.
[2021-11-08] MEDS: ipratropium-albuterol 3 mL Neb INHALATION (21:14)
[2021-11-08 21:16] VITALS: PULSE 97; RESP 20; O2SAT 96
--- NOTE | 2021-11-08 21:17 | ED_ITS ---
HPI - Chest Pain General: Chief Complaint: Chest Pain Stated Complaint: cp Time Seen by Provider: 11/08/21 20:47 Source: patient and family History of Present Illness: 80-year-old gentleman with a history of COPD/emphysema, and coronary disease. He presents with left-sided chest discomfort, that began a couple of days ago. He has had 4 nitroglycerin at home without much relief although, he presents relatively pain-free currently he has had some shortness of breath as well. He has not noticed an increased cough, fever, or sputum production. No increased leg swelling. He does note significant shortness of breath with even minimal exertion MD complaint: chest pain Pertinent past history: coronary artery disease and other Onset (ago): day(s) Timing of current episode: constant Prior episodes: Yes Onset: during rest Pain location: substernal and left chest Pain radiation: none Quality: tightness and aching Relieving factors: nothing Exacerbating factors: exertion Context: other Associated symptoms: Reports dyspnea; Deny abdominal pain, diaphoresis, fever(s), leg edema, nausea, palpitations or vomiting Treatment prior to arrival: nitroglycerin and oxygen Review of Systems Const: Denies: fever(s) or diaphoresis ENMT: Denies: throat pain Card: Reports: chest pain; Denies: palpitations Resp: Reports: dyspnea GI: Denies: abdominal pain, nausea or vomiting : Denies: flank pain Musc: Denies: neck pain Neuro: Denies: headache(s) [facility] ED PFSH: Medical History Benign prostatic hyperplasia with lower urinary tract symptoms Chronic prostatitis COPD (chronic obstructive pulmonary disease) Elevated PSA Surgical History History of amputation of toe History of appendectomy History of inguinal hernia repair right History of tonsillectomy History of transurethral destruction of bladder lesion S/P trigger finger release Status post left inguinal hernia repair Status post right inguinal hernia repair (11/21/20) Recurrent Family History Mother , at age 84-leukemia No problems noted. Father , at age 64--heart attack No problems noted. Social History Smoking and tobacco status: current every day smoker cigarettes Packs smoked per day: 1 Quit status (tobacco): has tried quititng Alcohol intake: never Marital status: Current occupational status: retired History of recent travel: No Physical Exam Const: GENERAL APPEARANCE: cooperative, ill appearing and frail appearing NUTRITIONAL APPEARANCE: thin ORIENTATION/CONSCIOUSNESS: Yes awake, Yes oriented to person and Yes oriented to time HENMT: COMMON NORMALS: normocephalic, atraumatic and Normal external nose present HEAD & SCALP: normocephalic and atraumatic FACE & SINUS: normal facial exam and face symmetric NOSE: Normal external nose present Eye: COMMON NORMALS: Equal, round and reactive pupils present and EOMs intact bilaterally PUPIL: Yes Equal, round and reactive pupils present Chest: COMMONS NORMALS: normal inspection of the chest Resp: EFFORT & INSPECTION: Yes tachypneic, Yes pursed lip breathing and Yes labored AUSCULTATION: rhonchi and wheezes Cardio: COMMON NORMALS: regular rate and regular rhythm RATE: regular rate RHYTHM: regular rhythm GI: COMMON NORMALS: Normal to inspection, nondistended, normoactive bowel sounds present, Soft to palpation and non-tender PALPATION: Yes Soft to palpation Extremity: COMMON NORMALS: negative for no pedal edema Neuro: SENSORIUM/ORIENTATION: Yes oriented to person and Yes oriented to time Course Consultations: Consultation #1: kristen Time: 00:47 Vital Signs: Vital signs: Vital Signs Temperature 98.2 F 11/08/21 20:40 Pulse Rate 73 11/09/21 00:00 Respiratory Rate 18 11/09/21 00:00 Blood Pressure 121/65 11/09/21 00:00 Pulse Oximetry 100 11/09/21 00:00 MDM - Chest Pain Medical Decision Making EKG shows a sinus rhythm with a significant right bundle annie block, and left fascicular block. There is mild ST depression present in the inferior leads. No acute ST elevation. Chest x-ray is free of infiltrate or effusion. Hemoglobin is 10.9. White blood cell count is 17. BUN is 48 with a creatinine of 1.7, up from his prior creatinine. However BNP is not impressively elevated. His D-dimer is elevated. His troponin initially is 18 and did not change at 2 hours. The patient wanted to go home. He was given a DuoNeb treatment with some improvement here. He was pain-free lying in bed. When getting up to walk, though, chest tightness return, and he began to get significantly short of breath. This is likely respiratory. We will treat as such. Hospitalist has been consulted, and will see the patient in the ER. Lab Data : 11/08/21 21:03 11/08/21 21:33 Radiology Impressions Chest X-Ray 11/08/21 20:55 IMPRESSION: 1. No acute cardiopulmonary process. 2. Incidental/nonacute findings are listed in the report. Laboratory Results WBC 17.4 10^3/uL (4.0-10.0) H 11/08/21 21:03 RBC 3.31 10^6/uL (4.1-5.3) L 11/08/21 21:03 Hgb 10.9 g/dL (11.7-16.6) L 11/08/21 21: Hct 33.7 % (42.0-52.0) L 11/08/21 21: MCV 101.8 fl (80-94) H 11/08/21 21:03 MCH 32.9 pg (28.0-34.0) 11/08/21 21: MCHC 32.3 g/dL (30.0-36.0) 11/08/21 21:03 RDW 14.9 % (12.1-15.1) 11/08/21 21:03 Plt Count 327 10^3/cmm (130-400) 11/08/21 21:03 MPV 9.9 fL (7.4-10.4) 11/08/21 21:03 Neut % (Auto) 83.4 % 11/08/21 21: Lymph % (Auto) 4.4 % 11/08/21 21: [place] % (Auto) 11.3 % 11/08/21 21:03 Eos % (Auto) 0.3 % 11/08/21 21:03 Baso % (Auto) 0.2 % 11/08/21 21: Neut # (Auto) 14.55 10^3/uL (1.8-7.7) H 11/08/21 21:03 Lymph # (Auto) 0.8 10^3/uL (0.8-4.8) 11/08/21 21:03 [place] # (Auto) 2.0 10^3/uL (0.2-0.9) H 11/08/21 21:03 Eos # (Auto) 0.1 10^3/uL (0.0-0.8) 11/08/21 21:03 Baso # (Auto) 0.0 10^3/uL (0.0-0.1) 11/08/21 21:03 Nucleated RBC % (auto) 0 % 11/08/21 21:03 Nucleated RBCs # 0.0 /100WBC 11/08/21 21:03 D-Dimer 1.79 ug/mIFEU (0-0.59) H 11/08/21 21:33 Sodium 139 mmol/L (136-145) 11/08/21 21:33 Potassium 4.9 mmol/L (3.5-5.1) 11/08/21 21:33 Chloride 103 mmol/L (98-107) 11/08/21 21:33 Carbon Dioxide 26 mmol/L (22-29) 11/08/21 21:33 Anion Gap 14.9 (5-19) 11/08/21 21:33 BUN 48 mg/dL (8-23) H 11/08/21 21:33 Creatinine 1.7 mg/dL (0.7-1.2) H 11/08/21 21:33 GFR Calculation Not Reportable 11/08/21 21:33 Glucose 127 mg/dL (65-115) H 11/08/21 21:33 Calculated Osmolality 302 mOsm/kg (285-295) H 11/08/21 21:33 Calcium 8.6 mg/dL (8.5-10.5) 11/08/21 21:33 Total Bilirubin 0.4 mg/dL (0.15-1.2) 11/08/21 21:33 AST 15 U/L (0-40) 11/08/21 21:33 ALT 14 U/L (0-41) 11/08/21 21:33 Alkaline Phosphatase 62 IU/L (40-130) 11/08/21 21:33 Troponin T Baseline 18 ng/L (0-15) H 11/08/21 21:33 Troponin T 120 Minute 17.55 ng/L (0-15) H 11/08/21 23:31 Delta Troponin T -0.45 ABS# (0-10) L 11/08/21 23:31 NT-Pro-B Natriuret Pep 981 pg/mL (0-450) H 11/08/21 21:33 Total Protein 6.4 g/dL (6.6-8.7) L 11/08/21 21:33 Albumin 3.7 g/dL (3.5-5.2) 11/08/21 21:33 Globulin 2.7 g/dL (1.3-4.6) 11/08/21 21:33 Discharge Plan Discharge Patient Disposition: Admitted As Inpatient Clinical Impression: Respiratory failure, Chest pain, Acute exacerbation of chronic obstructive pulmonary disease Condition: Fair Prescriptions: No Action albuterol sulfate [ProAir HFA] 90 mcg/actuation HFA aerosol inhaler 2 puff INHALATION Q6H PRN (Reason: Shortness Of Breath) 0RF Trelegy Ellipta 100-62.5-25 mcg blister with device 1 inh INHALATION QAM 0RF meclizine 25 mg tablet 25 mg PO Q6H PRN (Reason: Dizziness) 0RF atorvastatin 40 mg tablet 40 mg PO QAM Qty: 90 3RF carvedilol 3.125 mg tablet 3.125 mg PO BID Qty: 180 3RF clopidogrel 75 mg tablet 75 mg PO DAILY Qty: 90 3RF aspirin 81 mg tablet,delayed release (DR/EC) 81 mg PO DAILY Qty: 90 3RF pantoprazole 40 mg tablet,delayed release (DR/EC) 40 mg PO BID Qty: 30 0RF tamsulosin 0.4 mg capsule See Rx Instructions .ROUTE .COMPLEX Qty: 180 3RF Dose Instruction: Take 1 capsule by mouth twice daily Rx Instructions: Take 1 capsule by mouth twice daily ascorbic acid (vitamin C) [Vitamin C] 1,000 mg Tablet 1,000 mg PO QPM 0RF Referrals: Sulma Alcantara MD [Primary Care Provider] - Coding Level of Care Code ED Buoy Tender for Jesica Johnson
[2021-11-08 21:19] LABS: Basophils % 0.2 %; Eosinophils # 0.1 10^3/uL (0.0-0.8); Eosinophils % 0.3 %; Hematocrit 33.7 % (42.0-52.0); Hemoglobin 10.9 g/dL (11.7-16.6); Lymphocytes # 0.8 10^3/uL (0.8-4.8); Lymphocytes % 4.4 %; Mean Corpuscular HGB Conc 32.3 g/dL (30.0-36.0); Mean Corpuscular Hemoglobin 32.9 pg (28.0-34.0); Mean Corpuscular Volume 101.8 fl (80-94); Mean Platelet Volume 9.9 fL (7.4-10.4); Monocytes % 11.3 %; Neutrophils # 14.55 10^3/uL (1.8-7.7); Neutrophils % 83.4 %; Nucleated Red Blood Cells % 0 %; Platelet Count 327 10^3/cmm (130-400); Red Blood Count 3.31 10^6/uL (4.1-5.3); Red Cell Distribution Width 14.9 % (12.1-15.1); White Blood Count 17.4 10^3/uL (4.0-10.0)
[2021-11-08 21:20] VITALS: PULSE 93
[2021-11-08 21:55] LABS: D Dimer 1.79 ug/mIFEU (0-0.59)
[2021-11-08 21:57] LABS: Troponin(5th) Baseline 18 ng/L (0-15)
[2021-11-08 22:05] LABS: Alanine Aminotransferase 14 U/L (0-41); Albumin Level 3.7 g/dL (3.5-5.2); Alkaline Phosphatase 62 IU/L (40-130); Anion Gap 14.9 (5-19); Aspartate Amino Transferase 15 U/L (0-40); Blood Urea Nitrogen 48 mg/dL (8-23); Calcium 8.6 mg/dL (8.5-10.5); Carbon Dioxide 26 mmol/L (22-29); Chloride 103 mmol/L (98-107); Globulin 2.7 g/dL (1.3-4.6); Glucose 127 mg/dL (65-115); NT Pro B Type Natriuretic Pept 981 pg/mL (0-450); Osmolality Calculated 302 mOsm/kg (285-295); Potassium 4.9 mmol/L (3.5-5.1); Sodium 139 mmol/L (136-145); Total Bilirubin 0.4 mg/dL (0.15-1.2); Total Protein 6.4 g/dL (6.6-8.7)
[2021-11-08 22:46] VITALS: BP 99/61; PULSE 78; RESP 18; O2SAT 100
--- NOTE | 2021-11-08 22:55 | ECG_ITS ---
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 Measurements Intervals [place] Rate: 103 P: 98 MT: 146 QRS: -86 QRSD: 135 T: 76 QT: 323 QTc: 424 Interpretive Statements SINUS TACHYCARDIA LEFT AXIS DEVIATION [QRS AXIS < -30] RIGHT BUNDLE BRANCH BLOCK [120+ ms QRS DURATION, UPRIGHT V1, 40+ ms S IN I/aVL/V4/V5/V6] POSSIBLE SEPTAL MYOCARDIAL INFARCTION , OF INDETERMINATE AGE [30 ms Q WAVE IN V1/V2] Compared to ECG 07/16/2021 22:21:59 Left-axis deviation now present Sinus rhythm no longer present Right-axis deviation no longer present Myocardial infarct finding still present Electronically Signed On 11-09-2021 8:17:36 CDT by Yash Mistry M.D. [id number]
[2021-11-08 23:57] LABS: Troponin 5 2HR 17.55 ng/L (0-15)
[2021-11-09] VITALS (25 sets, daily range): BP systolic 114–145; BP diastolic 58–75; PULSE 72–94; RESP 16–28; TEMP 36.2–36.9; O2SAT 94–100; BMI 18.6
[2021-11-09 00:06] LABS: Troponin 5 2HR Delta -0.45 ABS# (0-10)
[2021-11-09] MEDS: ipratropium-albuterol 3 mL Neb INHALATION ×7 (00:54→23:07)
[2021-11-09] MEDS: doxycycline 100 mg Tablet PO (00:54)
--- NOTE | 2021-11-09 01:28 | PM.HP ---
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 Patient tells me for the last few days, he has experienced increased shortness of breath, chest tightness, nonproductive cough, no fevers, chills, all his COVID vaccinations are up-to-date has received his booster, his flu vaccine is up-to-date, has received his pneumonia shots. He has been experiencing increased shortness of breath, fatigue, malaise. Review of Systems Const: Denies: fever(s) or chills Eyes: Denies: change in vision Card: Reports: chest pain Resp: Reports: dyspnea and non-productive cough GI: Denies: abdominal pain, nausea or vomiting : Denies: flank pain, difficulty urinating, dysuria or urinary frequency Musc: Denies: neck pain or back pain Skin/Breast: Denies: rash Neuro: Denies: headache(s), dizziness or vertigo Endo: Denies: polyuria or polydipsia Medications/Allergies Home Medications Medication Instructions Recorded Confirmed Last Taken Type albuterol sulfate 90 mcg/actuation 2 puff INHALATION Q6H PRN 08/18/19 10/07/21 07/17/21 History aerosol inhaler (ProAir HFA) fluticasone fur. 100 mcg-umeclid 1 inh INHALATION QAM 08/18/19 10/07/21 07/18/21 06:00 History 62.5 mcg-vilant 25 mcg inhalat.powder (Trelegy Ellipta) meclizine 25 mg tablet 25 mg PO Q6H PRN tab 08/18/19 10/07/21 11/20/20 History ascorbic acid (vitamin C) 1,000 mg 1,000 mg PO QPM 03/21/21 10/07/21 07/18/21 06:00 History tablet (Vitamin C) atorvastatin 40 mg tablet 40 mg PO QAM #90 tab 04/10/21 10/07/21 07/18/21 06:00 Rx carvedilol 3.125 mg tablet 3.125 mg PO BID #180 tab 04/10/21 10/07/21 07/18/21 06:00 Rx clopidogrel 75 mg tablet 75 mg PO DAILY #90 tab 04/10/21 10/07/21 07/18/21 06:00 Rx aspirin 81 mg tablet,delayed 81 mg PO DAILY #90 tab 04/22/21 10/07/21 07/18/21 06:00 Rx release pantoprazole 40 mg tablet,delayed 40 mg PO BID #30 tab 05/21/21 10/07/21 07/17/21 18:00 Rx release tamsulosin 0.4 mg capsule See Rx Instructions .ROUTE 07/09/21 10/07/21 07/18/21 06:00 Rx .COMPLEX #180 cap Allergies Allergy/AdvReac Type Severity Reaction Status Date / Time No Known Allergies Allergy Verified 11/08/21 20:41 PFSH Acute PFSH: Medical History Benign prostatic hyperplasia with lower urinary tract symptoms Chronic prostatitis COPD (chronic obstructive pulmonary disease) Elevated PSA Surgical History History of amputation of toe History of appendectomy History of inguinal hernia repair right History of tonsillectomy History of transurethral destruction of bladder lesion S/P trigger finger release Status post left inguinal hernia repair Status post right inguinal hernia repair (11/21/20) Recurrent Family History Mother , at age 84-leukemia No problems noted. Father , at age 64--heart attack No problems noted. Social History Smoking and tobacco status: current every day smoker cigarettes Packs smoked per day: 1 Quit status (tobacco): has tried quititng Alcohol intake: never Marital status: Current occupational status: retired History of recent travel: No Vitals/I&O/Wt Last Vital Signs Temp 98.2 F 11/08/21 20:40 Pulse 83 11/09/21 01:00 Resp 18 11/09/21 00:54 BP 121/65 11/09/21 00:00 Pulse Ox 98 11/09/21 00:54 Weight last 48 hrs Weight 56.699 kg Physical Exam Const: COMMON NORMALS: no acute distress and patient oriented x3 HENMT: COMMON NORMALS: normocephalic HEAD & SCALP: normocephalic Eye: COMMON NORMALS: Equal, round and reactive pupils present and EOMs intact bilaterally Neck/C-Spine: COMMON NORMALS: no JVD Lymph: LYMPHATIC: no lymphadenopathy noted Resp: COMMON NORMALS: normal respiratory effort, No retractions and No use of accessory muscles EFFORT & INSPECTION: Yes able to speak in complete sentences AUSCULTATION: diminished lung sounds diffuse Cardio: COMMON NORMALS: no JVD, regular rate, regular rhythm, S1 normal heart sound present and S2 normal heart sound present RATE: regular rate RHYTHM: regular rhythm HEART SOUNDS: S1 normal heart sound present and S2 normal heart sound present GI: COMMON NORMALS: Normal to inspection, nondistended, normoactive bowel sounds present, Soft to palpation, non-tender and no bruits PALPATION: Yes Soft to palpation Extremity: COMMON NORMALS: capillary refill normal, no clubbing, cyanosis or edema, no calf tenderness and no pedal edema Neuro: COMMON NORMALS: patient oriented x3 Psych: COMMON NORMALS: mental status grossly normal Data : 11/08/21 21:03 11/08/21 21:33 A&P Assessment and plan (1) Respiratory failure: Status: Acute Qualifiers: Chronicity: acute Respiratory failure complication: hypoxia Qualified Code(s): J96.01 - Acute respiratory failure with hypoxia (2) Chest pain: Status: Acute (3) Bladder cancer: Status: Acute (4) COPD (chronic obstructive pulmonary disease): Status: Acute (5) Internal carotid artery stenosis: Status: Acute Plan COPD exacerbation -Continue Solu-Medrol 40 every 8 hours -Doxycycline 100 every 12 hours -Sputum cultures -DuoNeb, budesonide -Venous ultrasound for evaluation for possible DVT, D-dimer elevated, cannot perform CT angiogram, hold off for now given creatinine 1.7, there is a low likelihood of pulmonary emboli, -Full code -Lovenox for DVT prophylaxis CAD with complaints of chest pain -Serial EKGs, serial troponins, telemetry monitoring -Continue aspirin, statin, Plavix, Coreg Hyperlipidemia Hypertension BPH COPD, on 2 to 3 L oxygen dependent Attestations Medical Necessity Statement*: Patient requires hospitalization, for COPD exacerbation, inpatient, greater than 2 midnights Coding Level of Care Code Acute Electronic Plotting System Operator for [facility] Fwd Diagnoses Respiratory failure J96.01 Chronicity: acute Respiratory failure complication: hypoxia Chest pain R07.9 Bladder cancer C67.9 COPD (chronic obstructive pulmonary disease) J44.9 Internal carotid artery stenosis I65.29
[2021-11-09 01:41] LABS: ABG PCO2 43.3 mmHg (35-45); Arterial Blood Gas Hematocrit 31.5 % (42-52); Base Excess ABG 1.7 mmol/L (-2.0-2.0); Blood Gas Allen Test Pos; Blood Gas Sample Site Radial, left; Blood Gas Sample Type Arterial; HCO3 ABG 26.8 mmol/L (22-26); Oxygen Device NC
[2021-11-09 02:23] LABS: Procalcitonin 0.21 ng/mL (0-0.5)
--- NOTE | 2021-11-09 02:34 | USR_ITS ---
PROCEDURE INFORMATION: Exam: US Duplex Lower Extremity Veins, Bilateral Exam date and time: 11/09/2021 3:15 AM Age: 80 years old Clinical indication: Abnormal findings; Abnormal lab test; Elevated d-dimer; Additional info: Dvt TECHNIQUE: Imaging protocol: Real-time Duplex ultrasound of the bilateral extremities with 2-D ramírez scale, color Doppler flow and spectral waveform analysis with image documentation. Complete exam focused on the bilateral lower extremity veins. COMPARISON: US Renal Kidney Structu* [id number] 10/29/2016 3:41 PM FINDINGS: Right deep veins: Unremarkable. The common femoral, femoral, proximal profunda femoral and popliteal veins are patent without thrombus. Normal Doppler waveforms. Normal compressibility and/or augmentation response. Right superficial veins: Saphenofemoral junction is patent without thrombus. Left deep veins: Unremarkable. The common femoral, femoral, proximal profunda femoral and popliteal veins are patent without thrombus. Normal Doppler waveforms. Normal compressibility and/or augmentation response. Left superficial veins: Saphenofemoral junction is patent without thrombus. Soft tissues: Unremarkable. US/[place] [id number] IMPRESSION: No evidence of deep vein thrombosis.
--- NOTE | 2021-11-09 02:55 | ECG_ITS ---
[facility] Test Date: 2021-11-09 Pat Name: Jorge Odom Department: Room: 278 Gender: Male Garnett Feeder: : 1940 Requested By: Allan Ferraro Order Number: [id number] Hortencia MD: Yash Mistry M.D. Measurements Intervals [place] Rate: 89 P: 95 CO: 155 QRS: -82 QRSD: 141 T: 77 QT: 362 QTc: 442 Interpretive Statements SINUS RHYTHM LEFT AXIS DEVIATION [QRS AXIS < -30] RIGHT BUNDLE BRANCH BLOCK [120+ ms QRS DURATION, UPRIGHT V1, 40+ ms S IN I/aVL/V4/V5/V6] POSSIBLE SEPTAL MYOCARDIAL INFARCTION , OF INDETERMINATE AGE [30 ms Q WAVE IN V1/V2] Compared to ECG 11/08/2021 21:01:43 Left-axis deviation now present Sinus arrhythmia no longer present Left anterior fascicular block no longer present Myocardial infarct finding still present Electronically Signed On 11-09-2021 8:19:39 CDT by Yash Mistry M.D. [id number]
[2021-11-09] MEDS: tamsulosin 0.4 mg Capsule PO ×3 (03:02→17:25)
[2021-11-09] MEDS: enoxaparin 40 mg/0.4 mL Syringe SUBCUT (03:02)
[2021-11-09 05:00] LABS: Troponin 5 6HR 15.76 ng/L (0-15)
[2021-11-09 05:03] LABS: Troponin 5 6HR Delta -2.24 ng/L (0-12)
[2021-11-09] MEDS: atorvastatin 40 mg Tablet PO (05:59)
[2021-11-09] MEDS: budesonide 0.5 mg/2 mL Neb INHALATION ×2 (07:34→20:43)
[2021-11-09] MEDS: carvedilol 3.125 mg Tablet PO ×2 (08:25→17:25)
[2021-11-09] MEDS: aspirin 81 mg EC Tablet PO (08:25)
[2021-11-09] MEDS: clopidogrel 75 mg Tablet PO (08:25)
[2021-11-09] MEDS: doxycycline 100 MG in sodium chloride 0.9% (plus) 100 ML IV (14:04)
[2021-11-09] MEDS: pantoprazole DR 40 mg Tablet PO (17:25)
[2021-11-09] MEDS: acetaminophen 325 mg Tablet 650 MG PO (19:37)
[2021-11-10] VITALS (9 sets, daily range): BP systolic 133–137; BP diastolic 63–73; PULSE 57–92; RESP 16–18; TEMP 36.4–36.5; O2SAT 91–97
[2021-11-10] MEDS: doxycycline 100 MG in sodium chloride 0.9% (plus) 100 ML IV (01:08)
[2021-11-10] MEDS: enoxaparin 30 mg/0.3 mL Syringe SUBCUT (02:10)
[2021-11-10] MEDS: ipratropium-albuterol 3 mL Neb INHALATION ×2 (04:06→11:27)
[2021-11-10 04:58] LABS: Basophils % 0.1 %; Hematocrit 31.3 % (42.0-52.0); Hemoglobin 9.9 g/dL (11.7-16.6); Lymphocytes # 0.6 10^3/uL (0.8-4.8); Lymphocytes % 3.2 %; Mean Corpuscular HGB Conc 31.6 g/dL (30.0-36.0); Mean Corpuscular Hemoglobin 31.9 pg (28.0-34.0); Mean Platelet Volume 9.6 fL (7.4-10.4); Monocytes # 0.7 10^3/uL (0.2-0.9); Monocytes % 3.7 %; Neutrophils # 17.41 10^3/uL (1.8-7.7); Neutrophils % 92.2 %; Nucleated Red Blood Cells % 0 %; Platelet Count 369 10^3/cmm (130-400); White Blood Count 18.9 10^3/uL (4.0-10.0)
[2021-11-10 05:11] LABS: Alanine Aminotransferase 14 U/L (0-41); Albumin Level 3.3 g/dL (3.5-5.2); Alkaline Phosphatase 70 IU/L (40-130); Anion Gap 15.2 (5-19); Aspartate Amino Transferase 12 U/L (0-40); Blood Urea Nitrogen 52 mg/dL (8-23); Calcium 9.8 mg/dL (8.5-10.5); Carbon Dioxide 25 mmol/L (22-29); Chloride 107 mmol/L (98-107); Creatinine Clr Calc Pharmacy 32.5764; Globulin 3.3 g/dL (1.3-4.6); Glucose 145 mg/dL (65-115); Magnesium 2.6 mg/dL (1.7-2.3); Osmolality Calculated 311 mOsm/kg (285-295); Potassium 5.2 mmol/L (3.5-5.1); Sodium 142 mmol/L (136-145); Total Bilirubin 0.2 mg/dL (0.15-1.2); Total Protein 6.6 g/dL (6.6-8.7)
[2021-11-10] MEDS: atorvastatin 40 mg Tablet PO (05:30)
[2021-11-10] MEDS: aspirin 81 mg EC Tablet PO (08:25)
[2021-11-10] MEDS: pantoprazole DR 40 mg Tablet PO (08:25)
[2021-11-10] MEDS: tamsulosin 0.4 mg Capsule PO (08:25)
[2021-11-10] MEDS: clopidogrel 75 mg Tablet PO (08:25)
[2021-11-10] MEDS: carvedilol 3.125 mg Tablet PO (08:25)
--- NOTE | 2021-11-10 10:04 | P.DS_ITS ---
Discharge Providers Date of Admission: 11/09/21 02:31 Date of Discharge: November 10, 2021 Attending Provider at Admission: Andriy Reich MD Attending Provider at Discharge: Ahmet Pappas MD Primary Care Provider: Sulma Alcantara MD Diagnoses at Discharge Discharge Diagnosis (1) Respiratory failure: Qualifiers: Chronicity: acute Respiratory failure complication: hypoxia Qualified Code(s): J96.01 - Acute respiratory failure with hypoxia (2) Chest pain: (3) Bladder cancer: (4) COPD (chronic obstructive pulmonary disease): (5) Internal carotid artery stenosis: Reason for Visit Reason for Visit: cp Hospital Course Hospital Course HPI:; Andriy Reich MD Jorge Odom is a 80 year old male with a past medical history of CAD status post RCA stenting, 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 Patient tells me for the last few days, he has experienced increased shortness of breath, chest tightness, nonproductive cough, no fevers, chills, all his COVID vaccinations are up-to-date has received his booster, his flu vaccine is up-to-date, has received his pneumonia shots.? He has been experiencing increased shortness of breath, fatigue, malaise. Hospital course: Patient was admitted for the management of COPD exacerbation: He was kept on steroids, duo nebs, supplemental oxygen as needed, doxycycline, bilateral lower extremity Doppler vein was negative for dvt, Patient responded well to above medical management and was discharged home in stable condition, He was discharged on p.o. prednisone for 5 days as well as azithromycin. He was continued on his home inhaler.He will continue to follow with his PCP as well as primary care physician as an outpatient. Physical Exam Const: COMMON NORMALS: patient oriented x3 HENMT: COMMON NORMALS: normocephalic and atraumatic HEAD & SCALP: normocephalic and atraumatic Chest: CHEST: Yes Symmetrical chest wall rise Resp: COMMON NORMALS: normal respiratory effort, No retractions, No use of accessory muscles and clear to auscultation bilaterally EFFORT & INSPECTION: Yes symmetric chest movement AUSCULTATION: clear to auscultation bilaterally OTHER: Diminished air entry bilaterally Cardio: COMMON NORMALS: regular rate, regular rhythm, S1 normal heart sound present, S2 normal heart sound present, No gallops present (Cardio), No murmurs present (Cardio), No rub (Cardio) and Peripheral pulses 2+ throughout RATE: regular rate RHYTHM: regular rhythm HEART SOUNDS: S1 normal heart sound present and S2 normal heart sound present PERIPHERAL PULSES: Peripheral pulses 2+ throughout GI: COMMON NORMALS: Normal to inspection, nondistended, normoactive bowel sounds present, Soft to palpation, non-tender, No hepatosplenomegaly present and no masses AUSCULTATION: Yes normoactive bowel sounds PALPATION: Yes Soft to palpation and Yes No hepatosplenomegaly present RECTAL EXAM: Yes deferred Extremity: COMMON NORMALS: no clubbing, cyanosis or edema and no pedal edema Neuro: COMMON NORMALS: patient oriented x3 Discharge Data Studies Completed and Pending Completed Studies During Hospitalization Category Date Time Status XR chest 1V portable [id number] Stat Exams 11/08/21 20:55 [place] [id number] Urgent Ultrasound 11/09/21 02:34 Completed Pending at discharge Category Date Time Status Complete Blood Count w/Auto AM LABS Lab 11/11/21 04:00 Ordered Complete Blood Count w/Auto AM LABS Lab 11/12/21 04:00 Ordered Comprehensive Metabolic Panel AM LABS Lab 11/11/21 04:00 Ordered Comprehensive Metabolic Panel AM LABS Lab 11/12/21 04:00 Ordered Magnesium AM LABS Lab 11/11/21 04:00 Ordered Magnesium AM LABS Lab 11/12/21 04:00 Ordered Phosphorus AM LABS Lab 11/11/21 04:00 Ordered Phosphorus AM LABS Lab 11/12/21 04:00 Ordered Sputum Culture and Gram Stain Stat Lab 11/09/21 01:27 Uncollected Radiology Impressions Chest X-Ray 11/08/21 20:55 IMPRESSION: 1. No acute cardiopulmonary process. 2. Incidental/nonacute findings are listed in the report. Venous Duplex 11/09/21 02:34 IMPRESSION: No evidence of deep vein thrombosis. Laboratory Results WBC 18.9 10^3/uL (4.0-10.0) H 11/10/21 04:30 RBC 3.10 10^6/uL (4.1-5.3) L 11/10/21 04:30 Hgb 9.9 g/dL (11.7-16.6) L 11/10/21 04:30 Hct 31.3 % (42.0-52.0) L 11/10/21 04:30 MCV 101.0 fl (80-94) H 11/10/21 04:30 MCH 31.9 pg (28.0-34.0) 11/10/21 04:30 MCHC 31.6 g/dL (30.0-36.0) 11/10/21 04:30 RDW 14.0 % (12.1-15.1) 11/10/21 04:30 Plt Count 369 10^3/cmm (130-400) 11/10/21 04:30 MPV 9.6 fL (7.4-10.4) 11/10/21 04:30 Neut % (Auto) 92.2 % 11/10/21 04:30 Lymph % (Auto) 3.2 % 11/10/21 04:30 Glades % (Auto) 3.7 % 11/10/21 04:30 Eos % (Auto) 0.0 % 11/10/21 04:30 Baso % (Auto) 0.1 % 11/10/21 04:30 Neut # (Auto) 17.41 10^3/uL (1.8-7.7) H 11/10/21 04:30 Lymph # (Auto) 0.6 10^3/uL (0.8-4.8) L 11/10/21 04:30 Glades # (Auto) 0.7 10^3/uL (0.2-0.9) 11/10/21 04:30 Eos # (Auto) 0.0 10^3/uL (0.0-0.8) 11/10/21 04:30 Baso # (Auto) 0.0 10^3/uL (0.0-0.1) 11/10/21 04:30 Nucleated RBC % (auto) 0 % 11/10/21 04:30 Nucleated RBCs # 0.0 /100WBC 11/10/21 04:30 D-Dimer 1.79 ug/mIFEU (0-0.59) H 11/08/21 21:33 Specimen Type Arterial 11/09/21 01:30 Sample Site Radial, left 11/09/21 01:30 ABG pH 7.40 (7.35-7.45) 11/09/21 01:30 ABG pCO2 43.3 mmHg (35-45) 11/09/21 01:30 ABG pO2 87.0 mmHg (80.0-100.0) 11/09/21 01:30 ABG HCO3 26.8 mmol/L (22-26) H 11/09/21 01:30 ABG Base Excess 1.7 mmol/L (-2.0-2.0) 11/09/21 01:30 Adilson Test Pos 11/09/21 01:30 Hematocrit 31.5 % (42-52) L 11/09/21 01:30 O2 Delivery Device Nc 11/09/21 01:30 O2 Liters/Min 3.0 % 11/09/21 01:30 Emergency Vehicle Operator ID Buttr 11/09/21 01:30 Sodium 142 mmol/L (136-145) 11/10/21 04:30 Potassium 5.2 mmol/L (3.5-5.1) H 11/10/21 04:30 Chloride 107 mmol/L (98-107) 11/10/21 04:30 Carbon Dioxide 25 mmol/L (22-29) 11/10/21 04:30 Anion Gap 15.2 (5-19) 11/10/21 04:30 BUN 52 mg/dL (8-23) H 11/10/21 04:30 Creatinine 1.4 mg/dL (0.7-1.2) H 11/10/21 04:30 GFR Calculation Not Reportable 11/10/21 04:30 Glucose 145 mg/dL (65-115) H 11/10/21 04:30 Calculated Osmolality 311 mOsm/kg (285-295) H 11/10/21 04:30 Calcium 9.8 mg/dL (8.5-10.5) 11/10/21 04:30 Phosphorus 5.0 mg/dL (2.5-4.5) H 11/10/21 04:30 Magnesium 2.6 mg/dL (1.7-2.3) H 11/10/21 04:30 Total Bilirubin 0.2 mg/dL (0.15-1.2) 11/10/21 04:30 AST 12 U/L (0-40) 11/10/21 04:30 ALT 14 U/L (0-41) 11/10/21 04:30 Alkaline Phosphatase 70 IU/L (40-130) 11/10/21 04:30 Troponin T Baseline 18 ng/L (0-15) H 11/08/21 21:33 Troponin T 120 Minute 17.55 ng/L (0-15) H 11/08/21 23:31 Delta Troponin T -0.45 ABS# (0-10) L 11/08/21 23:31 Troponin T Hi Sens 6Hr 15.76 ng/L (0-15) H 11/09/21 03:55 Troponin T Hi Sens 6Hr Delta -2.24 ng/L (0-12) L 11/09/21 03:55 NT-Pro-B Natriuret Pep 981 pg/mL (0-450) H 11/08/21 21:33 Total Protein 6.6 g/dL (6.6-8.7) 11/10/21 04:30 Albumin 3.3 g/dL (3.5-5.2) L 11/10/21 04:30 Globulin 3.3 g/dL (1.3-4.6) 11/10/21 04:30 Procalcitonin 0.21 ng/mL (0-0.5) 11/08/21 23:31 Vitals Last Vital Signs Temp 97.6 F 11/10/21 08:00 Pulse 86 11/10/21 08:00 Resp 18 11/10/21 08:00 BP 137/63 11/10/21 08:00 Pulse Ox 97 11/10/21 08:00 Discharge Plan Discharge Patient Disposition: Home Condition: Stable Prescriptions: Continued albuterol sulfate [ProAir HFA] 90 mcg/actuation HFA aerosol inhaler 2 puff INHALATION Q6H PRN (Reason: Shortness Of Breath) 0RF meclizine 25 mg tablet 25 mg PO Q6H PRN (Reason: Dizziness) 0RF atorvastatin 40 mg tablet 40 mg PO QAM Qty: 90 3RF carvedilol 3.125 mg tablet 3.125 mg PO BID Qty: 180 3RF clopidogrel 75 mg tablet 75 mg PO DAILY Qty: 90 3RF mecobalamin (vitamin B12) 5,000 mcg tablet,disintegrating PO DAILY 0RF revefenacin 175 mcg/3 mL solution for nebulization 175 mcg inhalation DAILY 30 Days Qty: 90 4RF budesonide 0.5 mg/2 mL suspension for nebulization 0.5 mg inhalation BID 30 Days Qty: 120 4RF formoterol fumarate [Perforomist] 20 mcg/2 mL solution for nebulization 2 ml inhalation BID 30 Days Qty: 120 4RF aspirin 81 mg tablet,delayed release (DR/EC) 81 mg PO DAILY Qty: 90 3RF pantoprazole 40 mg tablet,delayed release (DR/EC) 40 mg PO BID Qty: 30 0RF tamsulosin 0.4 mg capsule See Rx Instructions .ROUTE .COMPLEX Qty: 180 3RF Dose Instruction: Take 1 capsule by mouth twice daily Rx Instructions: Take 1 capsule by mouth twice daily Discontinued ascorbic acid (vitamin C) [Vitamin C] 1,000 mg Tablet 1,000 mg PO QPM 0RF Discharge Orders: Discharge Order (Routine); Ordered 11/10/21 Ordered By: Ahmet Pappas Referrals: Sulma Alcantara MD [Primary Care Provider] - 1 week (Please call Dr. Alcantara's Office at [phone] to schedule a follow up appointment or if you have any questions or concerns. Thank you.) Mariano Adkins MD [Physician] - 1 week (Please call Dr. Adkins's Office at [phone] to schedule a follow up appointment or if you have any questions or concerns. Thank you.) Discharge Diet: Regular Discharge Activity: Resume usual activity Patient Instructions: Prednisone (By mouth), Azithromycin (By mouth), COPD (Chronic Obstructive Pulmonary Disease) (GEN), Opioid Safety Discharge Attestations Time Spent in Discharge Care*: less than 30 min Quality Metrics Clinical Quality Measures [ No reported AMI, CVA or VTE this stay] Coding Level of Care Code Acute Chg FW DC note Exam Detailed Diagnoses Respiratory failure J96.01 Chronicity: acute Respiratory failure complication: hypoxia Chest pain R07.9 Bladder cancer C67.9 COPD (chronic obstructive pulmonary disease) J44.9 Internal carotid artery stenosis I65.29
--- NOTE | 2021-11-10 12:16 | PC.NURSE ---
Patient discharge education reviewed with patient and spouse, all questions answered, no needs at this time. Verbally acknowledges discharge plans.
== END 2021-11-10 12:41 | disposition home or self-care (01) ==
LOC: ER 11-09 02:19 → MEDSURG 11-09 02:46
PROVIDERS: Admitting Provider Family Medicine; Emergency Provider Emergency Medicine; PCP Internal Medicine; Visit Provider Internal Medicine
DX: J96.01 Acute respiratory failure with hypoxia (principal); C67.9 Malignant neoplasm of bladder, unspecified; J44.9 Chronic obstructive pulmonary disease, unspecified; I65.29 Occlusion and stenosis of unspecified carotid artery; I25.10 Atherosclerotic heart disease of native coronary artery without angina pectoris; Z95.5 Presence of coronary angioplasty implant and graft; Z99.81 Dependence on supplemental oxygen; N40.0 Benign prostatic hyperplasia without lower urinary tract symptoms; E78.5 Hyperlipidemia, unspecified; I45.10 Unspecified right bundle-branch block
CPT/HCPCS: 36415; 36600; 71045; 80053; 82803; 83735; 83880; 84100; 84145; 84484; 85025; 85378; 93005; 93970; 94640; 94664; 96372; 96374; 97110; 97161; 99285; G0378; J1650; J2920; J2930; J3490; J7626

== ENCOUNTER 2021-11-12 14:28 | Outpatient (CLI) | payer MEDICARE, SELFPAY ==
[2021-11-12 15:20] LABS: Anion Gap 16.1 (5-19); Blood Urea Nitrogen 57 mg/dL (8-23); Calcium 10.1 mg/dL (8.5-10.5); Carbon Dioxide 28 mmol/L (22-29); Chloride 103 mmol/L (98-107); Glucose 100 mg/dL (65-115); Osmolality Calculated 310 mOsm/kg (285-295); Potassium 5.1 mmol/L (3.5-5.1); Sodium 142 mmol/L (136-145)
== END 2021-11-12 14:29 | disposition home or self-care (01) ==
PROVIDERS: PCP Internal Medicine; Visit Provider Internal Medicine
DX: I25.10 Atherosclerotic heart disease of native coronary artery without angina pectoris (principal)
CPT/HCPCS: 80048

== ENCOUNTER → 2021-11-19 13:06 | Outpatient (BNVA) | payer MEDICARE, SELFPAY | PROVIDERS: PCP Internal Medicine; Referring Provider Internal Medicine; Visit Provider Surgery | DX: Z09 Encounter for follow-up examination after completed treatment for conditions other than malignant neoplasm (principal); R91.1 Solitary pulmonary nodule; J44.9 Chronic obstructive pulmonary disease, unspecified; J96.11 Chronic respiratory failure with hypoxia; F17.210 Nicotine dependence, cigarettes, uncomplicated; R13.10 Dysphagia, unspecified | CPT/HCPCS: 99204; 99214 ==

== ENCOUNTER 2021-11-27 09:29 | Day surgery (SDC) | payer MEDICARE, SELFPAY ==
[2021-11-25 08:25] VITALS: BMI 19.0
[2021-11-27 10:08] VITALS: BP 141/77; PULSE 67; RESP 20; TEMP 36.4; O2SAT 100; BMI 19.0
[2021-11-27] MEDS: sodium chloride 0.9% 1,000 ML 30 ML IV (10:19)
--- NOTE | 2021-11-27 11:09 | P.ANESASSM_ITS ---
Pre-Anesthetic Assessment Height/Weight: Height 1.73 m Weight 56.699 kg Temp Pulse Resp BP Pulse Ox 97.5 F L 67 20 H 141/77 100 11/27/21 10:08 11/27/21 10:08 11/27/21 10:08 11/27/21 10:08 11/27/21 10:08 Preop Diagnosis: upper gi symptoms Operation Date: 11/27/21 11:00 Proposed Procedures p EGD Dilation W/ Balloon 85259/R13.10(Not Applicable) - Ted Moore MD Familial anesthetic complications: None Was Beta Ankur taken within 24 hours: N/A Was Clonidine taken within 24 hours: N/A Last intake: Intake Last Liquid Date 11/26/21 Last Liquid Time 22:00 Last Solid Date 11/25/21 Social Tobacco and No alcohol Exam alert, oriented x 3, clear to auscultation bilaterally and regular rate & rhythm Airway Mallampati: Class II Dentition: other (no teeth) Pulmonary Chronic Obstructive Pulmonary Disease (severe - on 2-3 L NC, recent exacerbation in october) CV/HEM Coronary Artery Disease (stents on plavix) and Myocardial Infarction GI Gastroesophageal Reflux Disease Anesthetic Plan ASA status: 4 Anesthesia: MAC Medications/Allergies Home Medications Medication Instructions Recorded Confirmed Last Taken Type albuterol sulfate 90 mcg/actuation 2 puff INHALATION Q6H PRN 08/18/19 11/27/21 11/27/21 History aerosol inhaler (ProAir HFA) meclizine 25 mg tablet 25 mg PO Q6H PRN tab 08/18/19 11/25/21 11/20/20 History atorvastatin 40 mg tablet 40 mg PO QAM #90 tab 04/10/21 11/27/21 11/27/21 Rx carvedilol 3.125 mg tablet 3.125 mg PO BID #180 tab 04/10/21 11/25/21 11/27/21 Rx clopidogrel 75 mg tablet 75 mg PO DAILY #90 tab 04/10/21 11/25/21 11/27/21 Rx aspirin 81 mg tablet,delayed 81 mg PO DAILY #90 tab 04/22/21 11/27/21 11/27/21 Rx release pantoprazole 40 mg tablet,delayed 40 mg PO BID #30 tab 05/21/21 11/25/21 11/27/21 Rx release tamsulosin 0.4 mg capsule See Rx Instructions .ROUTE 07/09/21 11/25/21 11/27/21 Rx .COMPLEX #180 cap budesonide 0.5 mg/2 mL suspension 0.5 mg (2 mL) INHALATION BID 30 11/19/21 11/27/21 11/27/21 Rx for nebulization Days #120 ml formoterol fumarate 20 mcg/2 mL 2 ml INHALATION BID 30 Days #120 ml 11/19/21 11/25/21 11/27/21 Rx solution for nebulization (Perforomist) mecobalamin (vitamin B12) 5,000 5,000 mcg PO DAILY tab 11/19/21 11/25/21 Unknown History mcg disintegrating tablet revefenacin 175 mcg/3 mL solution 175 mcg (3 mL) INHALATION DAILY 30 11/19/21 11/25/21 11/27/21 Rx for nebulization Days #90 ml budesonide 0.5 mg/2 mL suspension 0.5 mg (2 mL) INHALATION BID #60 ml 11/26/21 11/27/21 11/27/21 Rx for nebulization (Pulmicort) ipratropium 0.5 mg-albuterol 3 mg 3 ml INHALATION Q6H #180 ml 11/26/21 Unknown Rx (2.5 mg base)/3 mL nebulization soln Allergies Allergy/AdvReac Type Severity Reaction Status Date / Time No Known Allergies Allergy Verified 11/19/21 14:43 Current Medications Generic Name Dose Route Start Last Admin Trade Name Freq PRN Reason Stop Dose Admin Sodium Chloride 1,000 mls @ 30 mls/hr 11/27/21 10:00 11/27/21 10:19 Sodium Chloride 0.9% IV 11/28/21 09:59 30 mls/hr .Q24H ADDY Administration PFSH Anesthesia Medical History Benign prostatic hyperplasia with lower urinary tract symptoms Bladder cancer Chronic prostatitis COPD (chronic obstructive pulmonary disease) Internal carotid artery stenosis Respiratory failure Surgical History History of amputation of toe History of appendectomy History of colonoscopy History of inguinal hernia repair right History of tonsillectomy History of transurethral destruction of bladder lesion S/P trigger finger release Status post left inguinal hernia repair Status post right inguinal hernia repair (11/21/20) Recurrent Family History Mother , at age 84-leukemia No problems noted. Father , at age 64--heart attack No problems noted. Social History Smoking and tobacco status: current every day smoker (Quit 3 weeks) cigarettes Packs smoked per day: 2 Years cigarettes smoked: 67 [ Other cigarette details: s tarted at age 14] Quit status (tobacco): has quit using tobacco Alcohol intake: never Marital status: Current occupational status: retired History of recent travel: No Data Anesthesia Cardiac Studies: Echocardiogram 03/22/21
--- NOTE | 2021-11-27 11:30 | W.PM.OPSFHP ---
Same Day Surgery H&P Indication for Procedure/HPI DATE OF PROCEDURE: November 27, 2021 CHIEF COMPLAINT/INDICATIONFOR SURGICAL PROCEDURE: dysphagia PREOP DIAGNOSIS: upper gi symptoms PLANNED PROCEDURE: Operation Date: 11/27/21 11:00 Proposed Procedures p EGD Dilation W/ Balloon 15798/R13.10(Not Applicable) - Ted Moore MD Medications/Allergies* Home Medications Medication Instructions Recorded Confirmed Type albuterol sulfate 90 mcg/actuation 2 puff INHALATION Q6H PRN 08/18/19 11/27/21 History aerosol inhaler (ProAir HFA) meclizine 25 mg tablet 25 mg PO Q6H PRN tab 08/18/19 11/25/21 History mecobalamin (vitamin B12) 5,000 5,000 mcg PO DAILY tab 11/19/21 11/25/21 History mcg disintegrating tablet Allergies/Adverse Reactions Allergy/AdvReac Type Severity Reaction Status Date / Time No Known Allergies Allergy Verified 11/19/21 14:43 Current Medications: Generic Name Dose Route Start Last Admin Trade Name Freq PRN Reason Stop Dose Admin Sodium Chloride 1,000 mls @ 30 mls/hr 11/27/21 10:00 11/27/21 10:19 Sodium Chloride 0.9% IV 11/28/21 09:59 30 mls/hr .Q24H ADDY Administration Pertinent History/Comorbid Conditions* Medical History (Updated 11/19/21 @ 14:51 by Mariano Adkins MD) Benign prostatic hyperplasia with lower urinary tract symptoms Bladder cancer Chronic prostatitis COPD (chronic obstructive pulmonary disease) Internal carotid artery stenosis Respiratory failure Surgical History (Updated 11/19/21 @ 13:29 by Ted Moore MD) History of amputation of toe History of appendectomy History of colonoscopy History of inguinal hernia repair right History of tonsillectomy History of transurethral destruction of bladder lesion S/P trigger finger release Status post left inguinal hernia repair Status post right inguinal hernia repair (11/21/20) Recurrent Family History Father, at age 64--heart attack Mother, at age 84-leukemia Social History Smoking and tobacco status: current every day smoker (Quit 3 weeks) cigarettes Packs smoked per day: 2 Years cigarettes smoked: 67 [ Other cigarette details: started at age 14] Quit status (tobacco): has quit using tobacco Alcohol intake: never Marital status: Current occupational status: retired History of recent travel: No Pertinent Exam Findings alert, oriented x 3 and regular rate & rhythm Recommendations Surgery/Procedure today Coding Level of Care Code Acute Operations Program Manager for Jesica Johnson
[2021-11-27 11:48] VITALS: BP 108/65; PULSE 65; RESP 18; TEMP 36.1; O2SAT 100
--- NOTE | 2021-11-27 11:50 | ANE.PACU2 ---
Inpatient post-anesthesia follow up: Airway intact: Yes Vital signs: Temperature 97 F Pulse Rate 65 Respiratory Rate 18 Blood Pressure 108/65 Pulse Oximetry 100 Oxygen Delivery Me thod Nasal Cannula Oxygen Flow Rate 3 Fraction of Inspir ed Oxygen Hydration adequate: Yes Nausea and vomiting: No Pain level: 1 Mental status: Baseline
[2021-11-27 12:00] VITALS: BP 119/55; PULSE 74; RESP 18; TEMP 36.2; O2SAT 100
== END 2021-11-27 12:25 | disposition home or self-care (01) ==
PROVIDERS: PCP Internal Medicine; Visit Provider Surgery
DX: R13.10 Dysphagia, unspecified (principal); K29.70 Gastritis, unspecified, without bleeding; N40.0 Benign prostatic hyperplasia without lower urinary tract symptoms; Z85.51 Personal history of malignant neoplasm of bladder; J44.9 Chronic obstructive pulmonary disease, unspecified; Z87.891 Personal history of nicotine dependence; Z99.81 Dependence on supplemental oxygen; I25.10 Atherosclerotic heart disease of native coronary artery without angina pectoris; Z95.5 Presence of coronary angioplasty implant and graft; Z79.02 Long term (current) use of antithrombotics/antiplatelets; I25.2 Old myocardial infarction
CPT/HCPCS: 43235; J2704; J7030

== ENCOUNTER 2021-12-13 09:21 | Outpatient (CLI) | payer MEDICARE, SELFPAY ==
--- NOTE | 2021-12-13 09:15 | XRR_ITS ---
PROCEDURE INFORMATION: Exam: XR Abdomen Exam date and time: 12/13/2021 9:31 AM Age: 81 years old Clinical indication: Condition or disease; Kidney or ureter condition; Other: Ureterovesical junction obstruction; Prior surgery; Surgery type: Heart stents, hernia, appendectomy; Additional info: Ureterovesical junction obstruction, kub @ oz on 12/13/21 @ 0915. Appt to follow TECHNIQUE: Imaging protocol: XR of the abdomen. Views: Frontal supine view of the abdomen. 1 View. COMPARISON: CR XR KUB [id number] 07/18/2021 8:07 AM FINDINGS: Gastrointestinal tract: Normal. No bowel dilation. Vasculature: Multiple phleboliths are present in the pelvis. There are no obvious urinary calcifications. There is atherosclerotic calcification of the aorta and iliac arteries. Bones/joints: DJD is present in the spine. XR/XR KUB [id number] IMPRESSION: No acute abnormality. No urinary calcifications are seen.
== END 2021-12-13 09:22 | disposition home or self-care (01) ==
PROVIDERS: PCP Internal Medicine; Visit Provider Urology
DX: N13.5 Crossing vessel and stricture of ureter without hydronephrosis (principal); I70.0 Atherosclerosis of aorta; M19.90 Unspecified osteoarthritis, unspecified site; M47.9 Spondylosis, unspecified; N40.1 Benign prostatic hyperplasia with lower urinary tract symptoms; C67.9 Malignant neoplasm of bladder, unspecified; N20.9 Urinary calculus, unspecified
CPT/HCPCS: 51798; 52000; 74018; 81003; 99213

== ENCOUNTER 2021-12-17 18:05 | Emergency (ER) | payer MEDICARE, SELFPAY ==
[2021-12-17 18:30] VITALS: BP 115/66; PULSE 99; RESP 18; TEMP 36.7; O2SAT 94; BMI 18.2
--- NOTE | 2021-12-17 18:56 | XRR_ITS ---
PROCEDURE INFORMATION: Exam: XR Chest Exam date and time: 12/17/2021 7:29 PM Age: 81 years old Clinical indication: Dyspnea TECHNIQUE: Imaging protocol: XR of the chest. Views: 1 view. COMPARISON: CR (CHEST, ) 11/08/2021 9:08 PM FINDINGS: Lungs: Hyperinflated lungs with pleuroparenchymal scarring at apices and bases. No focal consolidation. Pleural spaces: Trace effusions not excluded. No pneumothorax. Heart/Mediastinum: Unremarkable. No cardiomegaly. Bones/joints: Unremarkable. XR/XR chest 1V portable [id number] IMPRESSION: Emphysema. No acute findings.
--- NOTE | 2021-12-17 18:57 | ECG_ITS ---
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 Measurements Intervals [place] Rate: 118 P: 84 [place]: 138 QRS: -72 QRSD: 133 T: 69 QT: 332 QTc: 466 Interpretive Statements SINUS TACHYCARDIA INDETERMINATE AXIS RIGHT BUNDLE BRANCH BLOCK [120+ ms QRS DURATION, UPRIGHT V1, 40+ ms S IN I/aVL/V4/V5/V6] Compared to ECG 11/09/2021 01:41:23 Indeterminate axis now present Sinus rhythm no longer present Left-axis deviation no longer present Myocardial infarct finding no longer present Electronically Signed On 12-18-2021 20:09:36 CDT by Ernestina Churchill M.D. [id number]
[2021-12-17 22:53] LABS: Basophils % 0.3 %; Eosinophils # 0.1 10^3/uL (0.0-0.8); Eosinophils % 0.6 %; Hematocrit 32.7 % (42.0-52.0); Hemoglobin 10.5 g/dL (11.7-16.6); Lymphocytes # 0.7 10^3/uL (0.8-4.8); Lymphocytes % 4.8 %; Mean Corpuscular HGB Conc 32.1 g/dL (30.0-36.0); Mean Corpuscular Hemoglobin 31.3 pg (28.0-34.0); Mean Corpuscular Volume 97.3 fl (80-94); Mean Platelet Volume 9.5 fL (7.4-10.4); Monocytes # 1.4 10^3/uL (0.2-0.9); Monocytes % 9.7 %; Neutrophils # 11.92 10^3/uL (1.8-7.7); Neutrophils % 84.2 %; Nucleated Red Blood Cells % 0 %; Platelet Count 353 10^3/cmm (130-400); Red Blood Count 3.36 10^6/uL (4.1-5.3); Red Cell Distribution Width 14.8 % (12.1-15.1); White Blood Count 14.2 10^3/uL (4.0-10.0)
[2021-12-17 23:24] LABS: Troponin(5th) Baseline 14 ng/L (0-15)
[2021-12-17 23:29] LABS: Alanine Aminotransferase 13 U/L (0-41); Albumin Level 3.7 g/dL (3.5-5.2); Alkaline Phosphatase 83 IU/L (40-130); Anion Gap 15.1 (5-19); Aspartate Amino Transferase 18 U/L (0-40); Blood Urea Nitrogen 31 mg/dL (8-23); Calcium 9.5 mg/dL (8.5-10.5); Carbon Dioxide 30 mmol/L (22-29); Chloride 100 mmol/L (98-107); Globulin 3.9 g/dL (1.3-4.6); Glucose 123 mg/dL (65-115); Lipase 19 U/L (13-60); NT Pro B Type Natriuretic Pept 882 pg/mL (0-450); Osmolality Calculated 298 mOsm/kg (285-295); Potassium 5.1 mmol/L (3.5-5.1); Sodium 140 mmol/L (136-145); Total Bilirubin 0.3 mg/dL (0.15-1.2); Total Protein 7.6 g/dL (6.6-8.7)
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
[2021-12-18 00:34] LABS: ABG PCO2 46.6 mmHg (35-45); ABG PH Result 7.41 (7.35-7.45); Arterial Blood Gas Hematocrit 31.3 % (42-52); Base Excess ABG 4.5 mmol/L (-2.0-2.0); Blood Gas Allen Test Pos; Blood Gas Operator Identificat WALCI; Blood Gas Sample Site Radial, right; Blood Gas Sample Type Arterial; HCO3 ABG 29.7 mmol/L (22-26); Oxygen Device NC; PO2 ABG 97.7 mmHg (80.0-100.0)
[2021-12-18 00:52] VITALS: PULSE 117; RESP 20; O2SAT 96
[2021-12-18] MEDS: ipratropium-albuterol 3 mL Neb INHALATION (00:53)
[2021-12-18 00:56] VITALS: PULSE 118
[2021-12-18] MEDS: doxycycline 100 MG in sodium chloride 0.9% (plus) 100 ML IV (01:01)
[2021-12-18 01:35] LABS: Troponin 5 2HR 14.01 ng/L (0-15)
[2021-12-18 01:36] LABS: C Reactive Protein 277.2 mg/L (0.0-4.9)
[2021-12-18 01:43] LABS: Procalcitonin 0.18 ng/mL (0-0.5)
[2021-12-18 02:20] LABS: Troponin 5 2HR Delta 0.01 ABS# (0-10)
[2021-12-18 02:59] LABS: Adenovirus Not Detected (NOT DETECT); Chlamydia Pneumoniae Not Detected (NOT DETECT); Coronavirus 229E,HKU1,NL63,OC4 Not Detected (NOT DETECT); Human Metapneumovirus Not Detected (NOT DETECT); Human Rhinovirus/Enterovirus Not Detected (NOT DETECT); Influenza A Not Detected (NOT DETECT); Influenza A H1 Not Detected (NOT DETECT); Influenza A H1-2009 Not Detected (NOT DETECT); Influenza A H3 Not Detected (NOT DETECT); Influenza B Not Detected (NOT DETECT); Mycoplasma Pneumoniae Not Detected (NOT DETECT); Parainfluenza Virus Type 1 Not Detected (NOT DETECT); Parainfluenza Virus Type 2 Not Detected (NOT DETECT); Parainfluenza Virus Type 3 Not Detected (NOT DETECT); Parainfluenza Virus Type 4 Not Detected (NOT DETECT); Respiratory Syncytial Virus A Not Detected (NOT DETECT); Respiratory Syncytial Virus B Not Detected (NOT DETECT); SARS-COV-2 Not Detected (NOT DETECT)
[2021-12-18 06:00] VITALS: BP 121/73; PULSE 79; RESP 24; TEMP 36.7; O2SAT 96
== END 2021-12-18 06:03 | disposition home or self-care (01) ==
PROVIDERS: Emergency Medicine; Emergency Provider Emergency Medicine; PCP Internal Medicine
DX: J18.9 Pneumonia, unspecified organism (principal); J44.1 Chronic obstructive pulmonary disease with (acute) exacerbation; J44.0 Chronic obstructive pulmonary disease with (acute) lower respiratory infection; J96.11 Chronic respiratory failure with hypoxia; Z87.891 Personal history of nicotine dependence; Z20.822 Contact with and (suspected) exposure to COVID-19; Z99.81 Dependence on supplemental oxygen
CPT/HCPCS: 36600; 71045; 80053; 82803; 83690; 83880; 84145; 84484; 85025; 86140; 87040; 87635; 93005; 94640; 96365; 96375; 99285; J2930; J3490

== ENCOUNTER → 2022-01-20 09:15 | Outpatient (BNVA) | payer MEDICARE, SELFPAY | PROVIDERS: PCP Internal Medicine; Visit Provider Internal Medicine Critical Care Medicine | DX: J44.9 Chronic obstructive pulmonary disease, unspecified (principal); J96.11 Chronic respiratory failure with hypoxia; R91.1 Solitary pulmonary nodule; Z87.891 Personal history of nicotine dependence | CPT/HCPCS: 99214 ==

== ENCOUNTER 2022-01-24 09:32 | Outpatient (CLI) | payer MEDICARE, SELFPAY ==
--- NOTE | 2022-01-24 10:10 | FL_ITS ---
WS: [id number] Barium swallow and esophagram, 01/24/2022 Clinical Data: DYSPHAGIA Comparison: None. Fluoroscopy time: 0min [id number] # of spot films: 30 Findings: The patient swallowed the thick and thin barium, and it flowed into the hypopharynx without hesitatio n. No stricture, mass, polyp or erosion was seen. There is no aspiration or penetration. However resi dual barium resided within the pharynx and it cleared slowly. There is minimal anterior osteoarthriti c spurring of the thoracic spine. There was pooling in the vallecula and piriform sinuses. The barium entered the esophagus and there was normal motility throughout. No hiatal hernia, reflux, stricture, polyp, mass, erosion or ulcer was noted. FL/FL barium swallow [id number] Impression: 1. Delayed clearing of barium from the hypopharynx with no aspiration or penetr ation. 2. Normal esophagram.
== END 2022-01-24 09:33 | disposition home or self-care (01) ==
LOC: RAD 09:34
PROVIDERS: PCP Internal Medicine; Visit Provider Surgery
DX: R13.10 Dysphagia, unspecified (principal)
CPT/HCPCS: 74220

== ENCOUNTER → 2022-01-28 14:51 | Outpatient (BNVA) | payer MEDICARE, SELFPAY | PROVIDERS: PCP Internal Medicine; Visit Provider Surgery | DX: Z09 Encounter for follow-up examination after completed treatment for conditions other than malignant neoplasm (principal) | CPT/HCPCS: 99212 ==

== ENCOUNTER 2022-02-13 15:23 | Outpatient (CLI) | payer MEDICARE, SELFPAY ==
--- NOTE | 2022-02-13 15:30 | CT_ITS ---
WS: [id number] CT CHEST WITHOUT INTRAVENOUS CONTRAST HISTORY: Pulmonary nodule TECHNIQUE: Contiguous 5 mm axial imaging performed on the thorax. Coronal and sagittal reformats are submitted. All CT scans at [facility] use at least one of these dose optimization techniques: automated exposure control; mA and/or kV adjustment per patient size (includes targeted exams where dose is matched to clinical indication); or iterative reconstruction. CONTRAST: None DLP: 544.60 mGy.cm COMPARISON: 03/22/2021 and 06/29/2020, 03/09/2018 Lungs and central airway: Pulmonary hyperexpansion and severe chronic centrilobular emphysema. Bilate ral dependent consolidations are probably atelectasis. These have increased slightly since the prior study. Subsolid 11 mm opacification in the RIGHT lower lobe unchanged at 12 mm. There are additional bilateral lower lobe pulmonary nodules measuring 6 to 7 mm which are unchanged. No new mass or nodule . No pneumonia. Soft tissue nodules within the trachea and extending into the LEFT lower lobe mainste m bronchus. Consistent with mucus secretions. Pleura: No pleural effusion. Heart and pericardium: Normal size heart with no pericardial effusion. Mediastinum and talia: No adenopathy. Vessels: Mildly ectatic thoracic aorta with moderate calcification. No aneurysm. Pulmonary artery siz e is top normal. Moderate coronary artery calcifications. Chest wall and lower neck: No soft tissue masses. Upper abdomen: Ectatic suprarenal aorta. Mild ectasia and dilatation to 3.0 cm. Calcification at the origins of the celiac axis and SMA. Bilateral renal low-attenuation masses. No adrenal mass. Osseous structures: No destructive process. CT/CT chest wo con [id number] IMPRESSION: 1. Severe centrilobular emphysema. 2. Bilateral lower lobe pulmonary nodules and RIGHT lower lobe subsolid opacif ication. Subsolid opacification is stable at 11 mm. No increase in size and num fransisca of the nodules. These nodules and semisolid opacification were present on . No additional follow-up necessary unless there is a change in the pat ient's condition.
== END 2022-02-13 15:24 | disposition home or self-care (01) ==
LOC: RAD 15:26
PROVIDERS: PCP Internal Medicine; Visit Provider Internal Medicine Critical Care Medicine
DX: R91.1 Solitary pulmonary nodule (principal); J43.2 Centrilobular emphysema; R91.8 Other nonspecific abnormal finding of lung field
CPT/HCPCS: 71250

== ENCOUNTER 2022-02-13 15:24 | Outpatient (CLI) | payer MEDICARE, SELFPAY ==
--- NOTE | 2022-02-13 16:00 | CT_ITS ---
WS: [id number] CT ANGIOGRAM CAROTID ARTERIES HISTORY: Carotid Stenosis TECHNIQUE: CT angiogram is performed of the carotid arteries. During arterial injection imaging is ob tained from the skull base to the aortic arch in 0.5 mm imaging. Coronal and sagittal reformats are s ubmitted, MIP imaging also reviewed. Additional multiplanar reformats of the carotid arteries are sub mitted. NASCET criteria utilized. All CT scans at [facility] use at least one of these dose o ptimization techniques: automated exposure control; mA and/or kV adjustment per patient size (include s targeted exams where dose is matched to clinical indication); or iterative reconstruction. CONTRAST: Visipaque 320; 75 mL IV. DLP: 270.31 mGy.cm COMPARISON: 03/21/2021 and carotid ultrasound 10/23/2021 Right carotid: Common carotid artery: Origin of the innominate from the aorta is not included. Mild plaque at the or igin of the RIGHT common carotid artery. Focal plaque ulceration mid cervical carotid artery. There i s a moderate amount of thrombus throughout the common carotid artery with calcification. Focal plaque beginning at the bifurcation. Internal carotid artery: Calcified plaque and mild intimal thickening at the bifurcation and a proxim al ICA. Stenosis estimated near 50%. Minimal transverse diameter is greater than 3 mm. External carotid artery: Patent. Left carotid: Common carotid artery: Origin is not included from the aorta. There is mild intimal thickening and ca lcified plaque throughout the cervical carotid artery. Increasing calcification and plaque at the bif urcation. Internal carotid artery: Complete occlusion of the proximal ICA to the bifurcation. External carotid artery: Patent. Right vertebral artery: Unremarkable. Left vertebral artery: Unremarkable. Arises normally from the left subclavian artery. Subclavian arteries: Mild stenosis involving the origin of the LEFT subclavian artery, less than 50%. Very slight narrowing of the distal LEFT subclavian artery atherosclerotic plaque in the RIGHT subcl brian artery but no stenosis. Upper thorax: Severe centrilobular emphysema at the lung apices. Consolidations in the posterior uppe r lobes probably fibrosis and atelectasis. Mild atherosclerotic plaque within the aortic arch. Debris noted within the trachea on a CT from the chest was also performed and 02/13/2022. Suspect mucous secr etions as it does move between the 2 CT examinations. Thyroid gland: Normal. Osseous structures: Cervical spondylosis. Severe facet joint arthritis throughout the cervical spine. Skull base: Negative. CT/CT angio neck [id number] IMPRESSION: 1. Chronic LEFT cervical ICA occlusion. 2. Atherosclerotic plaque at the RIGHT carotid bifurcation with stenosis estim ated at 50% involving the proximal ICA. 3. A new focal ulcerated plaque mid RIGHT cervical common carotid artery.
[2022-02-13 16:22] LABS: Blood Urea Nitrogen 29 mg/dL (8-23)
[2022-02-13] MEDS: iodixanol 320 mg/mL 100mL Btl IV (16:45)
== END 2022-02-13 15:25 | disposition home or self-care (01) ==
LOC: RAD 15:26
PROVIDERS: PCP Internal Medicine; Visit Provider Internal Medicine
DX: I65.29 Occlusion and stenosis of unspecified carotid artery (principal)
CPT/HCPCS: 70498; 82565; 84520

== ENCOUNTER → 2022-04-09 13:03 | Outpatient (BNVA) | payer MEDICARE, SELFPAY | PROVIDERS: PCP Internal Medicine; Visit Provider Internal Medicine | DX: I25.10 Atherosclerotic heart disease of native coronary artery without angina pectoris (principal); I65.29 Occlusion and stenosis of unspecified carotid artery; J44.9 Chronic obstructive pulmonary disease, unspecified; F17.200 Nicotine dependence, unspecified, uncomplicated | CPT/HCPCS: 99214 ==

== ENCOUNTER 2022-05-18 14:10 | Emergency (ER) | payer MEDICARE, SELFPAY ==
[2022-05-18 14:17] VITALS: BP 134/67; PULSE 112; RESP 22; TEMP 36.6; O2SAT 94; BMI 18.2
--- NOTE | 2022-05-18 15:39 | ED_ITS ---
Documented by User: Lalita Raygoza PA-C 05/18/22 17:02 HPI - Male Genitourinary General: Chief complaint: Urogenital-Male Stated complaint: unable to urinate Time Seen by Provider: 05/18/22 15:20 Source: patient Mode of arrival: ambulatory Limitations: no limitations History of Present Illness: 81-year-old male presents to the ER today for difficulty urinating and increased lower abdominal pain since this morning. Patient reports the last time he urinated was at midnight. Patient reports up until then things were fine. He denies this ever having happened before. Briana stewart reports he went normally at midnight and then has been unable to urinate since. Patient reports he does have a history of kidney stones however reports no pain other than in the area of his bladder where he feels discomfort from not urinating. Patient also has a history of BPH for which she takes tamsulosin. Patient also has a history of bladder cancer. Patient denies that he had any burning with urination last night. Denies any fever or chills at this time. Denies any abdominal pain. Review of Systems General: Reports: 10 or more systems reviewed and unremarkable except in HPI and below PFSH ED PFSH: Medical History Benign prostatic hyperplasia with lower urinary tract symptoms Bladder cancer Chronic prostatitis COPD (chronic obstructive pulmonary disease) Internal carotid artery stenosis Respiratory failure Urolithiasis Surgical History H/O esophagogastroduodenoscopy (11/27/21) History of amputation of toe History of appendectomy History of colonoscopy History of inguinal hernia repair right History of tonsillectomy History of transurethral destruction of bladder lesion S/P trigger finger release Status post left inguinal hernia repair Status post right inguinal hernia repair (11/21/20) Recurrent Family History Mother , at age 84-leukemia No problems noted. Father , at age 64--heart attack No problems noted. Social History Smoking and tobacco status: current every day smoker Quit status (tobacco): has quit using tobacco Alcohol intake: never Marital status: Current occupational status: retired History of recent travel: No Physical Exam Const: COMMON NORMALS: average body habitus, patient oriented x3, no limitations, healthy appearing, alert and well nourished Resp: COMMON NORMALS: normal respiratory effort, No retractions and clear to auscultation bilaterally AUSCULTATION: clear to auscultation bilaterally Cardio: COMMON NORMALS: regular rate, regular rhythm and No murmurs present (Cardio) RATE: regular rate RHYTHM: regular rhythm GI: PALPATION: Yes Bladder palpation abnormal OTHER: Patient is nontender other than the lower abdominal area. This is mostly suprapubic tenderness with some distention noted in the suprapubic area. : COMMON NORMALS: Yes no CVA tenderness BLADDER/KIDNEY EXAM: Yes no CVA tenderness and Yes Bladder palpation abnormal Bladder abnormal details: tender and distended midway to the umbilicus Back/Pelvis: COMMON NORMALS: no CVA tenderness Extremity: COMMON NORMALS: normal to inspection and full ROM Neuro: COMMON NORMALS: patient oriented x3 SENSORIUM/ORIENTATION: Yes alert Psych: COMMON NORMALS: mental status grossly normal, Normal thought process present and cooperative THOUGHT PROCESS: Normal thought process present Skin: COMMON NORMALS: no rashes or lesions noted and no wounds GENERAL SKIN EXAM: no rashes or lesions noted Course ED course: Patient presents for difficulty urinating since midnight last night. On bladder scan patient appears to have as much is 800 cc in his bladder. This is likely causing the significant discomfort and abnormal palpation of the bladder that we are feeling. We will place patient with a Harding cath at this time. We will get a UA and labs also. Vital Signs: Vital signs: Vital Signs Temperature 97.8 F 05/18/22 15:46 Pulse Rate 103 H 05/18/22 17:17 Respiratory Rate 18 05/18/22 17:17 Blood Pressure 122/70 05/18/22 17:17 Pulse Oximetry 100 05/18/22 17:17 Oxygen Delivery Me thod 05/18/22 16:27 Oxygen Flow Rate 3 05/18/22 15:46 MDM - Male Medical Decision Making On bladder scanner, patient did appear to have significant urine. A catheter was placed given the large amount in the bladder. 1200 mL so far have been drained. Patient's discomfort has completely resolved at this time. UA is normal other than some red blood cells. Patient's white count is slightly bumped 11.1 however I do not think that is due to the urine. Patient is producing good urine at this time. He already has established with Dr. Uriostegui for past issues. I discussed this patient with Dr. Hernandez. We will leave patient's catheter in place at this time so that he does not have the same issue tonight. Patient should follow-up in the next 1 [address] Uriostegui. If unable to get in with him I would recommend patient go to his PCP. For new or worsening symptoms return to the ER. Patient verbalized understanding and was in agreement with the treatment plan. Lab Data : 05/18/22 16:25 05/18/22 16:25 Laboratory Results WBC 11.1 10^3/uL (4.0-10.0) H 05/18/22 16:25 RBC 3.20 10^6/uL (4.1-5.3) L 05/18/22 16: Hgb 10.0 g/dL (11.7-16.6) L 05/18/22 16:25 Hct 32.0 % (42.0-52.0) L 05/18/22 16: MCV 100.0 fl (80-94) H 05/18/22 16: MCH 31.3 pg (28.0-34.0) 05/18/22 16: MCHC 31.3 g/dL (30.0-36.0) 05/18/22 16: RDW 13.5 % (12.1-15.1) 05/18/22 16: Plt Count 270 10^3/cmm (130-400) 05/18/22 16:25 MPV 9.5 fL (7.4-10.4) 05/18/22 16:25 Neut % (Auto) 85.8 % 05/18/22 16: Lymph % (Auto) 5.9 % 05/18/22 16:25 Jennings % (Auto) 6.6 % 05/18/22 16:25 Eos % (Auto) 0.9 % 05/18/22 16: Baso % (Auto) 0.4 % 05/18/22 16: Neut # (Auto) 9.50 10^3/uL (1.8-7.7) H 05/18/22 16:25 Lymph # (Auto) 0.7 10^3/uL (0.8-4.8) L 05/18/22 16:25 Jennings # (Auto) 0.7 10^3/uL (0.2-0.9) 05/18/22 16:25 Eos # (Auto) 0.1 10^3/uL (0.0-0.8) 05/18/22 16:25 Baso # (Auto) 0.0 10^3/uL (0.0-0.1) 05/18/22 16:25 Nucleated RBC % (auto) 0 % 05/18/22 16:25 Nucleated RBCs # 0.0 /100WBC 05/18/22 16:25 Sodium 136 mmol/L (136-145) 05/18/22 16:25 Potassium 5.3 mmol/L (3.5-5.1) H 05/18/22 16:25 Chloride 98 mmol/L (98-107) 05/18/22 16:25 Carbon Dioxide 30 mmol/L (22-29) H 05/18/22 16:25 Anion Gap 13.3 (5-19) 05/18/22 16:25 BUN 24 mg/dL (8-23) H 05/18/22 16:25 Creatinine 1.3 mg/dL (0.7-1.2) H 05/18/22 16:25 GFR Calculation Not Reportable 05/18/22 16:25 Glucose 98 mg/dL (65-115) 05/18/22 16:25 Calculated Osmolality 286 mOsm/kg (285-295) 05/18/22 16:25 Calcium 9.2 mg/dL (8.5-10.5) 05/18/22 16:25 Total Bilirubin 0.3 mg/dL (0.15-1.2) 05/18/22 16:25 AST 14 U/L (0-40) 05/18/22 16:25 ALT 12 U/L (0-41) 05/18/22 16:25 Alkaline Phosphatase 66 U/L (40-130) 05/18/22 16:25 Total Protein 6.5 g/dL (6.6-8.7) L 05/18/22 16:25 Albumin 3.6 g/dL (3.5-5.2) 05/18/22 16:25 Globulin 2.9 g/dL (1.3-4.6) 05/18/22 16:25 Urine Color Straw (Yellow) 05/18/22 15:43 Urine Appearance Clear (CLEAR) 05/18/22 15:43 Urine pH 7 (5-7) 05/18/22 15:43 Ur Specific Orange 1.010 (1.005-1.030) 05/18/22 15:43 Urine Protein Neg (Negative) 05/18/22 15:43 Urine Glucose (UA) Norm (Normal) 05/18/22 15:43 Urine Ketones Negative (Negative) 05/18/22 15:43 Urine Blood 2+ (Negative) H 05/18/22 15:43 Urine Nitrate Negative (Negative) 05/18/22 15:43 Urine Bilirubin Neg (Negative) 05/18/22 15:43 Urine Urobilinogen Norm mg/dL (Negative) 05/18/22 15:43 Ur Leukocyte Esterase Negative (Negative) 05/18/22 15:43 Urine RBC 5-10 /hpf (0-2) H 05/18/22 15:43 Urine WBC Rare /hpf (0-5) 05/18/22 15:43 Ur Squamous Epith Cells None /hpf (0-5) 05/18/22 15:43 Amorphous Sediment Not Reportable 05/18/22 15:43 Urine Bacteria Trace /hpf (NONE) 05/18/22 15:43 Critical Care Time Critical Care Time: Critical Care Time: No Discharge Plan Discharge Patient Disposition: Home Clinical Impression: Acute urinary retention Condition: Stable Prescriptions: No Action albuterol sulfate [ProAir HFA] 90 mcg/actuation HFA aerosol inhaler 2 puff INHALATION Q6H PRN (Reason: Shortness Of Breath) meclizine 25 mg tablet 25 mg PO Q6H PRN (Reason: Dizziness) esomeprazole magnesium [Nexium] 20 mg capsule,delayed release(DR/EC) 20 mg PO DAILY mecobalamin (vitamin B12) 5,000 mcg tablet,disintegrating 5,000 mcg PO DAILY ipratropium-albuterol 0.5 mg-3 mg(2.5 mg base)/3 mL solution for nebulization 3 ml inhalation Q6H Qty: 360 4RF aspirin 81 mg tablet,delayed release (DR/EC) 81 mg PO DAILY Qty: 90 3RF tamsulosin 0.4 mg capsule See Rx Instructions .ROUTE .COMPLEX Qty: 180 3RF Dose Instruction: Take 1 capsule by mouth twice daily Rx Instructions: Take 1 capsule by mouth twice daily clopidogrel 75 mg tablet 75 mg PO DAILY Qty: 90 3RF carvedilol 3.125 mg tablet 3.125 mg PO BID Qty: 180 3RF atorvastatin 40 mg tablet 40 mg PO QAM Qty: 90 3RF budesonide [Pulmicort] 0.5 mg/2 mL suspension for nebulization 0.5 mg inhalation BID Qty: 60 4RF Discharge Orders: Discharge ED (Routine); Ordered 05/18/22 Ordered By: Lalita Raygoza Referrals: Sulma Alcantara MD [Primary Care Provider] - Discharge Diet: Usual diet Discharge Activity: Resume usual activity Patient Instructions: Opioid Safety, Pain Management Activity Restrictions/Additional Instructions: Catheter care as discussed. Follow-up with Dr. Uriostegui in the next 1 to 2 days. Return to the ER with new or worsening symptoms. Coding Level of Care Code ED Vat Overhauler for Chg Fwd Exam Comprehensive Documented by User: Anatoliy Mendenhall DO 05/20/22 10:22 HPI - Male Genitourinary General: Chief complaint: Urogenital-Male Stated complaint: unable to urinate Time Seen by Provider: 05/18/22 15:20 [facility] ED PFSH: Medical History Benign prostatic hyperplasia with lower urinary tract symptoms Bladder cancer Chronic prostatitis COPD (chronic obstructive pulmonary disease) Internal carotid artery stenosis Respiratory failure Urolithiasis Surgical History H/O esophagogastroduodenoscopy (11/27/21) History of amputation of toe History of appendectomy History of colonoscopy History of inguinal hernia repair right History of tonsillectomy History of transurethral destruction of bladder lesion S/P trigger finger release Status post left inguinal hernia repair Status post right inguinal hernia repair (11/21/20) Recurrent Family History Mother , at age 84-leukemia No problems noted. Father , at age 64--heart attack No problems noted. Social History Smoking and tobacco status: current every day smoker Quit status (tobacco): has quit using tobacco Alcohol intake: never Marital status: Current occupational status: retired History of recent travel: No Course Vital Signs: Vital signs: Vital Signs Temperature 97.8 F 05/18/22 15:46 Pulse Rate 103 H 05/18/22 17:17 Respiratory Rate 18 05/18/22 17:17 Blood Pressure 122/70 05/18/22 17:17 Pulse Oximetry 100 05/18/22 17:17 Oxygen Delivery Me thod 05/18/22 16:27 Oxygen Flow Rate 3 05/18/22 15:46 MDM - Male Medical Decision Making On bladder scanner, patient did appear to have significant urine. A catheter was placed given the large amount in the bladder. 1200 mL so far have been drained. Patient's discomfort has completely resolved at this time. UA is normal other than some red blood cells. Patient's white count is slightly bumped 11.1 however I do not think that is due to the urine. Patient is producing good urine at this time. He already has established with Dr. Uriostegui for past issues. I discussed this patient with Dr. Hernandez. We will leave patient's catheter in place at this time so that he does not have the same issue tonight. Patient should follow-up in the next [address] Uriostegui. If unable to get in with him I would recommend patient go to his PCP. For new or worsening symptoms return to the ER. Patient verbalized understanding and was in agreement with the treatment plan. Chart reviewed and patient discussed with midlevel. Agree with assessment and plan. Lab Data : 05/18/22 16:25 05/18/22 16:25 Laboratory Results WBC 11.1 10^3/uL (4.0-10.0) H 05/18/22 16:25 RBC 3.20 10^6/uL (4.1-5.3) L 05/18/22 16:25 Hgb 10.0 g/dL (11.7-16.6) L 05/18/22 16:25 Hct 32.0 % (42.0-52.0) L 05/18/22 16:25 MCV 100.0 fl (80-94) H 05/18/22 16:25 MCH 31.3 pg (28.0-34.0) 05/18/22 16:25 MCHC 31.3 g/dL (30.0-36.0) 05/18/22 16:25 RDW 13.5 % (12.1-15.1) 05/18/22 16:25 Plt Count 270 10^3/cmm (130-400) 05/18/22 16:25 MPV 9.5 fL (7.4-10.4) 05/18/22 16:25 Neut % (Auto) 85.8 % 05/18/22 16:25 Lymph % (Auto) 5.9 % 05/18/22 16:25 Jennings % (Auto) 6.6 % 05/18/22 16:25 Eos % (Auto) 0.9 % 05/18/22 16:25 Baso % (Auto) 0.4 % 05/18/22 16:25 Neut # (Auto) 9.50 10^3/uL (1.8-7.7) H 05/18/22 16:25 Lymph # (Auto) 0.7 10^3/uL (0.8-4.8) L 05/18/22 16:25 Jennings # (Auto) 0.7 10^3/uL (0.2-0.9) 05/18/22 16:25 Eos # (Auto) 0.1 10^3/uL (0.0-0.8) 05/18/22 16:25 Baso # (Auto) 0.0 10^3/uL (0.0-0.1) 05/18/22 16:25 Nucleated RBC % (auto) 0 % 05/18/22 16: Nucleated RBCs # 0.0 /100WBC 05/18/22 16:25 Sodium 136 mmol/L (136-145) 05/18/22 16:25 Potassium 5.3 mmol/L (3.5-5.1) H 05/18/22 16:25 Chloride 98 mmol/L (98-107) 05/18/22 16:25 Carbon Dioxide 30 mmol/L (22-29) H 05/18/22 16:25 Anion Gap 13.3 (5-19) 05/18/22 16:25 BUN 24 mg/dL (8-23) H 05/18/22 16:25 Creatinine 1.3 mg/dL (0.7-1.2) H 05/18/22 16:25 GFR Calculation Not Reportable 05/18/22 16:25 Glucose 98 mg/dL (65-115) 05/18/22 16:25 Calculated Osmolality 286 mOsm/kg (285-295) 05/18/22 16:25 Calcium 9.2 mg/dL (8.5-10.5) 05/18/22 16:25 Total Bilirubin 0.3 mg/dL (0.15-1.2) 05/18/22 16:25 AST 14 U/L (0-40) 05/18/22 16:25 ALT 12 U/L (0-41) 05/18/22 16:25 Alkaline Phosphatase 66 U/L (40-130) 05/18/22 16:25 Total Protein 6.5 g/dL (6.6-8.7) L 05/18/22 16:25 Albumin 3.6 g/dL (3.5-5.2) 05/18/22 16:25 Globulin 2.9 g/dL (1.3-4.6) 05/18/22 16:25 Urine Color Straw (Yellow) 05/18/22 15:43 Urine Appearance Clear (CLEAR) 05/18/22 15:43 Urine pH 7 (5-7) 05/18/22 15:43 Ur Specific Orange 1.010 (1.005-1.030) 05/18/22 15:43 Urine Protein Neg (Negative) 05/18/22 15:43 Urine Glucose (UA) Norm (Normal) 05/18/22 15:43 Urine Ketones Negative (Negative) 05/18/22 15:43 Urine Blood 2+ (Negative) H 05/18/22 15:43 Urine Nitrate Negative (Negative) 05/18/22 15:43 Urine Bilirubin Neg (Negative) 05/18/22 15:43 Urine Urobilinogen Norm mg/dL (Negative) 05/18/22 15:43 Ur Leukocyte Esterase Negative (Negative) 05/18/22 15:43 Urine RBC 5-10 /hpf (0-2) H 05/18/22 15:43 Urine WBC Rare /hpf (0-5) 05/18/22 15:43 Ur Squamous Epith Cells None /hpf (0-5) 05/18/22 15:43 Amorphous Sediment Not Reportable 05/18/22 15:43 Urine Bacteria Trace /hpf (NONE) 05/18/22 15:43 Discharge Plan Discharge Patient Disposition: Home Clinical Impression: Acute urinary retention Condition: Stable Prescriptions: No Action albuterol sulfate [ProAir HFA] 90 mcg/actuation HFA aerosol inhaler 2 puff INHALATION Q6H PRN (Reason: Shortness Of Breath) meclizine 25 mg tablet 25 mg PO Q6H PRN (Reason: Dizziness) esomeprazole magnesium [Nexium] 20 mg capsule,delayed release(DR/EC) 20 mg PO DAILY mecobalamin (vitamin B12) 5,000 mcg tablet,disintegrating 5,000 mcg PO DAILY ipratropium-albuterol 0.5 mg-3 mg(2.5 mg base)/3 mL solution for nebulization 3 ml inhalation Q6H Qty: 360 4RF aspirin 81 mg tablet,delayed release (DR/EC) 81 mg PO DAILY Qty: 90 3RF tamsulosin 0.4 mg capsule See Rx Instructions .ROUTE .COMPLEX Qty: 180 3RF Dose Instruction: Take 1 capsule by mouth twice daily Rx Instructions: Take 1 capsule by mouth twice daily clopidogrel 75 mg tablet 75 mg PO DAILY Qty: 90 3RF carvedilol 3.125 mg tablet 3.125 mg PO BID Qty: 180 3RF atorvastatin 40 mg tablet 40 mg PO QAM Qty: 90 3RF budesonide [Pulmicort] 0.5 mg/2 mL suspension for nebulization 0.5 mg inhalation BID Qty: 60 4RF Discharge Orders: Discharge ED (Routine); Ordered 05/18/22 Ordered By: Lalita Raygoza Referrals: Sulma Alcantara MD [Primary Care Provider] - Discharge Diet: Usual diet Discharge Activity: Resume usual activity Patient Instructions: Opioid Safety, Pain Management Activity Restrictions/Additional Instructions: Catheter care as discussed. Follow-up with Dr. Uriostegui in the next 1 to 2 days. Return to the ER with new or worsening symptoms. Coding Level of Care Code ED Vat Overhauler for Jesica Fwd Exam Comprehensive
[2022-05-18 15:46] VITALS: BP 134/67; PULSE 112; RESP 22; TEMP 36.6; O2SAT 94
[2022-05-18 16:06] LABS: Add Urine Culture? No; Add Urine Microscopic? YES; Bacteria Urine TRACE /hpf; Bilirubin Urine Neg (Negative); Blood Urine 2+ (Negative); Glucose Urine UA Norm (Normal); Ketones Urine Negative (Negative); Leukocyte Esterase Urine Negative (Negative); Nitrate Urine Negative (Negative); Protein Urine Neg (Negative); Urine Appearance Clear (CLEAR); Urine Color Straw (Yellow); Urobilinogen Urine Norm (Negative); WBC Urine RARE /hpf (0-5); pH Urine 7 (5-7)
[2022-05-18 16:27] VITALS: BP 122/70; PULSE 103; RESP 18; O2SAT 100
[2022-05-18 16:29] LABS: Basophils % 0.4 %; Eosinophils # 0.1 10^3/uL (0.0-0.8); Eosinophils % 0.9 %; Lymphocytes # 0.7 10^3/uL (0.8-4.8); Lymphocytes % 5.9 %; Mean Corpuscular HGB Conc 31.3 g/dL (30.0-36.0); Mean Corpuscular Hemoglobin 31.3 pg (28.0-34.0); Mean Platelet Volume 9.5 fL (7.4-10.4); Monocytes # 0.7 10^3/uL (0.2-0.9); Monocytes % 6.6 %; Neutrophils % 85.8 %; Nucleated Red Blood Cells % 0 %; Platelet Count 270 10^3/cmm (130-400); Red Cell Distribution Width 13.5 % (12.1-15.1); White Blood Count 11.1 10^3/uL (4.0-10.0)
[2022-05-18 16:57] LABS: Alanine Aminotransferase 12 U/L (0-41); Albumin Level 3.6 g/dL (3.5-5.2); Alkaline Phosphatase 66 U/L (40-130); Anion Gap 13.3 (5-19); Aspartate Amino Transferase 14 U/L (0-40); Blood Urea Nitrogen 24 mg/dL (8-23); Calcium 9.2 mg/dL (8.5-10.5); Carbon Dioxide 30 mmol/L (22-29); Chloride 98 mmol/L (98-107); Globulin 2.9 g/dL (1.3-4.6); Glucose 98 mg/dL (65-115); Osmolality Calculated 286 mOsm/kg (285-295); Potassium 5.3 mmol/L (3.5-5.1); Sodium 136 mmol/L (136-145); Total Bilirubin 0.3 mg/dL (0.15-1.2); Total Protein 6.5 g/dL (6.6-8.7)
[2022-05-18 17:17] VITALS: BP 122/70; PULSE 103; RESP 18; O2SAT 100
--- NOTE | 2022-05-19 13:52 | DCPLANNER ---
Addendum entered by Renetta Morrow 07/02/22 15:24: Patient had a follow up appointment scheduled with urology - patient did attend appointment, Addendum entered by Renetta Morrow 05/22/22 16:53: Patient has a follow up appointment scheduled for Thursday, June 04, 2022 at 9:[address] Uriostegui at urology. clinic will call patient with appointment information. Original Note: medical office manager had message to schedule a follow up appointment for patient with urology. medical office manager sent patients information to the front office staff at urology. Patients information will be printed and reviewed. Clinic will call patient with appointment information.
== END 2022-05-18 17:18 | disposition home or self-care (01) ==
PROVIDERS: Emergency Provider Physician Assistant; PCP Internal Medicine
DX: R33.9 Retention of urine, unspecified (principal); F17.200 Nicotine dependence, unspecified, uncomplicated
CPT/HCPCS: 80053; 81001; 85025; 99283

== ENCOUNTER → 2022-06-04 09:15 | Outpatient (BNVA) | payer MEDICARE, SELFPAY | PROVIDERS: PCP Internal Medicine; Visit Provider Urology | DX: C67.9 Malignant neoplasm of bladder, unspecified (principal); N20.9 Urinary calculus, unspecified; R97.20 Elevated prostate specific antigen [PSA]; R33.8 Other retention of urine; N40.1 Benign prostatic hyperplasia with lower urinary tract symptoms | CPT/HCPCS: 99213 ==

== ENCOUNTER → 2022-06-18 14:13 | Outpatient (BNVA) | payer MEDICARE, SELFPAY | PROVIDERS: PCP Internal Medicine; Visit Provider Urology | DX: C67.9 Malignant neoplasm of bladder, unspecified (principal); R33.8 Other retention of urine | CPT/HCPCS: 52000; 81003; 99213 ==